=== PATIENT | male | born 1975 | race Caucasian/White ===

== ENCOUNTER 2016-05-07 18:36 | Observation (INO) ==
[2016-05-07] MEDS ORDERED: cloNIDine HCl 0.1 MG TABLET PO ONE (19:48)
--- NOTE | 2016-05-07 20:19 | Emergency Department Note ---
Disposition Clinical Impression: Asymptomatic hypertensive urgency Chronic pain Qualifiers: Chronic pain type: chronic pain syndrome Qualified Code(s): G89.4 - Chronic pain syndrome Disposition: Admitted As Inpatient Referrals: NO,PCP [Non-Partnered Physician] - Forms: Work/School Release, ED Satisfaction Letter Chest Pain HPI - General Chief Complaint: ED General Medical Stated Complaint: lung pain Time Seen by Provider: 05/07/16 19:30 Source: patient Vital Signs Reviewed: Yes Nursing Notes Reviewed: Yes - History of Present Illness HPI Narrative: Patient is here for chronic pleuritic chest pain he states when his chronic pain is flaring up they can control his blood pressure he comes in today with a 240 systolic blood pressure. He states is compliant with his medications and has taken all of his daily prescribed doses. Duration: constant Onset: during rest Pain Location: other (peluritic) Severity scale (1-10): 8 Quality: aching Pain Radiation: none Improves with: nothing Worsens with: nothing Associated symptoms: Denies: nausea, vomiting, diaphoresis, dyspnea, sense of impending doom, syncope, palpitations, leg swelling Treatments prior to arrival chest pain: other (oxycodone BP meds) - Related Data Home Medications Medication Instructions Recorded Confirmed Amlodipine [Norvasc] 10 mg PO BID 05/12/15 03/22/16 Calcium Acetate [Phos-LO] 1,334 mg PO TID 05/12/15 03/22/16 CloNIDine HCl [Clonidine HCl] 0.2 mg PO TID 05/12/15 03/22/16 Labetalol HCl 300 mg PO Q8H 05/12/15 03/22/16 Lisinopril [Zestril] 40 mg PO BID 05/12/15 03/22/16 Oxycodone HCl 10 - 20 mg PO Q4H PRN 01/22/16 03/22/16 Sertraline [Zoloft] 100 mg PO HS 01/22/16 03/22/16 NiCARdipine [Cardene] 20 mg PO TID 03/22/16 03/22/16 Renal Vitamin [Renal Caps Softgel] 1 mg PO DAILY 03/22/16 03/22/16 Testosterone [Androgel] 1.25 gm TD DAILY 03/22/16 03/22/16 Previous Rx's Medication Instructions Recorded HydrALAZINE 75 mg PO TID #0 01/24/16 Aspirin Enteric Coated [Aspirin EC] 81 mg PO DAILY #30 tablet. 03/24/16 Docusate [Colace] 100 mg PO BID capsule 03/24/16 Isosorbide DInitrate [Isordil] 20 mg PO TIDAC #90 tablet 03/24/16 Lisinopril [Zestril] 40 mg PO DAILY tablet 03/24/16 NiCARdipine [Cardene] 20 mg PO TID #90 capsule 03/24/16 Oxycodone HCl 10 - 20 mg PO Q4HR PRN #30 tab 03/24/16 Allergies Allergy/AdvReac Type Severity Reaction Status Date / Time Cephalosporins Allergy Hives Verified 05/07/16 19:16 codeine Allergy Hives Verified 05/07/16 19:16 Sulfa (Sulfonamide Allergy Hives Verified 05/07/16 19:16 Antibiotics) morphine AdvReac Difficulty Verified 05/07/16 19:16 Breathing All systems ED: reviewed and negative except as stated. Constitutional: Denies: fever, chills, weakness Gastrointestinal: Denies: abdominal pain, nausea, vomiting Chest Pain PMH - Past Medical History Medical history: Reports: arthritis, CHF, hypertension, pulmonary embolus, renal disease Surgical history: Reports: vascular surgery, other (Renal transplant 2003 and subsequent failure with removal of transplant 2013. AV fistula placement. Pleurodesis for recurrent left-sided pleural effusion.) Psychiatric history: Reports: anxiety, depression - Social History Smoking Status: Never smoker Alcohol use: Reports: none Drug use: Reports: none Physical Exam - General Limitations: no limitations General appearance: alert, in no apparent distress - Head Head exam: atraumatic, normocephalic, normal inspection - Eye Eye exam: Present: normal appearance, PERRL, EOMI - Expanded Eye Exam Pupils: Left: reactive - ENT ENT exam: normal exam, normal oropharynx, mucous membranes moist - Expanded ENT Exam External ear exam: Present: normal external inspection Mouth exam: Present: normal external inspection Teeth exam: Present: normal inspection Throat exam: Present: normal inspection - Neck Neck exam: Present: normal inspection, full ROM, trachea midline - Chest Chest inspection: Present: normal inspection, symmetric chest wall rise - Respiratory Respiratory exam: Present: normal lung sounds bilaterally - Cardiovascular Cardiovascular exam: Present: regular rate, normal rhythm, normal heart sounds - Abdominal Exam Abdominal exam: Present: soft, Non-Tender. Absent: tenderness, distention, guarding, rebound, rigidity - Extremities Exam Extremities exam: Present: normal inspection, full ROM. Absent: tenderness, pedal edema - Expanded Upper Extremity Exam Shoulder exam: Present: normal inspection, full ROM Arm exam: Present: other (Fistula left arm) Elbow exam: Present: normal inspection, full ROM Forearm/Wrist exam: Present: normal inspection, full ROM Hand exam: Present: normal inspection, full ROM Vascular exam: Normal: capillary refill, radial pulse - Expanded Lower Extremity Exam Hip/Pelvis exam: Present: normal inspection, full ROM Upper leg exam: Present: normal inspection, full ROM Knee exam: Present: normal inspection, full ROM Lower leg exam: Present: normal inspection, full ROM Ankle exam: Present: normal inspection, full ROM Foot/toe exam: Present: normal inspection, full ROM Neurovascular/Tendon exam: Absent: motor deficit, sensory deficit, tendon deficit - Back Exam Back exam: Present: normal inspection, full ROM. 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 Daniel did have dialysis today he states he is compliant with his medication I did make him aware of the patient's OARRS report, from March 27 and to April 15 he received a total of 600 tablets of oxycodone 10 mg. Time: 21:30 Vital Signs Temperature 98.9 F 05/07/16 19:10 Pulse Rate 64 05/07/16 19:10 Respiratory Rate 16 05/07/16 19:10 Blood Pressure 237/106 05/07/16 19:10 O2 Sat by Pulse Oximetry 99 05/07/16 19:10 Temperature 98.9 F 05/07/16 19:10 Pulse Rate 64 05/07/16 21:17 Respiratory Rate 16 05/07/16 21:17 Blood Pressure 195/112 05/07/16 21:17 O2 Sat by Pulse Oximetry 100 05/07/16 20:47 Oxygen Delivery Oxygen Delivery Room Air Chest Pain - Differential Diagnosis Likely: fracture of rib, stable angina, unstable angina pectoris, atypical chest pain, chest pain - Medical Records Medical records reviewed: Yes I reviewed the patient's medical records. - Lab Data Lab results reviewed: Yes I reviewed the patient's lab results. Result diagrams: 05/07/16 20:16 05/07/16 20:16 Lab Results 05/07/16 05/07/16 Range/Units 20:16 20:16 WBC 5.5 (4.3-11.1) K/mcL RBC 3.35 L (4.19-5.50) M/mcL Hgb 10.4 L (12.9-16.9) g/dL Hct 31.4 L (37.5-50.1) % MCV 93.7 (83.0-100.0) fL MCH 31.0 (28.0-33.3) pg MCHC 33.1 (31.6-35.5) g/dL RDW 15.1 H (11.5-14.5) % Plt Count 209 (140-400) K/mcL MPV 9.2 L (9.4-12.4) fL Sodium 137 (136-145) mEq/L Potassium 3.3 L (3.5-4.5) mEq/L Chloride 95 L (98-109) mEq/L Carbon Dioxide 26 (19-29) mEq/L BUN 33 H (8-26) mg/dL Creatinine 4.45 H (0.72-1.25) mg/dL Est GFR ( Amer) 18 L (> 60) Est GFR (Non-Af Amer) 15 L (> 60) BUN/Creatinine Ratio 7 (6-26) Glucose 143 H (70-99) mg/dL Calculated Osmolality 294 (280-300) Calcium 8.9 (8.6-10.8) mg/dL - Radiology Data Radiology results reviewed: Yes I reviewed the patient's radiology results.
[2016-05-07] MEDS ORDERED: *HR* HYDROmorphone (PF) 1 MG/ML SYRINGE IVP ONE ×2 (20:24→21:05)
[2016-05-07] MEDS ORDERED: Ondansetron 4 MG/2 ML VIAL IVP ONE (20:24)
[2016-05-07 20:26] LABS: Hematocrit 31.4 % (37.5-50.1); Hemoglobin 10.4 g/dL (12.9-16.9); Mean Corpuscular HGB Conc 33.1 g/dL (31.6-35.5); Mean Corpuscular Volume 93.7 fL (83.0-100.0); Mean Platelet Volume 9.2 fL (9.4-12.4); Platelet Count 209 K/mcL (140-400); Red Blood Count 3.35 M/mcL (4.19-5.50); Red Cell Distribution Width 15.1 % (11.5-14.5)
[2016-05-07 20:39] LABS: BUN/Creatinine Ratio 7 (6-26); Blood Urea Nitrogen 33 mg/dL (8-26); Calcium 8.9 mg/dL (8.6-10.8); Carbon Dioxide 26 mEq/L (19-29); Chloride 95 mEq/L (98-109); Glucose 143 mg/dL (70-99); Osmolality,Calculated 294 (280-300); Potassium 3.3 mEq/L (3.5-4.5); Sodium 137 mEq/L (136-145); eGFR For African Americans 18 (> 60); eGFR For Non-African Americans 15 (> 60)
[2016-05-07] MEDS ORDERED: niCARdipine 20 MG/200 ML MLS IVC SCH (21:30)
[2016-05-07 22:03] LABS: Acetaminophen < 1.0 mcg/mL (10-30); Alanine Aminotransferase 23 Units/L (0-55); Alkaline Phosphatase 94 Units/L (38-126); Aspartate Amino Transferase 22 Units/L (5-34); Bilirubin,Direct 0.2 mg/dL (0.0-0.5); Bilirubin,Indirect 0.4 mg/dL (0.0-1.2); Bilirubin,Total 0.6 mg/dL (0.2-1.2); Globulin 4.1 g/dL (2.4-3.5); Total Protein 8.1 g/dL (6.0-8.3)
[2016-05-08] MEDS ORDERED: Naloxone 0.4 MG/ML INJ IVP PRN (02:12)
[2016-05-08] MEDS ORDERED: *HR* HYDROmorphone (PF) 1 MG/ML SYRINGE IVP PRN (02:12)
[2016-05-08] MEDS ORDERED: Ondansetron ODT 4 MG TAB.RAPDIS SL PRN (02:12)
--- NOTE | 2016-05-08 05:08 | Internal Med History&Physical ---
Date of Encounter: 05/08/16 Time of Encounter: 00:30 Assessment and Plan (1) Asymptomatic hypertensive urgency Current visit: Yes Status: Acute ED gave Clonidine, Hydroxyzine, and Dilaudid 1mg x2 to stablize BP, which was 237/106 upon arrival Continue home medications IV hydroxyzine 10mg for SBP > 150 (2) Pleural effusion Current visit: Yes Status: Acute CXR with pulmonary vascular congestion and left pleural effusion This is a chronic left pleural effusion S/p left pleurodesis (3) Chronic pain Current visit: Yes Status: Chronic Patient was hospitalized in March, for this problem Patient is s/p pleurodesis x 2 for chronic left pleural effusions He states that his pain flares from time to time He admits to developing tolerance to his Oxycodon He admits that anastasiya Riggins will not see him as a patient His OARRS report in ED revealed that between March 27, 2016 and April 14, 2016 he received 600 pills of Oxycodon 10mg Qualifiers: Chronic pain type: chronic pain syndrome Qualified Code(s): G89.4 - Chronic pain syndrome (4) Heart murmur, systolic Current visit: Yes Status: Acute (5) ESRD (end stage renal disease) on dialysis Current visit: No Status: Chronic Internal Medicine - H&P: HPI Chief complaint: left chest pain, assymptomatic hypertensive emergency Admitted From: Emergency Dept Plans for Post Hospital Care: Home History of present illness: Mr. Mendez is a 40 year old male who presents to hospital today with complaints of left-sided chest pain. This problem has occurred multiple times in the past few years. He has a chronic pleural effusion that has been drained x 3. He has also had pleurodesis x 2, both times occurred greater than 1 year ago. Today he his having a left-sided sharp pain located from the level of T10 in the left back to the Left mid-axillary line in the front. Pain began 1 week ago , is constant, non-radiating, and rated 9/10 at onset. For the chronic lung pain, he takes Oxycodon 20mg q 4 hours. While he states that he was seeing Dr. Lomeli for pain medication prescription, he is now seeing KAILASH Wolfe. He states that his BP is elevated when his pain level is high. Upon arrival to the ED, patient's blood pressure was 237/106. This morning, at dialysis the BP was 218/108. It is common for him to have such pressures. e Deneis Headache, dizziness, blurry vision, double vision, floaters Past Med Surg Social Fam HX - Past Medical History Medical history: arthritis, CHF, hypertension, pulmonary embolus, renal disease Psychiatric history: anxiety, depression - Past Surgical History Surgical History: vascular surgery, other - Social History Smoking Status: Never smoker Smokeless Tobacco Status: No Alcohol use: none Drug use: none - Family History Father Living Status: Still Living Hx Family Cardiac Disorders: No Hx Family Respiratory Disorders: No Hx Family Cancer: No Hx Family GI Disorders: No Hx Family Endocrine Disorder: No Hx Family Neuromuscular Disorders: No Hx Family Neurologic Disorders: No Hx Family HEENT Disorders: No Hx Family Autoimmune Disorders: No Mother Adopted: [place]: Deloris Mendez Living Status: Age at : 70 Cause of : copd, emphysema, asthma Hx Family Cardiac Disorders: No Hx Family Respiratory Disorders: Yes Hx Family Cancer: No Hx Family GI Disorders: No Hx Family Genitourinary Disorders: No Hx Family Endocrine Disorder: No Hx Family Musculoskeletal Disorders: No Hx Family Neuromuscular Disorders: No Hx Family Neurologic Disorders: No Hx Family HEENT Disorders: No Hx Family Autoimmune Disorders: No Hx Family Reproductive Disorders: No Hx Family Psychosocial Disorders: No Hx Family Medical Disorders: No Internal Medicine - H&P: Meds Amlodipine [Norvasc] 10 mg PO BID 05/12/15 [History] Calcium Acetate [Phos-LO] 1,334 mg PO TIDWM 05/12/15 [History] CloNIDine HCl [Clonidine HCl] 0.2 mg PO TID 05/12/15 [History] Sertraline [Zoloft] 100 mg PO HS 01/22/16 [History] Renal Vitamin [Renal Caps Softgel] 1 mg PO DAILY 03/22/16 [History] Aspirin Enteric Coated [Aspirin EC] 81 mg PO DAILY #30 tablet. 03/24/16 [Rx] Isosorbide DInitrate [Isordil] 20 mg PO TIDAC #90 tablet 03/24/16 [Rx] Lisinopril [Zestril] 40 mg PO DAILY tablet 03/24/16 [Rx] NiCARdipine [Cardene] 20 mg PO TID #90 capsule 03/24/16 [Rx] Oxycodone HCl 10 - 20 mg PO Q4HR PRN #30 tab 03/24/16 [Rx] Carvedilol [Coreg] 6.25 mg PO BID 05/07/16 [History] Diltiazem [Cardizem] 30 mg PO QID 05/07/16 [History] HydrALAZINE 25 mg PO TID 05/07/16 [History] Allergies Cephalosporins Allergy (Verified 05/07/16 19:16) Hives codeine Allergy (Verified 05/07/16 19:16) Hives Sulfa (Sulfonamide Antibiotics) Allergy (Verified 05/07/16 19:16) Hives morphine Adverse Reaction (Verified 05/07/16 19:16) Difficulty Breathing All Systems PM: A 10-system review of systems was performed and is negative for pertinent findings except as documented above in the HPI. - Constitutional Constitutional: no chills, no fever(s) - EENT Eyes: no blurry vision, no diplopia, no floaters - Cardiovascular Cardiovascular ROS IM: edema, no chest pain, no irregular heart rhythm, no palpitations - Respiratory Respiratory: pain on inspiration, no cough - Gastrointestinal Gastrointestinal: no abdominal pain, no hematochezia, no melena, no nausea, no vomiting - Musculoskeletal Musculoskeletal ROS IM: no myalgias - Constitutional Vitals: Temp Pulse Resp BP Pulse Ox 97.7 F 85 20 120/75 96 05/08/16 03:00 05/08/16 03:00 05/08/16 03:00 05/08/16 03:00 05/08/16 03:00 General appearance: Present: A&O X 3, pleasant - Head Head exam: Present: atraumatic, normal inspection, normocephalic - Neck Neck exam general surgery: Present: full ROM - Respiratory Respiratory exam: Present: CTAB. Absent: rhonchi, wheezes - Cardiovascular Cardiovascular exam: Present: RRR, +S1, +S2, systolic murmur (5/6 holosystolic) - Extremities Exam Extremities exam: Absent: pedal edema Additional comments: fistula to left arm Internal Med - H&P Results - Labs CBC & Chem 7: 05/07/16 20:16 05/07/16 20:16 - Attending Attestation I examined this patient and my medical decision-making was reviewed with the VINEGAR MAKER/PA/Advanced Practice Nurse/Resident Physician. I agree with the documented findings, disposition and treatment plan as described except to the extent set forth below.
[2016-05-08] MEDS: *HR* HYDROmorphone (PF) 1 MG/ML SYRINGE IVP PRN ×5 (06:11→23:59)
--- NOTE | 2016-05-08 07:57 | Nephrology Consult Note ---
Date of Encounter: 05/08/16 Time of Encounter: 07:55 Assessment and Plan (1) Asymptomatic hypertensive urgency Current Visit: Yes Status: Acute Patient presents with episodic hypertensive urgency in the setting of worsening chronic left sided pleuritic chest pain. He says his blood pressure gets worse when his pain gets worse. He is on extremely high doses of narcotic analgesics and he claims that he is compliant with his antihypertensive medications. He is anephric and therefore renovascular disease should not be an issue. Currently his blood pressure is controlled. I would recommend continuing his current blood pressure regimen. We can check some catecholamines to see if there is any other reason for his episodic hypertension. (2) Chronic pain Current Visit: Yes Status: Chronic Qualifiers: Chronic pain type: chronic pain syndrome Qualified Code(s): G89.4 - Chronic pain syndrome (3) ESRD (end stage renal disease) on dialysis Current Visit: No Status: Chronic History of Present Illness - History of Present Illness This is a 40-year-old male with end-stage renal disease who receives dialysis every Tuesday. Patient presented to emergency room with recurrent worsening left-sided pleuritic chest pain and poorly controlled hypertension. Patient has had multiple hospital admissions for hypertensive urgency in the setting of worsening chronic pleuritic chest pain. He is treated in outpatient with oxycodone 20 mg every 4 hours. He is on multiple blood pressure medications. He is noted to have at times good control of his blood pressure at other times very poor control of his blood pressure. He is status post failed renal transplant. He is completely anephric. He denies any poor compliance with his antihypertensive medications. He received some Dilaudid here in the hospital. He is on his usual blood pressure medications as blood pressure this morning is controlled. He says he continues to have some left-sided chest pain but it is mildly improved compared to yesterday. Did undergo his usual dialysis yesterday. Past Med Surg Social Fam HX - Past Medical History Medical history: arthritis, CHF, hypertension, pulmonary embolus, renal disease Psychiatric history: anxiety, depression - Past Surgical History Surgical History: vascular surgery, other - Social History Smoking Status: Never smoker Smokeless Tobacco Status: No Alcohol use: none Drug use: none - Family History Father Living Status: Still Living Hx Family Cardiac Disorders: No Hx Family Respiratory Disorders: No Hx Family Cancer: No Hx Family GI Disorders: No Hx Family Endocrine Disorder: No Hx Family Neuromuscular Disorders: No Hx Family Neurologic Disorders: No Hx Family HEENT Disorders: No Hx Family Autoimmune Disorders: No Mother Adopted: [place]: Deloris Mendez Living Status: Age at : 70 Cause of : copd, emphysema, asthma Hx Family Cardiac Disorders: No Hx Family Respiratory Disorders: Yes Hx Family Cancer: No Hx Family GI Disorders: No Hx Family Genitourinary Disorders: No Hx Family Endocrine Disorder: No Hx Family Musculoskeletal Disorders: No Hx Family Neuromuscular Disorders: No Hx Family Neurologic Disorders: No Hx Family HEENT Disorders: No Hx Family Autoimmune Disorders: No Hx Family Reproductive Disorders: No Hx Family Psychosocial Disorders: No Hx Family Medical Disorders: No Medications and Allergies Amlodipine [Norvasc] 10 mg PO BID 05/12/15 [History] Calcium Acetate [Phos-LO] 1,334 mg PO TIDWM 05/12/15 [History] CloNIDine HCl [Clonidine HCl] 0.2 mg PO TID 05/12/15 [History] Sertraline [Zoloft] 100 mg PO HS 01/22/16 [History] Renal Vitamin [Renal Caps Softgel] 1 mg PO DAILY 03/22/16 [History] Aspirin Enteric Coated [Aspirin EC] 81 mg PO DAILY #30 tablet.dr 03/24/16 [Rx] Isosorbide DInitrate [Isordil] 20 mg PO TIDAC #90 tablet 03/24/16 [Rx] Lisinopril [Zestril] 40 mg PO DAILY tablet 03/24/16 [Rx] NiCARdipine [Cardene] 20 mg PO TID #90 capsule 03/24/16 [Rx] Oxycodone HCl 10 - 20 mg PO Q4HR PRN #30 tab 03/24/16 [Rx] Carvedilol [Coreg] 6.25 mg PO BID 05/07/16 [History] Diltiazem [Cardizem] 30 mg PO QID 05/07/16 [History] HydrALAZINE 25 mg PO TID 05/07/16 [History] Allergies Cephalosporins Allergy (Verified 05/07/16 19:16) Hives codeine Allergy (Verified 05/07/16 19:16) Hives Sulfa (Sulfonamide Antibiotics) Allergy (Verified 05/07/16 19:16) Hives morphine Adverse Reaction (Verified 05/07/16 19:16) Difficulty Breathing Review of Systems Constitutional: no excessive sweating, no weight loss Eyes: bilateral: blurred vision (patient denies), diplopia (patient denies) Nose, mouth and throat: no dizziness, no headache(s) Cardiovascular: chest pain Respiratory: no cough, no dyspnea Gastrointestinal: no abdominal pain, no change in bowel habits Musculoskeletal: no muscle weakness, no numbness Integumentary: no hirsutism, no striae Neurological: headache(s) Psychiatric: no depression, no difficulty concentrating Endocrine: as per HPI Exam - Vital Signs Vital signs: Initial Vital Signs Temp Pulse Resp BP Pulse Ox 98.9 F 64 16 237/106 99 05/07/16 19:10 05/07/16 19:10 05/07/16 19:10 05/07/16 19:10 05/07/16 19:10 Vital Signs - Last 8 Hours Temp Pulse Resp BP Pulse Ox 05/08/16 03:00 97.7 F 85 20 120/75 96 05/08/16 00:53 98.0 F 64 22 162/78 98 05/08/16 00:22 16 152/94 05/08/16 00:00 63 16 153/89 98 Intake and Output 05/07/16 05/07/16 05/08/16 15:59 23:59 07:59 Intake Total 0 / 0 Balance 0 / 0 Intake: Oral 0 / 0 Other: Weight 61.689 kg Patient Weight 05/08/16 23:59 Weight 61.689 kg - General Appearance Exam: Patient is currently alert and oriented. He is in no acute distress. Neck is supple. Lungs essentially clear to auscultation. Heart regular rate and rhythm with a 2/6. Ejection murmur. Abdomen shows normal bowel sounds bruits masses, megaly or tenderness. Lower extremity centeno no peripheral edema. There is a functioning AV fistula in the upper portion of the left arm. Results - Lab Results 05/07/16 20:16 05/07/16 20:16 Most recent lab results Calcium 8.9 mg/dL (8.6-10.8) 05/07/16 20:16 Consult Discharge Plan - Plan Referrals: Starla Wolfe, [employer] M[employer]INE OPERATOR [Primary Care Provider] -
[2016-05-08] MEDS: Renal Vitamin 1 MG CAPSULE PO SCH (08:50)
[2016-05-08] MEDS: Calcium Acetate 667 MG CAPSULE PO SCH ×3 (08:50→16:50)
[2016-05-08] MEDS: Aspirin Enteric Coated 81 MG Tablet PO SCH (08:50)
[2016-05-08] MEDS: hydrALAZINE 25 MG TABLET PO SCH ×3 (08:50→19:54)
[2016-05-08] MEDS ORDERED: Lisinopril 20 MG TABLET PO SCH (09:00)
[2016-05-08] MEDS: cloNIDine HCl 0.1 MG TABLET PO SCH ×3 (09:12→19:54)
--- NOTE | 2016-05-08 13:24 | Internal Med Progress Note ---
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 Current Visit: No Status: Chronic (6) ESRD (end stage renal disease) on dialysis Current Visit: No Status: Chronic - Subjective Interval history: 40 Y/O M PMH of HTN, ESRD on HD Patient being managed for asymptomatic HTN Urgency he also has chronic pain and recurrent pleural effusions His BP has improved Home meds have been restarted Will d/c Cardipine IV Nephrology was consulted and have sen work up for his episodic elevated BP He is seen at bedside , has no complains - Constitutional Vitals: Temp Pulse Resp BP Pulse Ox 97.8 F 56 16 138/79 96 05/08/16 12:07 05/08/16 12:07 05/08/16 12:07 05/08/16 12:07 05/08/16 12:07 General appearance: Present: A&O X 3, pleasant, no acute distress - Head Head exam: Present: atraumatic, normocephalic - Eye Eye exam: Present: PERRL, conjuntiva pink, sclera anicteric Pupils: Present: PERRL - Neck Neck exam general surgery: Present: supple, trachea midline. Absent: lymphadenopathy - Respiratory Respiratory exam: Present: CTAB. Absent: accessory muscle use, rales, rhonchi, wheezes - Cardiovascular Cardiovascular exam: Present: RRR, +S1, +S2, systolic murmur. Absent: diastolic murmur, gallop, rubs - GI/Abdominal GI/Abdominal exam: Present: normal bowel sounds, soft, no peritoneal signs. Absent: distended, tenderness - Extremities Exam Extremities exam: Absent: pedal edema Additional comments: Left AVF thrill - Neurological Exam Neurological exam: Present: CN II-XII intact, oriented X3, no focal deficits. Absent: pronater drift, facial droop, speech deficit - Skin Skin exam: Present: dry Internal Medicine: Result - Labs CBC & Chem 7: 05/07/16 20:16 05/07/16 20:16 - VTE Reasons for not Prescribing Prophylaxis: Treatment not Indicated - Low risk for VTE Consult Discharge Plan - Plan Referrals: Starla Wolfe CNP [Primary Care Provider] -
[2016-05-08] MEDS: *HR* Heparin 5,000 UNIT/ML VIAL SQ SCH (19:54)
[2016-05-09] MEDS: *HR* HYDROmorphone (PF) 1 MG/ML SYRINGE IVP PRN ×2 (03:54→08:06)
[2016-05-09] MEDS: *HR* Heparin 5,000 UNIT/ML VIAL SQ SCH (05:59)
--- NOTE | 2016-05-09 07:45 | Nephrology Progress Note ---
Date of Encounter: 05/09/16 Time of Encounter: 07:43 - Assessment and Plan (1) ESRD (end stage renal disease) on dialysis Current Visit: No Status: Chronic Patient will have his next dialysis tomorrow. I am going to increase his Zestril to 40 mg twice a day. His blood pressure medications should not be held predialysis. (2) Asymptomatic hypertensive urgency Current Visit: Yes Status: Resolved (3) Chronic pain Current Visit: Yes Status: Chronic Qualifiers: Chronic pain type: chronic pain syndrome Qualified Code(s): G89.4 - Chronic pain syndrome Subjective Interval history: Patient reports she is feeling some better. He continues to have pleuritic pain and is still requiring IV Dilaudid. He did have a rise in blood pressure last evening requiring some IV hydralazine. Objective - Vital Signs Vital signs: Vital Signs Temp Pulse Resp BP Pulse Ox 05/09/16 06:49 98.4 F 61 16 144/72 95 05/09/16 03:29 98.3 F 58 16 155/80 96 05/08/16 23:20 98.3 F 62 16 143/77 96 05/08/16 20:05 97.8 F 57 16 122/60 96 05/08/16 16:23 98.0 F 61 16 165/86 94 L 05/08/16 12:07 97.8 F 56 16 138/79 96 05/08/16 08:10 97.9 F 58 16 181/86 99 Intake and Output 05/08/16 05/08/16 05/09/16 15:59 23:59 07:59 Intake Total 120 / 120 0 / 0 Output Total 0 / 0 0 / 0 Balance 120 / 120 0 / 0 Intake: Oral 120 / 120 0 / 0 Output: Urine 0 / 0 0 / 0 Other: Weight 60.056 kg Patient Weight 05/09/16 23:59 Weight 60.056 kg - General Appearance Exam: Patient is alert and oriented. He is in no acute distress. Lungs breath sounds. Heart regular rate and rhythm with a 2/6 Dr. ejection murmur. Abdomen is benign. There is no lower extremity swelling. There is a functioning AV fistula in the left arm. - Lab 05/07/16 20:16 05/07/16 20:16 Most recent lab results Calcium 8.9 mg/dL (8.6-10.8) 05/07/16 20:16 - VTE Reasons for not Prescribing Prophylaxis: Treatment not Indicated - Low risk for VTE Consult Discharge Plan - Plan Referrals: Starla Wolfe CNP [Primary Care Provider] -
[2016-05-09] MEDS: cloNIDine HCl 0.1 MG TABLET PO SCH (08:08)
[2016-05-09] MEDS: Aspirin Enteric Coated 81 MG Tablet PO SCH (08:09)
[2016-05-09] MEDS: Renal Vitamin 1 MG CAPSULE PO SCH (08:09)
[2016-05-09] MEDS: Calcium Acetate 667 MG CAPSULE PO SCH ×2 (08:09→11:28)
[2016-05-09] MEDS: hydrALAZINE 25 MG TABLET PO SCH (08:09)
[2016-05-09 08:47] LABS: Calcium 9.1 mg/dL (8.6-10.8); Potassium 4.2 mEq/L (3.5-4.5)
[2016-05-09] MEDS ORDERED: Lisinopril 20 MG TABLET PO SCH (09:00)
[2016-05-09 10:45] VITALS: BP 129/65
[2016-05-09] MEDS ORDERED: *HR* OxyCODONE Immed Rel 5 MG TABLET PO PRN (10:55)
[2016-05-09] MEDS ORDERED: *HR* HYDROmorphone (PF) 1 MG/ML SYRINGE IVP ONE (13:34)
--- NOTE | 2016-05-09 13:34 | Discharge Summary ---
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 03/24/16 [Rx] Isosorbide DInitrate [Isordil] 20 mg PO TIDAC #90 tablet 03/24/16 [Rx] Lisinopril [Zestril] 40 mg PO DAILY tablet 03/24/16 [Rx] NiCARdipine [Cardene] 20 mg PO TID #90 capsule 03/24/16 [Rx] Oxycodone HCl 10 - 20 mg PO Q4HR PRN #30 tab 03/24/16 [Rx] Carvedilol [Coreg] 6.25 mg PO BID 05/07/16 [History] Diltiazem [Cardizem] 30 mg PO QID 05/07/16 [History] HydrALAZINE 25 mg PO TID 05/07/16 [History] Allergies/Adverse Reactions: Allergies Cephalosporins Allergy (Verified 05/07/16 19:16) Hives codeine Allergy (Verified 05/07/16 19:16) Hives Sulfa (Sulfonamide Antibiotics) Allergy (Verified 05/07/16 19:16) Hives morphine Adverse Reaction (Verified 05/07/16 19:16) Difficulty Breathing Procedures/tests Complete & Pending: Procedures Performed prior 72 hours Category Date Time Status ECG 12 lead ECG [ECG] Routine Y 05/07/16 19:39 Completed Date of admission: 05/07/16 22:48 Primary care physician: Starla Wolfe CNP Discharging clinician: Ranjit Lewis Anticipated date of discharge: 05/09/16 - Patient Status Disposition: Home, Self-Care Condition: Fair Functional capacity at discharge: independent ambulation Overall status at discharge: patient is back to baseline - Discharge Instructions Follow Up With: Starla Wolfe CNP [Primary Care Provider] - - Diet and Activity Activity: resume usual activities as tolerated Diet: advance to your usual diet Interval History: See below Hospital course: Mr. Mendez is a 40 year old male placed on observation for hypertensive urgency with necessity for nicardipine drip He has been restarted on home medications, titrated up to achive goal BP Plasma cathecholamines were ordered, pending result Patient is stable to go home on home medications Per patient, he follows with Dr. Greenfield and can follow up these results with him Resume usual dialysis schedule out-patient tomorrow Plan of care discussed, verbalizes understanding - Time Spent with Patient Total time spent providing and/or coordinating discharge services: Less than 30 minutes - Constitutional Vitals: Temp Pulse Resp BP Pulse Ox 98.3 F 58 16 129/65 97 05/09/16 10:43 05/09/16 10:43 05/09/16 10:43 05/09/16 10:43 05/09/16 10:43 General appearance: Present: A&O X 3, pleasant, no acute distress - Head Head exam: Present: atraumatic, normocephalic - Eye Eye exam: Present: PERRL, conjuntiva pink, sclera anicteric Pupils: Present: PERRL - Neck Neck exam general surgery: Present: supple, trachea midline. Absent: lymphadenopathy - Respiratory Respiratory exam: Present: CTAB. Absent: accessory muscle use, rales, rhonchi, wheezes - Cardiovascular Cardiovascular exam: Present: RRR, +S1, +S2, systolic murmur. Absent: diastolic murmur, gallop, rubs - GI/Abdominal GI/Abdominal exam: Present: normal bowel sounds, soft, no peritoneal signs. Absent: distended, tenderness - Extremities Exam Additional comments: TONYAE AVF - Neurological Exam Neurological exam: Present: CN II-XII intact, oriented X3, no focal deficits. Absent: pronater drift, facial droop, speech deficit - Skin Skin exam: Present: dry, intact - VTE Reasons for not Prescribing Prophylaxis: Treatment not Indicated - Low risk for VTE
--- NOTE | 2016-05-09 22:48 | Electrocardiograph Report ---
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
== END 2016-05-09 14:11 | disposition home or self-care (01) ==
LOC: EMEROO 18:36 → 2NNU 18:36 → 2ANU 05-08 00:37
PROVIDERS: ADMIT Family Medicine; ATTEND Family Medicine

== ENCOUNTER 2016-10-25 20:15 | Inpatient (IN) ==
[2016-10-26] MEDS ORDERED: Acetaminophen 325 MG TABLET PO PRN (00:19)
[2016-10-26] MEDS ORDERED: Ondansetron 4 MG/2 ML VIAL IVP PRN (00:19)
[2016-10-26] MEDS ORDERED: Naloxone 0.4 MG/ML INJ IVP PRN (00:19)
--- NOTE | 2016-10-26 00:48 | Internal Med History&Physical ---
Date of Encounter: 10/26/16 Time of Encounter: 00:41 Assessment and Plan (1) Hypertensive urgency Current visit: Yes Status: Acute 1. Will continue Nicardipine drip and titrate to maintain SBP 160-180. 2. Resume home meds and monitor clsoely. 3. Wean Nicardipine gtt off as BP control stabilizes. 4. Cycle troponins and EKG's. (2) Pleuritic chest pain Current visit: Yes Status: Acute 1. Patient received a dose of Lovenox 60 mg at [facility] prior to transfer. 2. Will proceed with CTA of chest to rule out a PE as I have a high clinical suspicion of PE. 3. Further anticoagulation to be determined one CTA results available. 4. Oxygen and supportive measures as necessary. (3) ESRD (end stage renal disease) Current visit: Yes Status: Acute 1. Consult Dr. Garcia for ongoing HD needs and assistance with BP management. (4) DVT prophylaxis Current visit: Yes Status: Acute 1. Patient received a therapeutic dose of Lovenox at [facility] prior to transfer. 2. Will start Heparin SQ later this morning unless CTA confirms PE. If such is hte case, anticoagulation will be instituted. Internal Medicine - H&P: HPI Chief complaint: chest pain; HTN Urgency Admitted From: Hospital to Hospital Transfer Plans for Post Hospital Care: Home History of present illness: Mr. Mendez is a 41 year old male who presents in transfer from [facility] in [place]. He presented there today and yesterday with pleuritic-type chest pain and elevated blood pressure. Today, his blood pressure was 230/100. He received some IV pain control, 60 mg dose of Lovenox, and was started on nicardipine drip for hypertensive emergency. He underwent a noncontrast CT the chest which revealed cardiomegaly and small pleural effusions. He was subsequently transferred to [place] for ongoing care and management. Upon my assessment of the patient, he appears comfortable and in no distress. However, he does state he still has some pleuritic-type chest pain. It has improved dramatically since he received a dose of Dilaudid at [facility]. He states he has been getting severe pleuritic chest pain during and after dialysis recently. His blood pressure has been difficult to control as well lately. He denies any heaviness in his chest. Rather, he's had severe sharp pains associated with dyspnea. He denies any prior clots in his legs or chest. He denies any prolonged travel. He denies any family history of clots. Unfortunately, the CT performed at [facility] was noncontrast and does not evaluate for pulmonary embolus. Patient denies any prior heart disease history. Presently, he remains on Nicardipine drip with stabilized blood pressure control. I reviewed all his records, labs, and CT report from [facility]. Past Med Surg Social Fam HX - Past Medical History Attestation: Yes The following information was validated with the patient. Source: patient, old records reviewed, other ([facility] ER records) Medical history: arthritis, CHF, dialysis, hypertension, pulmonary embolus, renal disease Psychiatric history: anxiety, depression - Past Surgical History Surgical History: vascular surgery, other - Social History Smoking Status: Never smoker Smokeless Tobacco Status: No Alcohol use: none Drug use: none Current living situation: Home, With Family Activity Level: Independent ambulation Recent Out of Country Travel Within the Last 8 Weeks: No - Family History Father History Unknown: Yes Living Status: Still Living Hx Family Cardiac Disorders: No Hx Family Respiratory Disorders: No Hx Family Cancer: No Hx Family GI Disorders: No Hx Family Endocrine Disorder: No Hx Family Neuromuscular Disorders: No Hx Family Neurologic Disorders: No Hx Family HEENT Disorders: No Hx Family Autoimmune Disorders: No Mother History Unknown: Yes Adopted: No Living Status: Hx Family Cardiac Disorders: No Hx Family Respiratory Disorders: Yes Hx Family Cancer: No Hx Family GI Disorders: No Hx Family Endocrine Disorder: No Hx Family Neuromuscular Disorders: No Hx Family Neurologic Disorders: No Hx Family HEENT Disorders: No Hx Family Autoimmune Disorders: No Internal Medicine - H&P: Meds Calcium Acetate [Phos-LO] 1,334 mg PO TIDWM 05/12/15 [History] amLODIPine [Norvasc] 10 mg PO BID 05/12/15 [History] cloNIDine HCl [Clonidine HCl] 0.2 mg PO TID 05/12/15 [History] Sertraline [Zoloft] 100 mg PO HS 01/22/16 [History] Renal Vitamin [Renal Caps Softgel] 1 mg PO DAILY 03/22/16 [History] Aspirin Enteric Coated [Aspirin EC] 81 mg PO DAILY #30 tablet.dr 03/24/16 [Rx] Isosorbide DInitrate [Isordil] 20 mg PO TIDAC #90 tablet 03/24/16 [Rx] Lisinopril [Zestril] 40 mg PO DAILY tablet 03/24/16 [Rx] niCARdipine [Cardene] 20 mg PO TID #90 capsule 03/24/16 [Rx] Carvedilol [Coreg] 6.25 mg PO BID 05/07/16 [History] Diltiazem [Cardizem] 30 mg PO QID 05/07/16 [History] hydrALAZINE [HydrALAZINE] 25 mg PO TID 05/07/16 [History] Oxycodone HCl 30 mg PO Q4HR PRN 10/25/16 [History] Allergies Cephalosporins Allergy (Verified 10/04/16 12:35) Hives codeine Allergy (Verified 10/04/16 12:35) Hives Sulfa (Sulfonamide Antibiotics) Allergy (Verified 10/04/16 12:35) Hives morphine Adverse Reaction (Verified 10/04/16 12:35) Difficulty Breathing - Constitutional Constitutional: no chills, no fever(s), no night sweats - EENT Eyes: no blurry vision, no change in vision Ears: no ear pain, no tinnitus Nose, mouth and throat: no nasal congestion, no sinus pressure, no sore throat - Cardiovascular Cardiovascular ROS IM: chest pain, dyspnea, dyspnea on exertion, lightheadedness , palpitations, no diaphoresis, no syncope - Respiratory Respiratory: dyspnea, dyspnea on exertion, pain on inspiration, no cough, no hemoptysis, no wheezing, no chest congestion, no excessive phlegm production, no change in phlegm color - Gastrointestinal Gastrointestinal: no abdominal pain, no diarrhea, no hematemesis, no hematochezia, no melena, no nausea, no vomiting - Genitourinary Genitourinary ROS male: no flank pain - Musculoskeletal Musculoskeletal ROS IM: no arthralgias, no back pain - Integumentary Integumentary IM: no rash, no jaundice - Neurological Neurological ROS: no focal weakness, no frequent falls, no headache(s) - Psychiatric Psychiatric: no anxiety, no depression - Endocrine Endocrine IM: no polydipsia, no polyuria - Hematologic/Lymphatic Hematologic/Lymphatic: no easy bruising, no lymphadenopathy - Allergic/Immunologic Allergic/Immunologic: no wheezing, no GI upset with certain foods - Constitutional Vitals: Temp Pulse Resp BP Pulse Ox 99.0 F 84 14 188/114 96 10/25/16 22:45 10/26/16 00:21 10/26/16 00:21 10/26/16 00:21 10/26/16 00:21 General appearance: Present: cooperative, A&O X 3, pleasant, no acute distress, answers questions appropriately - Head Head exam: Present: atraumatic, normal inspection - Eye Eye exam: Present: EOMI, normal appearance, PERRL. Absent: scleral icterus Pupils: Present: normal accommodation - ENT ENT exam: Present: mucous membranes dry, normal exam - Neck Neck exam general surgery: Present: full ROM, supple. Absent: lymphadenopathy, tenderness - Expanded Neck Exam Neck exam: Absent: carotid bruit - Respiratory Respiratory exam: Present: CTAB, respiratory distress (mild to moderate splinting with deep inspiration). Absent: chest wall tenderness, prolonged expiratory phase, rales, rhonchi, wheezes - Cardiovascular Cardiovascular exam: Present: RRR, +S1, +S2, systolic murmur (grade 2 - 3 ). Absent: diastolic murmur, JVD - GI/Abdominal GI/Abdominal exam: Present: normal bowel sounds, soft. Absent: hepatomegaly, mass, rebound, splenomegaly, tenderness - Extremities Exam Extremities exam: Present: full ROM, warm. Absent: calf tenderness, joint swelling, pedal edema - Back Exam Back exam: Present: normal inspection. Absent: CVA tenderness (L), CVA tenderness (R) - Neurological Exam Neurological exam: Present: alert, CN II-XII intact, oriented X3, no focal deficits - Psychiatric Psychiatric exam: Present: normal affect, normal mood - Skin Skin exam: Present: dry, warm. Absent: rash Internal Med - H&P Results - Labs Labs: I reviewed his last pulse 1 include the following: WBC 4.8 Hemoglobin 10.4 Hematocrit 33.6 Platelet count 229 69% segs 18% lymphs 11% monos Sodium 139 Potassium 4.2 Chloride 98 Carbon Dioxide 32 BUN 29 Creatinine 5.08 Glucose [address] chest without contrast -- cardiomegaly and small pleural effusions - EKG Data -: EKG Interpreted by Myself - EKG Data Prior EKG available for review: no EKG comments: 10/26/16 01:00 NSR; LAE, LVH
[2016-10-26] MEDS: niCARdipine 40 MG/200 ML MLS IVC SCH ×2 (00:55→09:03)
[2016-10-26] MEDS: *HR* HYDROmorphone (PF) 1 MG/ML SYRINGE IVP PRN ×2 (00:55→04:33)
[2016-10-26 02:49] LABS: Basophils # 0.1 K/mcL (0.0-0.2); Basophils % 1.1 %; Eosinophils # 0.2 K/mcL (0.0-0.6); Eosinophils % 3.4 %; Hematocrit 31.4 % (37.5-50.1); Hemoglobin 10.3 g/dL (12.9-16.9); Immature Granulocytes % 0.2 % (0-4); Lymphocytes # 1.1 K/mcL (0.6-4.6); Lymphocytes % 23.5 %; Mean Corpuscular HGB Conc 32.8 g/dL (31.6-35.5); Mean Corpuscular Hemoglobin 30.1 pg (28.0-33.3); Mean Corpuscular Volume 91.8 fL (83.0-100.0); Monocytes # 0.6 K/mcL (0.0-1.3); Monocytes % 13.8 %; Neutrophils # 2.7 K/mcL (1.6-8.9); Platelet Count 187 K/mcL (140-400); Red Blood Count 3.42 M/mcL (4.19-5.50); Red Cell Distribution Width 13.7 % (11.5-14.5)
[2016-10-26 02:54] LABS: INR 1.2; Prothrombin Time 13.5 Seconds (9.4-12.1)
[2016-10-26 02:56] LABS: Activated Partial Thrombo Time 37.3 Seconds (26.0-36.0)
[2016-10-26 03:10] LABS: Albumin 3.6 g/dL (3.5-5.0); Albumin/Globulin Ratio 1.2 (1.1-2.2); Bilirubin,Total 0.5 mg/dL (0.2-1.2); Calcium 8.7 mg/dL (8.6-10.8); Potassium 3.7 mEq/L (3.5-4.5); Total Protein 6.6 g/dL (6.0-8.3)
[2016-10-26] MEDS ORDERED: *HR* Heparin 5,000 UNIT/ML VIAL SQ SCH (06:00)
[2016-10-26] MEDS: Calcium Acetate 667 MG CAPSULE PO SCH ×2 (07:37→11:19)
[2016-10-26] MEDS: *HR* OxyCODONE Immed Rel 15 MG TABLET PO PRN ×2 (07:37→11:19)
--- NOTE | 2016-10-26 08:34 | Nephrology Consult Note ---
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 His blood pressure has always been somewhat difficult to control. He has had episodic hypertension for several years now. The hypertension seems to get worse when he develops worsening of his chronic pleuritic chest pain. There is also now question of whether or not he was exposed to some type of mold in his house. At this point the patient will continue to undergo dialysis every Tuesday. I would recommend resuming his outpatient antihypertensive medications. Hopefully the Cardene drip can then be weaned off. We will then make additional recommendations or requires any other adjustment in his antihypertensive medications. Patient is also scheduled to undergo a CT angiogram to rule out the possibility of a pulmonary embolism. (2) Hypertensive emergency Current Visit: No Status: Acute (3) Chest pain Current Visit: No Status: Chronic Qualifiers: Chest pain type: intercostal pain Qualified Code(s): R07.82 - Intercostal pain (4) Pleuritic chest pain Current Visit: Yes Status: Acute History of Present Illness - History of Present Illness This is a 41-year-old male with end-stage renal disease. He receives dialysis every Tuesday injection. Patient was admitted via [facility] ER with recent onset of chest pain shortness of breath and elevated blood pressure. Patient has a history of chronic pleuritic chest pain for which she takes chronic narcotic analgesics. He said pleurodesis in the past. He does have a history of when his pain becomes worse his blood pressure becomes poorly controlled and oftentimes requires hospitalization because of hypertensive urgency. He currently is on a nicardipine drip with improvement in his blood pressure. Patient also says he recently discovered some type of mold in his house and when he would Cond[place] was house he would develop shortness of breath and chest discomfort as well. He thinks this may have contributed to his most recent acute episode. Prior to this admission the patient's blood pressure had been doing well. Systolic blood pressure had been running 120 to 1:30 on multiple oral medications when he would come to dialysis. Patient is compliant with dialysis attendance and also compliant with taking his medications. Past Med Surg Social Fam HX - Past Medical History Medical history: arthritis, CHF, dialysis, hypertension, pulmonary embolus, renal disease Psychiatric history: anxiety, depression - Past Surgical History Surgical History: vascular surgery, other - Social History Smoking Status: Never smoker Smokeless Tobacco Status: No Alcohol use: none Drug use: none - Family History Father History Unknown: Yes Living Status: Still Living Hx Family Cardiac Disorders: No Hx Family Respiratory Disorders: No Hx Family Cancer: No Hx Family GI Disorders: No Hx Family Endocrine Disorder: No Hx Family Neuromuscular Disorders: No Hx Family Neurologic Disorders: No Hx Family HEENT Disorders: No Hx Family Autoimmune Disorders: No Mother History Unknown: Yes Adopted: No Living Status: Hx Family Cardiac Disorders: No Hx Family Respiratory Disorders: Yes Hx Family Cancer: No Hx Family GI Disorders: No Hx Family Endocrine Disorder: No Hx Family Neuromuscular Disorders: No Hx Family Neurologic Disorders: No Hx Family HEENT Disorders: No Hx Family Autoimmune Disorders: No Medications and Allergies Calcium Acetate [Phos-LO] 1,334 mg PO TIDWM 05/12/15 [History] amLODIPine [Norvasc] 10 mg PO BID 05/12/15 [History] cloNIDine HCl [Clonidine HCl] 0.2 mg PO TID 05/12/15 [History] Sertraline [Zoloft] 100 mg PO HS 01/22/16 [History] Renal Vitamin [Renal Caps Softgel] 1 mg PO DAILY 03/22/16 [History] Aspirin Enteric Coated [Aspirin EC] 81 mg PO DAILY #30 tablet. 03/24/16 [Rx] Isosorbide DInitrate [Isordil] 20 mg PO TIDAC #90 tablet 03/24/16 [Rx] Lisinopril [Zestril] 40 mg PO DAILY tablet 03/24/16 [Rx] niCARdipine [Cardene] 20 mg PO TID #90 capsule 03/24/16 [Rx] Carvedilol [Coreg] 6.25 mg PO BID 05/07/16 [History] Diltiazem [Cardizem] 30 mg PO QID 05/07/16 [History] hydrALAZINE [HydrALAZINE] 25 mg PO TID 05/07/16 [History] Oxycodone HCl 30 mg PO Q4HR PRN 10/25/16 [History] Allergies Cephalosporins Allergy (Verified 10/04/16 12:35) Hives codeine Allergy (Verified 10/04/16 12:35) Hives Sulfa (Sulfonamide Antibiotics) Allergy (Verified 10/04/16 12:35) Hives morphine Adverse Reaction (Verified 10/04/16 12:35) Difficulty Breathing Review of Systems Constitutional: as per HPI Nose, mouth and throat: no dizziness, no headache(s) Cardiovascular: as per HPI, chest pain at rest, dyspnea, dyspnea on exertion Respiratory: dyspnea, dyspnea on exertion Gastrointestinal: no abdominal pain, no change in bowel habits Musculoskeletal: no muscle weakness, no numbness Integumentary: no hirsutism, no striae Neurological: as per HPI Psychiatric: no depression, no difficulty concentrating Endocrine: as per HPI Exam - Vital Signs Vital signs: Initial Vital Signs Temp Pulse Resp BP Pulse Ox 99.0 F 80 12 175/102 98 10/25/16 22:45 10/25/16 22:45 10/25/16 22:45 10/25/16 22:45 10/25/16 22:45 Vital Signs - Last 8 Hours Temp Pulse Resp BP Pulse Ox 10/26/16 07:42 96 16 161/88 96 10/26/16 07:25 97.6 F 81 14 167/92 95 10/26/16 06:00 79 10/26/16 05:30 79 158/88 10/26/16 03:30 98 F 80 15 165/104 95 10/26/16 02:56 76 10/26/16 02:41 98.3 F 77 14 164/101 96 10/26/16 01:00 79 16 160/97 96 Intake and Output 10/25/16 10/26/16 10/26/16 23:59 07:59 15:59 Intake Total 200 / 200 Output Total 0 / 0 Balance 200 / 200 Intake: Oral 200 / 200 Output: Urine 0 / 0 Other: Weight 64.1 kg 63 kg Patient Weight 10/26/16 23:59 Weight 63 kg - General Appearance Exam: Patient is alert and oriented. He is in no acute distress. Blood pressure is 167/92. He is currently on a Cardene drip. Neck supple. Lungs clear to auscultation. There are some diminished breath sounds in the bases. Heart regular rate and rhythm with a 2/6 systolic ejection murmur. Abdomen shows no normal bowel sounds. No bruits masses organomegaly or tenderness. Multiple surgical scars from previous renal transplants and nephrectomies. There is no peripheral edema. There is a functioning AV fistula in the left arm. Results - Lab Results 10/26/16 01:33 10/26/16 01:33 Most recent lab results Calcium 8.7 mg/dL (8.6-10.8) 10/26/16 01:33 Magnesium 2.0 mg/dL (1.6-2.6) 10/26/16 01:33 Consult Discharge Plan - Plan Referrals: Starla Wolfe, [employer] [Primary Care Provider] -
[2016-10-26] MEDS ORDERED: cloNIDine HCl 0.1 MG TABLET PO SCH (09:00)
[2016-10-26] MEDS ORDERED: amLODIPine 5 MG TABLET PO SCH (09:00)
[2016-10-26] MEDS ORDERED: Lisinopril 20 MG TABLET PO SCH (09:00)
[2016-10-26] MEDS ORDERED: Aspirin Enteric Coated 81 MG Tablet PO SCH (09:00)
[2016-10-26] MEDS ORDERED: hydrALAZINE 25 MG TABLET PO SCH (09:00)
[2016-10-26] MEDS ORDERED: Renal Vitamin 1 MG CAPSULE PO SCH (09:00)
[2016-10-26 12:28] VITALS: BP 148/97
--- NOTE | 2016-10-26 13:34 | Discharge Summary ---
Date of Encounter: 10/26/16 Time of Encounter: 13:31 - Discharge Medications Home Medications: Calcium Acetate [Phos-LO] 1,334 mg PO TIDWM 05/12/15 [History] amLODIPine [Norvasc] 10 mg PO BID 05/12/15 [History] cloNIDine HCl [Clonidine HCl] 0.2 mg PO TID 05/12/15 [History] Sertraline [Zoloft] 100 mg PO HS 01/22/16 [History] Renal Vitamin [Renal Caps Softgel] 1 mg PO DAILY 03/22/16 [History] Aspirin Enteric Coated [Aspirin EC] 81 mg PO DAILY #30 tablet. 03/24/16 [Rx] Isosorbide DInitrate [Isordil] 20 mg PO TIDAC #90 tablet 03/24/16 [Rx] Lisinopril [Zestril] 40 mg PO DAILY tablet 03/24/16 [Rx] niCARdipine [Cardene] 20 mg PO TID #90 capsule 03/24/16 [Rx] Carvedilol [Coreg] 6.25 mg PO BID 05/07/16 [History] Diltiazem [Cardizem] 30 mg PO QID 05/07/16 [History] Oxycodone HCl 30 mg PO Q4HR PRN 10/25/16 [History] Labetalol HCl 300 mg PO BID 10/26/16 [History] hydrALAZINE [HydrALAZINE] 50 mg PO TID #0 10/26/16 [Rx] Allergies/Adverse Reactions: Allergies Cephalosporins Allergy (Verified 10/04/16 12:35) Hives codeine Allergy (Verified 10/04/16 12:35) Hives Sulfa (Sulfonamide Antibiotics) Allergy (Verified 10/04/16 12:35) Hives morphine Adverse Reaction (Verified 10/04/16 12:35) Difficulty Breathing Procedures/tests Complete & Pending: Procedures Performed prior 72 hours Category Date Time Status CT angio chest [CT] Routine Cat Scan 10/26/16 10:30 Completed ECG 12 lead ECG [ECG] AM 0600 Y 10/26/16 06:00 Ordered Date of admission: 10/26/16 01:14 Primary care physician: Starla Wolfe CNP Consults: 10/26/16 00:22 Consult to Physician [CONS] Routine Consulting Provider: Camden Garcia Reason for Consult: ESRD on HD Call Completed: Yes - Patient Status Disposition: Left Against Medical Advice Condition: Fair Functional capacity at discharge: independent ambulation Overall status at discharge: patient is not back to baseline - Discharge Instructions Follow Up With: Starla Wolfe CNP [Primary Care Provider] - 11/02/16 1:00 pm () - Diet and Activity Activity: resume usual activities as tolerated Diet: low fat, low cholesterol, low salt diet Interval History: Patient states he is going home now. I explained to him that his blood pressure is 154/105 and that he needs to stay for adjustment of his blood pressure medications. He states that his blood pressure now is much better than what it usually runs at home and that he can take care of that at home. He declines staying in the hospital any longer, but he agrees to one dose of IV hydralazine before leaving the hospital. Hospital course: Mr. Mendez is a 41 year old male with past medical history of hypertension, and end-stage renal disease on hemodialysis who presented with a chief complaint of chest pain. In the halls or ED, his blood pressure was 230/100 were here is able to IV pain medication and was started on a Cardene drip. Patient was wean off Cardene drip and resume his blood pressure medications but blood pressure was not Controlled Luis at ice back to the patient about staying in the hospital to adjust his blood pressure medications however he declined. He states that his blood pressure usually runs high and he can take care of it at home. I explained to him in detail the severity of his diagnosis and prognosis if he does not control his blood pressure including stroke, acute myocardial infarction and aortic dissection. He verbalizes understanding but declined to remain in the hospital any longer. He did agree to follow-up in the dialysis clinic tomorrow. PLAN: I increased his dose of hydralazine to 50 mg 3 times a day. Patient was instructed to check blood pressure twice daily and bring record to doctor's appointment. - Time Spent with Patient Total time spent providing and/or coordinating discharge services: - Constitutional Vitals: Temp Pulse Resp BP Pulse Ox 97.8 F 63 18 148/97 100 10/26/16 11:21 10/26/16 11:21 10/26/16 11:21 10/26/16 12:27 10/26/16 11:21 General appearance: Present: cooperative, A&O X 3, pleasant, no acute distress, answers questions appropriately - Eye Eye exam: Present: PERRL, sclera anicteric - Neck Neck exam general surgery: Present: supple, trachea midline. Absent: lymphadenopathy - Respiratory Respiratory exam: Present: CTAB - Cardiovascular Cardiovascular exam: Present: RRR - GI/Abdominal GI/Abdominal exam: Present: normal bowel sounds, soft. Absent: distended, tenderness - Extremities Exam Extremities exam: Present: pedal edema (1+ LE edema) - Back Exam Back exam: Absent: CVA tenderness (L), CVA tenderness (R) - Neurological Exam Neurological exam: Present: alert, oriented X3, no focal deficits, strengths equal and symetr throughout. Absent: facial droop, speech deficit - Skin Skin exam: Absent: rash
[2016-10-26 13:49] LABS: Hepatitis B Surface Antigen Nonreactive (Nonreactive)
[2016-10-27 10:44] LABS: Hepatitis B Surface Antibody 1.28 mIU/mL
== END 2016-10-26 14:17 | disposition left against medical advice (07) | DRG 304 ==
LOC: 2NNU
PROVIDERS: ADMIT Pediatrics; ATTEND Internal Medicine

== ENCOUNTER 2017-02-12 14:25 | Inpatient (IN) ==
[2017-02-12] MEDS ORDERED: Aspirin 81 MG TAB.CHEW PO ONE (15:12)
--- NOTE | 2017-02-12 15:15 | Emergency Department Note ---
Disposition Clinical Impression: ESRD (end stage renal disease) on dialysis Chest pain Qualifiers: Chest pain type: unspecified Qualified Code(s): R07.9 - Chest pain, unspecified Disposition: Admitted As Inpatient Condition: Good Referrals: Starla Wolfe CNP [Primary Care Provider] - Forms: ED Satisfaction Letter Time of Disposition: 16:24 Chest Pain HPI - General Chief Complaint: ED Chest Pain Stated Complaint: Chest pain Time Seen by Provider: 02/12/17 15:02 Source: patient Limitations: no limitations Vital Signs Reviewed: Yes Nursing Notes Reviewed: Yes - History of Present Illness HPI Narrative: 41-year-old male with history of end-stage renal disease on dialysis presents complaining of some intermittent left upper chest pains over the past 5 days. The pain is gradually become worse and has been more constant today. Some radiation to the left neck and left arm with intermittent tingling and numbness in the left arm. No increased shortness of breath. The pain occurs at rest and is not associated with exertion. No diaphoresis. No nausea or vomiting. Patient had a kidney transplant in the past which has failed and was removed several years ago. His last dialysis was yesterday. He does admit to chest pain at present and rates his pain a 6 out of 10. Pt complaint: chest pain Onset (ago): day(s) (5) Duration: intermittent, gradually worsening Onset: during rest Pain Location: left chest Severity: moderate Severity scale (1-10): 7 Quality: sharp Pain Radiation: LUE, neck Improves with: nothing Worsens with: movement Treatments prior to arrival chest pain: none - Related Data Home Medications Medication Instructions Recorded Confirmed Calcium Acetate [Phos-LO] 1,334 mg PO TIDWM 05/12/15 10/26/16 amLODIPine [Norvasc] 10 mg PO BID 05/12/15 10/26/16 cloNIDine HCl [Clonidine HCl] 0.2 mg PO TID 05/12/15 10/26/16 Sertraline [Zoloft] 100 mg PO HS 01/22/16 10/26/16 Renal Vitamin [Renal Caps Softgel] 1 mg PO DAILY 03/22/16 10/26/16 Carvedilol [Coreg] 6.25 mg PO BID 05/07/16 10/26/16 Diltiazem [Cardizem] 30 mg PO QID 05/07/16 10/26/16 Oxycodone HCl 30 mg PO Q4HR PRN 10/25/16 10/26/16 Labetalol HCl 300 mg PO BID 10/26/16 10/26/16 Previous Rx's Medication Instructions Recorded Aspirin Enteric Coated [Aspirin EC] 81 mg PO DAILY #30 tablet. 03/24/16 Isosorbide DInitrate [Isordil] 20 mg PO TIDAC #90 tablet 03/24/16 Lisinopril [Zestril] 40 mg PO DAILY tablet 03/24/16 niCARdipine [Cardene] 20 mg PO TID #90 capsule 03/24/16 hydrALAZINE [HydrALAZINE] 50 mg PO TID #0 10/26/16 Allergies Allergy/AdvReac Type Severity Reaction Status Date / Time Cephalosporins Allergy Hives Verified 10/04/16 12:35 codeine Allergy Hives Verified 10/04/16 12:35 Sulfa (Sulfonamide Allergy Hives Verified 10/04/16 12:35 Antibiotics) morphine AdvReac Difficulty Verified 10/04/16 12:35 Breathing All systems ED: reviewed and negative except as stated. Constitutional: Denies: fever Cardiovascular: Reports: chest pain. Denies: palpitations Respiratory: Denies: cough, dyspnea Gastrointestinal: Denies: abdominal pain, nausea, vomiting, diarrhea Genitourinary: Denies: dysuria Chest Pain PMH - Past Medical History Medical history: Reports: arthritis, CHF, dialysis, hypertension, pulmonary embolus, renal disease Surgical history: Reports: vascular surgery, other Psychiatric history: Reports: anxiety, depression - Social History Smoking Status: Never smoker Alcohol use: Reports: none Drug use: Reports: none Physical Exam - General Limitations: no limitations General appearance: alert, anxious - Head Head exam: atraumatic, normocephalic, normal inspection - Eye Eye exam: Present: normal appearance, PERRL, EOMI. Absent: scleral icterus, conjunctival injection - ENT ENT exam: normal exam, normal oropharynx, mucous membranes moist, TM's normal bilaterally, normal external ear exam - Neck Neck exam: Present: normal inspection, full ROM, trachea midline. Absent: tenderness, meningismus, lymphadenopathy - Chest Chest inspection: Present: normal inspection, symmetric chest wall rise. Absent : tenderness - Respiratory Respiratory exam: Present: normal lung sounds bilaterally. Absent: respiratory distress, wheezes - Cardiovascular Cardiovascular exam: Present: regular rate, normal rhythm, systolic murmur ( Grade 3/6) - Abdominal Exam Abdominal exam: Present: soft, Non-Tender, normal bowel sounds - Extremities Exam Extremities exam: Present: normal inspection. Absent: tenderness, pedal edema - Back Exam Back exam: Present: normal inspection. Absent: CVA tenderness (R), CVA tenderness (L) - Neurological Exam Neurological exam: Present: alert, oriented X3. Absent: motor sensory deficit - Psychiatric Psychiatric exam: Present: normal affect, normal mood - Skin Skin exam: Present: warm, dry, intact. Absent: cyanosis, diaphoresis Course Course Narrative: 41-year-old male with end-stage renal disease on hemodialysis and history of CHF as well as recurrent pleural effusions presents complaining of some sharp left upper chest pains over the past several days which have become progressively worse and more constant today. EEG shows new T-wave inversions laterally. Chest pain workup initiated. Patient given aspirin and nitroglycerin. Likely admission. - Consultations Consultation #1: Discussed case with the hospitalist, Dr. Arevalo, and he accepted admission of the patient for chest pain rule out MN. Time: 16:21 Vital Signs Temperature 98 F 02/12/17 14:28 Pulse Rate 70 02/12/17 14:28 Respiratory Rate 18 02/12/17 14:28 Blood Pressure 121/65 02/12/17 14:28 O2 Sat by Pulse Oximetry 96 02/12/17 14:28 Temperature 98 F 02/12/17 14:28 Pulse Rate 62 02/12/17 15:30 Respiratory Rate 16 02/12/17 15:30 Blood Pressure 124/54 02/12/17 15:30 O2 Sat by Pulse Oximetry 96 02/12/17 15:30 Oxygen Delivery Oxygen Delivery Room Air Chest Pain - Medical Records Medical records reviewed: Yes I reviewed the patient's medical records. - Lab Data Lab results reviewed: Yes I reviewed the patient's lab results. Result diagrams: 02/12/17 15:30 02/12/17 15:30 Lab Results 02/12/17 02/12/17 02/12/17 Range/Units 15:30 15:30 15:30 WBC 4.8 (4.3-11.1) K/mcL RBC 3.52 L (4.19-5.50) M/mcL Hgb 10.8 L (12.9-16.9) g/dL Hct 32.0 L (37.5-50.1) % MCV 90.9 (83.0-100.0) fL MCH 30.7 (28.0-33.3) pg MCHC 33.8 (31.6-35.5) g/dL RDW 13.5 (11.5-14.5) % Plt Count 173 (140-400) K/mcL MPV 9.7 (9.4-12.4) fL Immature Gran % 0.2 (0-4) % Seg Neutrophils % 68.6 % Lymphocytes % 17.4 % Monocytes % 10.5 % Eosinophils % 2.3 % Basophils % 1.0 % Neutrophils # 3.3 (1.6-8.9) K/mcL Lymphocytes # 0.8 (0.6-4.6) K/mcL Monocytes # 0.5 (0.0-1.3) K/mcL Eosinophils # 0.1 (0.0-0.6) K/mcL Basophils # 0.1 (0.0-0.2) K/mcL PT 12.9 H (9.4-12.1) Seconds INR 1.2 APTT 31.3 (26.0-36.0) Seconds Sodium 137 (136-145) mEq/L Potassium 4.0 (3.5-4.5) mEq/L Chloride 100 (98-109) mEq/L Carbon Dioxide 25 (19-29) mEq/L BUN 27 H (8-26) mg/dL Creatinine 6.03 H (0.72-1.25) mg/dL Est GFR ( Amer) 13 L (> 60) Est GFR (Non-Af Amer) 10 L (> 60) BUN/Creatinine Ratio 4 L (6-26) Glucose 97 (70-99) mg/dL Calculated Osmolality 289 (280-300) Calcium 8.4 L (8.6-10.8) mg/dL Troponin I (0-0.03) ng/mL 02/12/17 Range/Units 15:30 WBC (4.3-11.1) K/mcL RBC (4.19-5.50) M/mcL Hgb (12.9-16.9) g/dL Hct (37.5-50.1) % MCV (83.0-100.0) fL MCH (28.0-33.3) pg MCHC (31.6-35.5) g/dL RDW (11.5-14.5) % Plt Count (140-400) K/mcL MPV (9.4-12.4) fL Immature Gran % (0-4) % Seg Neutrophils % % Lymphocytes % % Monocytes % % Eosinophils % % Basophils % % Neutrophils # (1.6-8.9) K/mcL Lymphocytes # (0.6-4.6) K/mcL Monocytes # (0.0-1.3) K/mcL Eosinophils # (0.0-0.6) K/mcL Basophils # (0.0-0.2) K/mcL PT (9.4-12.1) Seconds INR APTT (26.0-36.0) Seconds Sodium (136-145) mEq/L Potassium (3.5-4.5) mEq/L Chloride (98-109) mEq/L Carbon Dioxide (19-29) mEq/L BUN (8-26) mg/dL Creatinine (0.72-1.25) mg/dL Est GFR ( Amer) (> 60) Est GFR (Non-Af Amer) (> 60) BUN/Creatinine Ratio (6-26) Glucose (70-99) mg/dL Calculated Osmolality (280-300) Calcium (8.6-10.8) mg/dL Troponin I 0.06 H* (0-0.03) ng/mL - Radiology Data Radiology results reviewed: Yes I reviewed the patient's radiology results. Chest X-Ray 02/12/17 14:46 IMPRESSION: 1. No evidence of acute cardiopulmonary disease. 2. Cardiomegaly. D/ / Dre Godinez MD / Dre Godinez MD Interpreting Provider: Dre Godinez MD - EKG Data EKG attestation: Yes I reviewed and interpreted this EKG. EKG results narrative: Normal sinus rhythm, heart rate 67, possible left atrial enlargement, LVH with ST and T-wave changes, new T-wave inversions in lead 1, aVL, and V6. No acute ST elevation or depression noted.
[2017-02-12] MEDS: Nitroglycerin 0.4 MG TAB.SUBL SL PRN ×2 (15:20→15:30)
[2017-02-12 15:39] LABS: Basophils # 0.1 K/mcL (0.0-0.2); Eosinophils # 0.1 K/mcL (0.0-0.6); Eosinophils % 2.3 %; Hemoglobin 10.8 g/dL (12.9-16.9); Immature Granulocytes % 0.2 % (0-4); Lymphocytes # 0.8 K/mcL (0.6-4.6); Lymphocytes % 17.4 %; Mean Corpuscular HGB Conc 33.8 g/dL (31.6-35.5); Mean Corpuscular Hemoglobin 30.7 pg (28.0-33.3); Mean Corpuscular Volume 90.9 fL (83.0-100.0); Mean Platelet Volume 9.7 fL (9.4-12.4); Monocytes # 0.5 K/mcL (0.0-1.3); Monocytes % 10.5 %; Neutrophils # 3.3 K/mcL (1.6-8.9); Platelet Count 173 K/mcL (140-400); Red Blood Count 3.52 M/mcL (4.19-5.50); Red Cell Distribution Width 13.5 % (11.5-14.5); Segmented Neutrophils % 68.6 %
[2017-02-12 15:44] LABS: INR 1.2; Prothrombin Time 12.9 Seconds (9.4-12.1)
[2017-02-12 15:47] LABS: Activated Partial Thrombo Time 31.3 Seconds (26.0-36.0)
[2017-02-12 15:51] LABS: Calcium 8.4 mg/dL (8.6-10.8)
[2017-02-12] MEDS ORDERED: *HR* HYDROmorphone (PF) 1 MG/ML SYRINGE IVP ONE ×2 (16:10→17:09)
[2017-02-12] MEDS ORDERED: Acetaminophen 325 MG TABLET PO PRN (20:01)
[2017-02-12] MEDS ORDERED: *HR* OxyCODONE Immed Rel 5 MG TABLET PO PRN (20:01)
[2017-02-12] MEDS ORDERED: Ondansetron 4 MG/2 ML VIAL IVP PRN (20:01)
[2017-02-12] MEDS ORDERED: Naloxone 0.4 MG/ML INJ IVP PRN (20:01)
--- NOTE | 2017-02-12 20:10 | Internal Med History&Physical ---
Date of Encounter: 02/12/17 Time of Encounter: 20:07 Assessment and Plan (1) Atypical chest pain Current visit: No Status: Chronic Possibly related to left vascular stent on AV fistula Monitor with telemetry, follow troponins Can check a limited echocardiogram Continue aspirin Omeprazole for GI prophylaxis and subcutaneous heparin for DVT prophylaxis. The patient will be admitted for observation. Full code. Time spent on this admission 40 minutes (2) Malignant hypertension Current visit: No Status: Acute On multiple medications, continue all of them for now (3) ESRD (end stage renal disease) on dialysis Current visit: Yes Status: Chronic (4) Diastolic CHF Current visit: No Status: Chronic No exacerbation Qualifiers: Congestive heart failure chronicity: chronic Qualified Code(s): I50.32 - Chronic diastolic (congestive) heart failure Internal Medicine - H&P: HPI Chief complaint: Chest pain Admitted From: Emergency Dept History of present illness: Mr. Mendez is a 41 year old male with a past medical history of end-stage renal disease on hemodialysis, malignant hypertension, diastolic CHF, pleural effusion who came to the emergency room complaining of 5 days of intermittent chest pain mostly on the left side, sharp 6 out of 10 in intensity accompanied by left neck pain and tingling on the left arm. The patient had a normal cardiac catheterization couple years ago up in [place] and he says 6 months ago he had a normal stress test in [place]. EKG showed a T-wave inversion only in V6. The point was 0.06 the patient has chronically elevated troponins. Chest x-ray shows cardiomegaly. Is denying any other complaints. The patient says the pain is coming where he had a stent in his shoulder due to his AV fistula Past Med Surg Social Fam HX - Past Medical History Medical history: arthritis, CHF (Diastolic), dialysis (End-stage renal disease on hemodialysis, patient of Dr. 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, left approximately IV fistula with a stent placement, pleurodeses due to left pleural effusion) - Social History Smoking Status: Never smoker Smokeless Tobacco Status: No Alcohol use: none Drug use: none - Family History Father Living Status: Still Living Hx Family Cardiac Disorders: No Hx Family Respiratory Disorders: No Hx Family Cancer: No Hx Family GI Disorders: No Hx Family Endocrine Disorder: No Hx Family Neuromuscular Disorders: No Hx Family Neurologic Disorders: No Hx Family HEENT Disorders: No Hx Family Autoimmune Disorders: No Mother Adopted: No Living Status: Hx Family Cardiac Disorders: No Hx Family Respiratory Disorders: Yes Hx Family Cancer: No Hx Family GI Disorders: No Hx Family Endocrine Disorder: No Hx Family Neuromuscular Disorders: No Hx Family Neurologic Disorders: No Hx Family HEENT Disorders: No Hx Family Autoimmune Disorders: No - Additional Family History Additional family history: Mother with COPD Internal Medicine - H&P: Meds Calcium Acetate [Phos-LO] 1,334 mg PO TIDWM 05/12/15 [History] amLODIPine [Norvasc] 10 mg PO BID 05/12/15 [History] cloNIDine HCl [Clonidine HCl] 0.2 mg PO TID 05/12/15 [History] Sertraline [Zoloft] 100 mg PO HS 01/22/16 [History] Renal Vitamin [Renal Caps Softgel] 1 mg PO DAILY 03/22/16 [History] Aspirin Enteric Coated [Aspirin EC] 81 mg PO DAILY #30 tablet.dr 03/24/16 [Rx] Isosorbide DInitrate [Isordil] 20 mg PO TIDAC #90 tablet 03/24/16 [Rx] Lisinopril [Zestril] 40 mg PO DAILY tablet 03/24/16 [Rx] niCARdipine [Cardene] 20 mg PO TID #90 capsule 03/24/16 [Rx] Carvedilol [Coreg] 6.25 mg PO BID 05/07/16 [History] Diltiazem [Cardizem] 30 mg PO QID 05/07/16 [History] Oxycodone HCl 20 mg PO Q4HR PRN 10/25/16 [History] Labetalol HCl 300 mg PO BID 10/26/16 [History] hydrALAZINE [HydrALAZINE] 50 mg PO TID #0 10/26/16 [Rx] Oxymorphone HCl [Oxymorphone HCl ER] 20 mg PO Q12H 02/12/17 [History] 3 Allergy/AdvReac Type Severity Reaction Status Date / Time Cephalosporins Allergy Hives Verified 10/04/16 12:35 codeine Allergy Hives Verified 10/04/16 12:35 Sulfa (Sulfonamide Allergy Hives Verified 10/04/16 12:35 Antibiotics) morphine AdvReac Difficulty Verified 10/04/16 12:35 Breathing All Systems PM: A 10-system review of systems was performed and is negative for pertinent findings except as documented above in the HPI. Review of systems: No shortness of breath, no fevers. Other systems out of the 10 reviewed were negative - Constitutional Vitals: Temp Pulse Resp BP Pulse Ox 98.3 F 58 16 125/67 97 02/12/17 20:03 02/12/17 20:03 02/12/17 20:03 02/12/17 20:03 02/12/17 20:03 General appearance: Present: A&O X 3 - Head Head exam: Present: atraumatic, normocephalic - Eye Eye exam: Present: PERRL, conjuntiva pink, sclera anicteric Pupils: Present: PERRL - Neck Neck exam general surgery: Present: supple, trachea midline. Absent: lymphadenopathy - Respiratory Respiratory exam: Present: CTAB. Absent: accessory muscle use, rales, rhonchi, wheezes Additional comments: Left upper extremity AV fistula with good thrill - Cardiovascular Cardiovascular exam: Present: RRR, +S1, +S2. Absent: diastolic murmur, gallop, rubs, systolic murmur - GI/Abdominal GI/Abdominal exam: Present: normal bowel sounds, soft, no peritoneal signs. Absent: distended, tenderness - Extremities Exam Extremities exam: Present: warm, radial pulses palpable and symmetrical. Absent : calf tenderness, cyanotic, pedal edema - Neurological Exam Neurological exam: Present: CN II-XII intact, oriented X3, no focal deficits. Absent: pronater drift, facial droop, speech deficit - Skin Skin exam: Present: dry, intact Internal Med - H&P Results - Labs CBC & Chem 7: 02/12/17 15:30 02/12/17 15:30
[2017-02-12] MEDS ORDERED: OXYMORPHONE HCL 20 MG PO SCH (20:15)
[2017-02-12] MEDS: *HR* HYDROmorphone (PF) 1 MG/ML SYRINGE IVP PRN (21:06)
[2017-02-12] MEDS: amLODIPine 5 MG TABLET PO SCH (21:33)
[2017-02-12] MEDS: cloNIDine HCl 0.1 MG TABLET PO SCH (21:33)
[2017-02-12] MEDS: hydrALAZINE 25 MG TABLET PO SCH (21:33)
[2017-02-12] MEDS: niCARdipine 20 MG CAPSULE PO SCH (21:33)
[2017-02-12] MEDS ORDERED: *HR* OxyCODONE ER (12 HR) 20 MG TABLET PO SCH (21:45)
[2017-02-13 01:14] LABS: Chol/HDL Ratio 2.8 (0-4.9)
[2017-02-13] MEDS: *HR* HYDROmorphone (PF) 1 MG/ML SYRINGE IVP PRN ×5 (01:28→19:41)
[2017-02-13] MEDS: *HR* Heparin 5,000 UNIT/ML VIAL SQ SCH ×2 (05:20→21:59)
[2017-02-13] MEDS: Aspirin Enteric Coated 81 MG Tablet PO SCH (08:47)
[2017-02-13] MEDS: Calcium Acetate 667 MG CAPSULE PO SCH ×3 (08:47→16:26)
[2017-02-13] MEDS: amLODIPine 5 MG TABLET PO SCH ×2 (08:47→21:59)
[2017-02-13] MEDS: niCARdipine 20 MG CAPSULE PO SCH ×3 (08:47→21:59)
[2017-02-13] MEDS: Lisinopril 20 MG TABLET PO SCH (08:47)
[2017-02-13] MEDS: cloNIDine HCl 0.1 MG TABLET PO SCH ×3 (08:47→21:59)
[2017-02-13] MEDS: Renal Vitamin 1 MG CAPSULE PO SCH (08:47)
[2017-02-13] MEDS: hydrALAZINE 25 MG TABLET PO SCH ×3 (08:48→22:00)
[2017-02-13] MEDS: *HR* OxyCODONE ER (12 HR) 40 MG TABLET PO SCH ×2 (08:48→22:00)
--- NOTE | 2017-02-13 09:58 | Nephrology Consult Note ---
Date of Encounter: 02/13/17 Time of Encounter: 09:20 Assessment and Plan (1) ESRD (end stage renal disease) on dialysis Current Visit: Yes Status: Chronic Atypical chest pain. Cardiac work up started. May be related to possible central vein stenosis and/or versus developing AVF aneurysm. Will need fistulogram. Will monitor. HD tomorrow, keeping MWF schedule. (2) Atypical chest pain Current Visit: No Status: Chronic History of Present Illness - Reason for Consult end stage renal disease - History of Present Illness Mr. Mendez is a 41 year old male with ESRD who dialyzes at [place] [place]. Last dialysis on Tuesday. Other PMH-Failed renal transplant with subseqent removal, arthritis, CHF, recurrent pleural effusions, hypertension, pulmonary embolus, vascular surgery, anxiety, depression. Mr Mendez presented yesterday with left side chest pain, he points over subclavian area. He rated it 6/10 and states today pain is same and is constant. He denied increased shortness of breath. He denied any associated N/V. No diaphoresis. CXR showed no acute process. EKG showed new T-wave inversions. Chest pain workup was initiated. Assessment of AVF this morning , + bruit/thrill. Noted to be enlarged upward over subclavian area with noted vascular vessel congestion of left anterior chest and neck area. Mr. Mendez states this congestion and enlarging fistula vessel noted for past two weeks. Skin is not taut or shiny over AVF or surrounding areas. Past Med Surg Social Fam HX - Past Medical History Medical history: arthritis, CHF (Diastolic), dialysis (End-stage renal disease on hemodialysis, patient of Dr. 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, left approximately IV fistula with a stent placement, pleurodeses due to left pleural effusion) - Social History Smoking Status: Never smoker Smokeless Tobacco Status: No Alcohol use: none Drug use: none - Family History Father Living Status: Still Living Hx Family Cardiac Disorders: No Hx Family Respiratory Disorders: No Hx Family Cancer: No Hx Family GI Disorders: No Hx Family Endocrine Disorder: No Hx Family Neuromuscular Disorders: No Hx Family Neurologic Disorders: No Hx Family HEENT Disorders: No Hx Family Autoimmune Disorders: No Mother Adopted: No Living Status: Hx Family Cardiac Disorders: No Hx Family Respiratory Disorders: Yes Hx Family Cancer: No Hx Family GI Disorders: No Hx Family Endocrine Disorder: No Hx Family Neuromuscular Disorders: No Hx Family Neurologic Disorders: No Hx Family HEENT Disorders: No Hx Family Autoimmune Disorders: No Medications and Allergies Calcium Acetate [Phos-LO] 1,334 mg PO TIDWM 05/12/15 [History] amLODIPine [Norvasc] 10 mg PO BID 05/12/15 [History] cloNIDine HCl [Clonidine HCl] 0.2 mg PO TID 05/12/15 [History] Sertraline [Zoloft] 100 mg PO HS 01/22/16 [History] Renal Vitamin [Renal Caps Softgel] 1 mg PO DAILY 03/22/16 [History] Aspirin Enteric Coated [Aspirin EC] 81 mg PO DAILY #30 tablet. 03/24/16 [Rx] Isosorbide DInitrate [Isordil] 20 mg PO TIDAC #90 tablet 03/24/16 [Rx] Lisinopril [Zestril] 40 mg PO DAILY tablet 03/24/16 [Rx] niCARdipine [Cardene] 20 mg PO TID #90 capsule 03/24/16 [Rx] Carvedilol [Coreg] 6.25 mg PO BID 05/07/16 [History] Diltiazem [Cardizem] 30 mg PO QID 05/07/16 [History] Oxycodone HCl 20 mg PO Q4HR PRN 10/25/16 [History] Labetalol HCl 300 mg PO BID 10/26/16 [History] hydrALAZINE [HydrALAZINE] 50 mg PO TID #0 10/26/16 [Rx] Oxymorphone HCl [Oxymorphone HCl ER] 20 mg PO Q12H 02/12/17 [History] 3 Allergy/AdvReac Type Severity Reaction Status Date / Time Cephalosporins Allergy Hives Verified 10/04/16 12:35 codeine Allergy Hives Verified 10/04/16 12:35 Sulfa (Sulfonamide Allergy Hives Verified 10/04/16 12:35 Antibiotics) morphine AdvReac Difficulty Verified 10/04/16 12:35 Breathing Review of Systems All Systems: reviewed and no additional remarkable complaints except as stated Exam - Vital Signs Vital signs: Initial Vital Signs Temp Pulse Resp BP Pulse Ox 98 F 70 18 121/65 96 02/12/17 14:28 02/12/17 14:28 02/12/17 14:28 02/12/17 14:28 02/12/17 14:28 Vital Signs - Last 8 Hours Temp Pulse Resp BP Pulse Ox 02/13/17 07:51 97.9 F 58 17 129/71 95 02/13/17 05:03 98.0 F 61 16 114/51 95 Intake and Output 02/13/17 02/13/17 02/13/17 00:59 07:59 15:59 Intake Total 0 / 0 Output Total 0 / 0 Balance 0 / 0 Intake: Oral 0 / 0 Output: Urine 0 / 0 Other: Weight Patient Weight 02/13/17 22:59 Weight 63.5 kg - General Appearance General appearance: well-developed, well-nourished, appears started age EENT: mucous membranes moist Additional Comments: noted vascular vessel congestion of left anterior chest and neck area Respiratory: clear Cardiology: no edema, regular rate, regular rhythm - Dialysis Access Dialysis Vascular Access: Arteriovenous Fistula thrill: Yes bruit: Yes Additional Comments: + bruit/thrill. Noted to be enlarged upward over subclavian area with noted vascular vessel congestion of left anterior chest and neck area. Skin not taut or shiny. Gastrointestinal: normoactive bowel sounds, no tenderness Integumentary: warm and dry Neurologic: alert and oriented x3 Psychiatric: mood/affect appropriate, cooperative Results - Lab Results 02/12/17 15:30 02/12/17 15:30 Most recent lab results Calcium 8.4 mg/dL (8.6-10.8) L 02/12/17 15:30 Consult Discharge Plan - Plan Referrals: Starla Wolfe, [employer] [Primary Care Provider] -
--- NOTE | 2017-02-13 11:16 | Internal Med Progress Note ---
Date of Encounter: 02/13/17 Time of Encounter: 11:14 - Assessment and plan (1) Malignant hypertension Current Visit: Yes Status: Chronic Assessment and plan: Continue home meds (2) Atypical chest pain Current Visit: Yes Status: Acute Assessment and plan: ECHO-LVEF 70%. Normal LV chamber size and function. Moderate to severe left ventricular hypertrophy. Normal right ventricular structure and function. No WMA Anticipate d/c after HD a.m (3) ESRD (end stage renal disease) on dialysis Current Visit: Yes Status: Chronic Assessment and plan: HD as scheduled Continue home meds (4) Diastolic CHF Current Visit: Yes Status: Chronic Assessment and plan: No signs of exacerbation , continue home meds Qualifiers: Congestive heart failure chronicity: chronic Qualified Code(s): I50.32 - Chronic diastolic (congestive) heart failure - Subjective Interval history: 41 M with HTN, ESRD on HD, admitted for work up of chest/shoulder pain No new complains on eval Renal following for AVF revision and HD - Constitutional Vitals: Temp Pulse Resp BP Pulse Ox 97.9 F 58 17 129/71 95 02/13/17 07:51 02/13/17 07:51 02/13/17 07:51 02/13/17 07:51 02/13/17 07:51 General appearance: Present: A&O X 3, pleasant, no acute distress - Head Head exam: Present: atraumatic, normocephalic - Eye Eye exam: Present: PERRL, conjuntiva pink, sclera anicteric Pupils: Present: PERRL - Neck Neck exam general surgery: Present: supple, trachea midline. Absent: lymphadenopathy - Cardiovascular Cardiovascular exam: Present: +S1, +S2, systolic murmur Additional comments: Hyperacrive precordium - GI/Abdominal GI/Abdominal exam: Present: normal bowel sounds, soft, no peritoneal signs. Absent: distended, tenderness - Extremities Exam Extremities exam: Present: warm, radial pulses palpable and symmetrical. Absent : calf tenderness, cyanotic, pedal edema Additional comments: L AVF thrill+ - Neurological Exam Neurological exam: Present: alert, CN II-XII intact, oriented X3, no focal deficits. Absent: pronater drift, facial droop, speech deficit - Skin Skin exam: Present: dry, intact Internal Medicine: Result - Labs CBC & Chem 7: 02/12/17 15:30 02/12/17 15:30 Labs: Cardiac Enzymes 02/12/17 02/13/17 Range/Units 20:16 01:19 EST Troponin I 0.06 H* 0.05 H* (0-0.03) ng/mL - ABG Interpretation ABG results: PT/INR, D-dimer PT 12.9 Seconds (9.4-12.1) H 02/12/17 15:30 - Impressions Impressions Echocardiogram Limited Views 02/13/17 20:03 Impressions: LVEF 70%. Normal LV chamber size and function. Moderate to severe left ventricular hypertrophy. Normal right ventricular structure and function. Left Ventricular Wall Motion: Rest Echo Findings All wall segments showed normal motion. Findings: Study Quality * Technically adequate exam. ECG Findings * Normal sinus rhythm. Left Ventricle * LVEF 70%. * Normal LV chamber size and function. * Moderate to severe left ventricular hypertrophy. Right Ventricle * Normal right ventricular structure and function. Pericardium * There is a trivial pericardial effusion present. Right Atrium * Severely dilated right atrium. Left Atrium * Severely dilated left atrium. Consult Discharge Plan - Plan Referrals: Starla Wolfe, [employer] [Primary Care Provider] -
[2017-02-14] MEDS: *HR* HYDROmorphone (PF) 1 MG/ML SYRINGE IVP PRN ×3 (00:42→11:25)
[2017-02-14 03:44] LABS: Basophils # 0.1 K/mcL (0.0-0.2); Basophils % 1.1 %; Eosinophils # 0.2 K/mcL (0.0-0.6); Eosinophils % 4.4 %; Hematocrit 29.6 % (37.5-50.1); Hemoglobin 9.7 g/dL (12.9-16.9); Immature Granulocytes % 0.2 % (0-4); Lymphocytes # 1.1 K/mcL (0.6-4.6); Lymphocytes % 25.2 %; Mean Corpuscular HGB Conc 32.8 g/dL (31.6-35.5); Mean Corpuscular Hemoglobin 30.3 pg (28.0-33.3); Mean Corpuscular Volume 92.5 fL (83.0-100.0); Mean Platelet Volume 9.8 fL (9.4-12.4); Monocytes # 0.6 K/mcL (0.0-1.3); Monocytes % 12.4 %; Neutrophils # 2.6 K/mcL (1.6-8.9); Platelet Count 150 K/mcL (140-400); Red Cell Distribution Width 13.7 % (11.5-14.5); Segmented Neutrophils % 56.7 %
[2017-02-14 04:04] LABS: Calcium 8.3 mg/dL (8.6-10.8); Potassium 3.8 mEq/L (3.5-4.5)
[2017-02-14] MEDS: *HR* Heparin 5,000 UNIT/ML VIAL SQ SCH ×2 (06:07→21:23)
[2017-02-14] MEDS: Renal Vitamin 1 MG CAPSULE PO SCH (08:30)
[2017-02-14] MEDS: Aspirin Enteric Coated 81 MG Tablet PO SCH (08:30)
[2017-02-14] MEDS: Calcium Acetate 667 MG CAPSULE PO SCH ×3 (08:30→19:38)
--- NOTE | 2017-02-14 08:37 | Nephrology Progress Note ---
Date of Encounter: 02/14/17 Time of Encounter: 08:35 - Assessment and Plan (1) ESRD (end stage renal disease) on dialysis Current Visit: Yes Status: Chronic Patient will undergo dialysis today. 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 He has had multiple interventions in the past including angioplasty and stent placement. He also has had an interposition graft placed. His AV fistula is currently patent. Because of the new onset of shoulder pain and dilated veins on his chest as well as some aneurysmal dilatation of the AV fistula we will proceed with a fistulogram to investigate for recurrent central vein stenosis. Subjective Interval history: Patient continues to experience some left shoulder pain. He denies any shortness of breath. He denies any chest pain. Blood pressures a bit on the low side. He is scheduled for his usual dialysis today. Objective - Vital Signs Vital signs: Vital Signs Temp Pulse Resp BP Pulse Ox 02/14/17 07:45 98.1 F 57 17 106/48 96 02/14/17 04:22 97.5 F L 56 14 105/49 93 02/14/17 00:00 98.1 F 57 12 103/46 93 02/13/17 21:01 97.7 F 57 12 107/44 97 02/13/17 15:54 97.2 F L 52 18 105/46 97 02/13/17 11:23 98.2 F 54 17 107/45 95 Intake and Output 02/13/17 02/14/17 02/14/17 23:59 07:59 15:59 Intake Total 0 / 0 Output Total 0 / 0 0 / 0 Balance 0 / 0 0 / 0 Intake: Oral 0 / 0 Output: Urine 0 / 0 0 / 0 Other: Weight 64.3 kg Patient Weight 02/14/17 23:59 Weight 64.3 kg - General Appearance Exam: Patient is alert and oriented. He is in no acute distress. Lungs clear to auscultation. Heart regular rate and rhythm. Abdomen is benign. There is no peripheral edema. There is a functioning AV fistula in the left upper extremity. There is an interposition graft is well. Patient has some aneurysmal dilatations of the vein. He also has some dilated veins on his chest raising the possibility of central vein stenosis. - Lab 02/14/17 03:03 02/14/17 03:03 Most recent lab results Calcium 8.3 mg/dL (8.6-10.8) L 02/14/17 03:03 Consult Discharge Plan - Plan Referrals: Starla Wolfe, [facility] [Primary Care Provider] -
[2017-02-14] MEDS: amLODIPine 5 MG TABLET PO SCH ×2 (08:38→21:23)
[2017-02-14] MEDS ORDERED: 0.9 % Sodium Chloride 250 ML IVC PRN (08:38)
[2017-02-14] MEDS: cloNIDine HCl 0.1 MG TABLET PO SCH ×3 (08:38→21:22)
[2017-02-14] MEDS: niCARdipine 20 MG CAPSULE PO SCH ×3 (08:38→21:22)
[2017-02-14] MEDS: hydrALAZINE 25 MG TABLET PO SCH ×3 (08:38→21:23)
[2017-02-14] MEDS: Lisinopril 20 MG TABLET PO SCH (08:39)
[2017-02-14] MEDS: *HR* OxyCODONE ER (12 HR) 40 MG TABLET PO SCH ×2 (09:33→21:23)
--- NOTE | 2017-02-14 09:38 | Electrocardiograph Report ---
[place] [id number] Test Date: 2017-02-12 Pat Name: Yogesh Mendez Department: 102 Room: 2A Gender: M [employer] Dipper: Kyra : 1975 Requested By: Armando Martins Order Number: [id number] Reading MD: Chong Guadarrama DO Measurements Intervals Lequire Rate: 67 P: 35 GA: 173 QRS: 1 QRSD: 94 T: 120 QT: 458 QTc: 473 Interpretive Statements SINUS RHYTHM LEFT ATRIAL ENLARGEMENT LEFT VENTRICULAR HYPERTROPHY AND ST-T CHANGE Electronically Signed On 02-14-2017 9:37:32 EST by Chong Guadarrama DO
[2017-02-14 09:44] LABS: Hepatitis A Antibody IgM Nonreactive (Nonreactive)
[2017-02-14] MEDS ORDERED: Lidocaine -MPF 1% 2 ML VIAL INFILT ONE (10:30)
--- NOTE | 2017-02-14 10:36 | Internal Med Progress Note ---
Date of Encounter: 02/14/17 Time of Encounter: 10:10 - Assessment and plan (1) Malignant hypertension Current Visit: Yes Status: Chronic Assessment and plan: Continue home meds (2) Atypical chest pain Current Visit: Yes Status: Acute Assessment and plan: ECHO-LVEF 70%. Normal LV chamber size and function. Moderate to severe left ventricular hypertrophy. Normal right ventricular structure and function. No WMA Anticipate d/c after HD and fistulogram (3) ESRD (end stage renal disease) on dialysis Current Visit: Yes Status: Chronic Assessment and plan: HD as scheduled Continue home meds (4) Diastolic CHF Current Visit: Yes Status: Chronic Assessment and plan: No signs of exacerbation , continue home meds Qualifiers: Congestive heart failure chronicity: chronic Qualified Code(s): I50.32 - Chronic diastolic (congestive) heart failure - Subjective Interval history: 41 M with HTN, ESRD on HD, admitted for work up of chest/shoulder pain No new complains on eval Renal following for HD, consulted vascular for fistulogram - Constitutional Vitals: Temp Pulse Resp BP Pulse Ox 98.1 F 57 17 106/48 96 02/14/17 07:45 02/14/17 07:45 02/14/17 07:45 02/14/17 09:33 02/14/17 07:45 General appearance: Present: A&O X 3, pleasant, no acute distress - Head Head exam: Present: atraumatic, normocephalic - Eye Eye exam: Present: PERRL, conjuntiva pink, sclera anicteric Pupils: Present: PERRL - Neck Neck exam general surgery: Present: supple, trachea midline. Absent: lymphadenopathy - Respiratory Respiratory exam: Present: CTAB. Absent: accessory muscle use, rales, rhonchi, wheezes - Cardiovascular Cardiovascular exam: Present: RRR, +S1, +S2. Absent: diastolic murmur, gallop, rubs, systolic murmur - GI/Abdominal GI/Abdominal exam: Present: normal bowel sounds, soft, no peritoneal signs. Absent: distended, tenderness - Extremities Exam Extremities exam: Present: warm, radial pulses palpable and symmetrical. Absent : calf tenderness, cyanotic, pedal edema Additional comments: Left arm AVF - Neurological Exam Neurological exam: Present: alert, CN II-XII intact, oriented X3, no focal deficits. Absent: pronater drift, facial droop, speech deficit - Skin Skin exam: Present: dry, intact Internal Medicine: Result - Labs CBC & Chem 7: 02/14/17 03:03 02/14/17 03:03 Labs: Short CBC 02/14/17 Range/Units 03:03 WBC 4.5 (4.3-11.1) K/mcL Hgb 9.7 L (12.9-16.9) g/dL Hct 29.6 L (37.5-50.1) % Plt Count 150 (140-400) K/mcL Neutrophils # 2.6 (1.6-8.9) K/mcL BMP 02/14/17 03:03 Sodium 138 Potassium 3.8 Chloride 99 Carbon Dioxide 26 BUN 48 H D Creatinine 8.88 H Glucose 90 Calcium 8.3 L - ABG Interpretation ABG results: PT/INR, D-dimer PT 12.9 Seconds (9.4-12.1) H 02/12/17 15:30 - Impressions Impressions Echocardiogram Limited Views 02/13/17 20:03 Impressions: LVEF 70%. Normal LV chamber size and function. Moderate to severe left ventricular hypertrophy. Normal right ventricular structure and function. Left Ventricular Wall Motion: Rest Echo Findings All wall segments showed normal motion. Findings: Study Quality * Technically adequate exam. ECG Findings * Normal sinus rhythm. Left Ventricle * LVEF 70%. * Normal LV chamber size and function. * Moderate to severe left ventricular hypertrophy. Right Ventricle * Normal right ventricular structure and function. Pericardium * There is a trivial pericardial effusion present. Right Atrium * Severely dilated right atrium. Left Atrium * Severely dilated left atrium. Consult Discharge Plan - Plan Referrals: Starla Wolfe, [employer] [Primary Care Provider] -
[2017-02-14] MEDS ORDERED: 0.9 % Sodium Chloride 2,000 ML ONE (10:50)
[2017-02-14 11:01] LABS: Hepatitis B Surface Antibody 1.65 mIU/mL; Hepatitis B Surface Antigen Nonreactive (Nonreactive)
[2017-02-14] MEDS: *HR* OxyCODONE Immed Rel 15 MG TABLET PO PRN (16:51)
[2017-02-15] MEDS: *HR* OxyCODONE Immed Rel 15 MG TABLET PO PRN ×3 (02:32→18:15)
[2017-02-15] MEDS: *HR* Heparin 5,000 UNIT/ML VIAL SQ SCH ×2 (05:46→17:33)
[2017-02-15] MEDS ORDERED: 0.9 % Sodium Chloride 500 ML ONE ×2 (07:45→08:36)
[2017-02-15] MEDS ORDERED: Heparin 1,000 UNITS/500 mL NS 500 ML ONE (07:45)
[2017-02-15] MEDS ORDERED: *HR* Midazolam HCl 2 MG/2 ML VIAL IVP ONE (08:24)
[2017-02-15] MEDS ORDERED: *HR* FentaNYL (PF) 100 MCG/2 ML VIAL IVP ONE (08:24)
--- NOTE | 2017-02-15 08:25 | Pre-Sedation Evaluation ---
Pre-sedation evaluation - Pre-sedation checklist Date of procedure: 02/15/17 Procedure: fistulagram with possible intervention Recent Vitals: Last Vital Signs Temp 98.2 F 02/15/17 03:39 Pulse 64 02/15/17 03:39 Resp 18 02/15/17 03:39 BP 123/55 02/15/17 03:39 Pulse Ox 94 02/15/17 03:39 H&P (including ROS) documented in medical record: Yes Previous reaction to sedatives/anesthetics: No Dietary Status: NPO after Midnight Airway Assessment: Patient can open mouth completely, TMJ function normal, Micrognathia (under-bite, receding chin) absent, Neck with adequate range of motion Dentition: full dentition Possible difficult airway: No ASA Classification *see protocol: CLASS II-Mild systemic disease Plan of Care: Pt appropriate candidate for procedure/moderate/conscious sedation , Risks/benefits of procedure/sedation discussed w/ patient/family, If not NPO; Risk of intake outweiged by necessity to perform procedure
--- NOTE | 2017-02-15 09:24 | IR Procedure Note ---
Date of procedure: 02/15/17 Consent Obtained: Written consent Timeout: Correct patient and procedure verified, Correct site verified, Time out performed, Skin prep completed Indications: Fistula, pain Procedure Performed: fistulogram, venogram Site/Technique: left arm Results/Findings: central veins are patent with no stenosis or collateral. Estimated blood loss (cc): 2 Complications: None; Tolerated procedure well Post Procedure Treatment Plan: dc to floor
[2017-02-15] MEDS: cloNIDine HCl 0.1 MG TABLET PO SCH ×2 (10:55→14:06)
[2017-02-15] MEDS: niCARdipine 20 MG CAPSULE PO SCH ×2 (10:55→14:04)
[2017-02-15] MEDS: Renal Vitamin 1 MG CAPSULE PO SCH (10:55)
[2017-02-15] MEDS: Lisinopril 20 MG TABLET PO SCH (10:55)
[2017-02-15] MEDS: Aspirin Enteric Coated 81 MG Tablet PO SCH (10:56)
[2017-02-15] MEDS: amLODIPine 5 MG TABLET PO SCH (10:56)
[2017-02-15] MEDS: *HR* OxyCODONE ER (12 HR) 40 MG TABLET PO SCH (10:56)
[2017-02-15] MEDS: hydrALAZINE 25 MG TABLET PO SCH (10:56)
[2017-02-15] MEDS: Calcium Acetate 667 MG CAPSULE PO SCH ×3 (11:35→17:33)
[2017-02-15 15:09] VITALS: BP 108/61
--- NOTE | 2017-02-15 17:31 | Discharge Summary ---
Date of Encounter: 02/15/17 Time of Encounter: 17:28 - Discharge Diagnosis (1) Chest pain Priority: Primary Status: Chronic Qualifiers: Chest pain type: unspecified Qualified Code(s): R07.9 - Chest pain, unspecified (2) Hypertension Priority: Secondary Status: Chronic Qualifiers: Hypertension type: unspecified secondary hypertension Qualified Code(s): I15.9 - Secondary hypertension, unspecified; I15 - Secondary hypertension (3) ESRD (end stage renal disease) Priority: Secondary Status: Acute - Discharge Medications Prescriptions: Nitroglycerin 0.4 mg SL Q5MIN PRN #20 tab.subl PRN Reason: Chest Pain Home Medications: Calcium Acetate [Phos-LO] 1,334 mg PO TIDWM 05/12/15 [History] amLODIPine [Norvasc] 10 mg PO BID 05/12/15 [History] cloNIDine HCl [Clonidine HCl] 0.2 mg PO TID 05/12/15 [History] Sertraline [Zoloft] 100 mg PO HS 01/22/16 [History] Renal Vitamin [Renal Caps Softgel] 1 mg PO DAILY 03/22/16 [History] Aspirin Enteric Coated [Aspirin EC] 81 mg PO DAILY #30 tablet. 03/24/16 [Rx] Isosorbide DInitrate [Isordil] 20 mg PO TIDAC #90 tablet 03/24/16 [Rx] Lisinopril [Zestril] 40 mg PO DAILY tablet 03/24/16 [Rx] niCARdipine [Cardene] 20 mg PO TID #90 capsule 03/24/16 [Rx] Carvedilol [Coreg] 6.25 mg PO BID 05/07/16 [History] Diltiazem [Cardizem] 30 mg PO QID 05/07/16 [History] Oxycodone HCl 20 mg PO Q4HR PRN 10/25/16 [History] Labetalol HCl 300 mg PO BID 10/26/16 [History] hydrALAZINE [HydrALAZINE] 50 mg PO TID #0 10/26/16 [Rx] Oxymorphone HCl [Oxymorphone HCl ER] 20 mg PO Q12H 02/12/17 [History] Darbepoetin [Aranesp] 60 mcg SQ QWEEK syringe 02/15/17 [Rx] Nitroglycerin 0.4 mg SL Q5MIN PRN #20 tab.subl 02/15/17 [Rx] Allergies/Adverse Reactions: 3 Allergy/AdvReac Type Severity Reaction Status Date / Time Cephalosporins Allergy Hives Verified 10/04/16 12:35 codeine Allergy Hives Verified 10/04/16 12:35 Sulfa (Sulfonamide Allergy Hives Verified 10/04/16 12:35 Antibiotics) morphine AdvReac Difficulty Verified 10/04/16 12:35 Breathing Procedures/tests Complete & Pending: Procedures Performed prior 72 hours Category Date Time Status IR angio arteriovenous shunt [IR] Routine IR 02/15/17 Completed IR us guide needle place [IR] Routine IR 02/15/17 Completed Date of admission: 02/14/17 15:30 Primary care physician: Starla Wolfe CNP Discharging clinician: Pam Armstrong Anticipated date of discharge: 02/15/17 - Patient Status Disposition: Home, Self-Care Condition: Good Overall status at discharge: patient is progressing back to baseline - Discharge Instructions Instructions: Chest Pain (DC) Follow Up With: Starla Wolfe CNP [Primary Care Provider] - - Diet and Activity Activity: resume usual activities as tolerated Diet: advance to your usual diet Hospital course: Mr. Mendez is a 41 year old male admitted for chest pain. Apparently 2 years ago he had a normal cardiac catheter in 6 months ago he had a normal stress test. Chest pain was going and left arm and neck and there was a concern if his AV fistula is working therefore he had a fistulogram which showed patent fistula. In echocardiogram was done which showed EF 70% no wall motion abnormality and normal systolic function. Patient's troponin was mildly elevated in the range of 0.0 5.06 however there have been noted elevated since October. He is referred to cardiology as outpatient and he is advised to take Aspirin and beta vianca Nitrostat when necessary. Low-dose Imdur added. - Time Spent with Patient Total time spent providing and/or coordinating discharge services: Greater than 30 minutes - Constitutional Vitals: Temp Pulse Resp BP Pulse Ox 97.6 F 56 16 108/61 96 02/15/17 15:07 02/15/17 15:07 02/15/17 15:07 02/15/17 15:07 02/15/17 15:07 General appearance: Present: A&O X 3, pleasant, no acute distress - Head Head exam: Present: atraumatic, normocephalic - Eye Eye exam: Present: PERRL, conjuntiva pink, sclera anicteric Pupils: Present: PERRL - Neck Neck exam general surgery: Present: supple, trachea midline. Absent: lymphadenopathy - Respiratory Respiratory exam: Present: CTAB. Absent: accessory muscle use, rales, rhonchi, wheezes - Cardiovascular Cardiovascular exam: Present: RRR, +S1, +S2. Absent: diastolic murmur, gallop, rubs, systolic murmur - GI/Abdominal GI/Abdominal exam: Present: normal bowel sounds, soft, no peritoneal signs. Absent: distended, tenderness - Extremities Exam Extremities exam: Present: warm, radial pulses palpable and symmetrical. Absent : calf tenderness, cyanotic, pedal edema - Neurological Exam Neurological exam: Present: CN II-XII intact, oriented X3, no focal deficits. Absent: pronater drift, facial droop, speech deficit - Skin Skin exam: Present: dry, intact
== END 2017-02-15 18:36 | disposition home or self-care (01) | DRG 313 ==
LOC: 2ANU 14:25 → EMEROO 14:25 → 2ANU 17:22
PROVIDERS: ADMIT Hospitalist; ATTEND Internal Medicine

== ENCOUNTER 2017-02-20 13:03 | Inpatient (IN) ==
[2017-02-20 13:58] LABS: Basophils # 0.1 K/mcL (0.0-0.2); Basophils % 0.9 %; Eosinophils # 0.2 K/mcL (0.0-0.6); Eosinophils % 3.3 %; Hemoglobin 11.6 g/dL (12.9-16.9); Immature Granulocytes % 0.2 % (0-4); Immature Platelets 2.2 % (1.1-6.1); Lymphocytes # 0.7 K/mcL (0.6-4.6); Lymphocytes % 13.1 %; Mean Corpuscular HGB Conc 33.1 g/dL (31.6-35.5); Mean Corpuscular Hemoglobin 30.7 pg (28.0-33.3); Mean Corpuscular Volume 92.6 fL (83.0-100.0); Mean Platelet Volume 9.4 fL (9.4-12.4); Monocytes # 0.6 K/mcL (0.0-1.3); Monocytes % 10.1 %; Neutrophils # 3.9 K/mcL (1.6-8.9); Platelet Count 197 K/mcL (140-400); Red Blood Count 3.78 M/mcL (4.19-5.50); Red Cell Distribution Width 14.4 % (11.5-14.5); Segmented Neutrophils % 72.4 %
[2017-02-20 14:11] LABS: Albumin 3.6 g/dL (3.5-5.0); Albumin/Globulin Ratio 1.1 (1.1-2.2); Bilirubin,Direct 0.2 mg/dL (0.0-0.5); Bilirubin,Indirect 0.2 mg/dL (0.0-1.2); Bilirubin,Total 0.4 mg/dL (0.2-1.2); Calcium 8.4 mg/dL (8.6-10.8); Globulin 3.3 g/dL (2.4-3.5); Total Protein 6.9 g/dL (6.0-8.3)
--- NOTE | 2017-02-20 14:34 | Emergency Department Note ---
Disposition Clinical Impression: Pleural effusion, ESRD (end stage renal disease) on dialysis Ascites Qualifiers: Ascites type: other type Qualified Code(s): R18.8 - Other ascites Dyspnea Qualifiers: Dyspnea type: other forms of dyspnea Qualified Code(s): R06.09 - Other forms of dyspnea Disposition: Admitted As Inpatient Condition: Good Time of Disposition: 15:23 Abdominal Pain HPI - General Chief Complaint: ED Abdominal Pain Stated Complaint: CORY/Back/Abd Pain Time Seen by Provider: 02/20/17 13:56 Source: patient Mode of arrival: ambulatory Limitations: no limitations Nursing Notes Reviewed: Yes Vital Signs Reviewed: Yes - History of Present Illness HPI Narrative: 41-year-old with end-stage renal disease on dialysis who missed dialysis on Tuesday, 2 days ago, due to being in the emergency department complaining of abdominal swelling and abdominal pain. The patient states he has never missed a dialysis before surgery is unsure if this feels like this previous in the past. The patient is complaining of generalized abdominal pain but primarily points to his epigastric region. The patient denies any other nausea, vomiting , diarrhea, hematochezia, melena, hematemesis. The patient states his pain is under control at this time. The patient denies any previous abdominal pain like this in the past. The patient was seen in the emergency department 2 days ago for concern for graft injury which there was no acute findings. The patient did not receive dialysis as mentioned above. The patient sees Dr. Stern for dialysis but has not had dialysis since Tuesday, 5 days ago. Pt Subjective Complaint: abdominal pain Onset (ago): day(s) (1) Consistency: constant, Worsening Location: diffuse Pain Severity: moderate Pain Scale: 6 Quality: stabbing, aching Radiation: none Migration to: no migration Improves with: nothing Worsens with: nothing Associated symptoms: Reports: denies other symptoms Treatments prior to arrival: none - Related Data Home Medications Medication Instructions Recorded Confirmed Calcium Acetate [Phos-LO] 1,334 mg PO TIDWM 05/12/15 02/20/17 amLODIPine [Norvasc] 10 mg PO BID 05/12/15 02/20/17 cloNIDine HCl [Clonidine HCl] 0.2 mg PO TID 05/12/15 02/20/17 Sertraline [Zoloft] 100 mg PO HS 01/22/16 02/20/17 Renal Vitamin [Renal Caps Softgel] 1 mg PO DAILY 03/22/16 02/20/17 Carvedilol [Coreg] 25 mg PO BID 05/07/16 02/21/17 Diltiazem [Cardizem] 30 mg PO QID 05/07/16 02/20/17 Oxycodone HCl 20 mg PO Q4HR PRN 10/25/16 02/20/17 Oxymorphone HCl [Oxymorphone HCl 20 mg PO Q12H 02/12/17 02/20/17 ER] Previous Rx's Medication Instructions Recorded Aspirin Enteric Coated [Aspirin EC] 81 mg PO DAILY #30 tablet. 03/24/16 Isosorbide DInitrate [Isordil] 20 mg PO TIDAC #90 tablet 03/24/16 Lisinopril [Zestril] 40 mg PO DAILY tablet 03/24/16 niCARdipine [Cardene] 20 mg PO TID #90 capsule 03/24/16 hydrALAZINE [HydrALAZINE] 50 mg PO TID #0 10/26/16 Darbepoetin [Aranesp] 60 mcg SQ QWEEK syringe 02/15/17 Nitroglycerin 0.4 mg SL Q5MIN PRN #20 tab.subl 02/15/17 Allergies Allergy/AdvReac Type Severity Reaction Status Date / Time Cephalosporins Allergy Hives Verified 02/18/17 10:39 codeine Allergy Hives Verified 02/18/17 10:39 Sulfa (Sulfonamide Allergy Hives Verified 02/18/17 10:39 Antibiotics) morphine AdvReac Difficulty Verified 02/18/17 10:39 Breathing All systems ED: reviewed and negative except as stated. Constitutional: Reports: weakness. Denies: fever, chills ENT ED: Denies: congestion Cardiovascular: Denies: chest pain, dyspnea on exertion Respiratory: Denies: cough, dyspnea, wheezes Gastrointestinal: Reports: abdominal pain. Denies: nausea, vomiting, diarrhea, constipation, hematemesis, melena, hematochezia Musculoskeletal: Denies: back pain, neck pain, arthralgia, myalgia Integumentary: Denies: rash Neurological: Denies: numbness, paresthesias Abdominal Pain PMH - Past Medical History Medical history: Reports: arthritis, CHF, dialysis, hypertension, pulmonary embolus, renal disease Male Surgical History: Reports: appendectomy, herniorrhaphy Psychiatric history: Reports: anxiety, depression - Social History Smoking status: Never smoker Alcohol use: Reports: none Drug use: Reports: none Physical Exam - General Limitations: no limitations General appearance: alert, in no apparent distress - Head Head exam: atraumatic, normocephalic, normal inspection - Eye Eye exam: Present: normal appearance, PERRL, EOMI - ENT ENT exam: normal exam, normal oropharynx, mucous membranes moist - Neck Neck exam: Present: normal inspection, full ROM, trachea midline - Chest Chest inspection: Present: normal inspection, symmetric chest wall rise - Respiratory Respiratory exam: Present: normal lung sounds bilaterally - Cardiovascular Cardiovascular exam: Present: regular rate, normal rhythm, normal heart sounds - Abdominal Exam Abdominal exam: Present: tenderness (Diffuse, worse in epigastric region), distention. Absent: guarding, rebound, rigidity, heel tap sign, Soria's sign, Rovsing's sign Abdominal tenderness: Present: epigastrium, diffuse, moderate - Extremities Exam Extremities exam: Present: full ROM, other (Patient has a palpable thrill on graft of left upper extremity.). Absent: tenderness, pedal edema - Neurological Exam Neurological exam: Present: alert, oriented X3 Course - Consultations Consultation #1: We spoke to Dr. Stern who recommended we admit the patient to the hospitalist. We will admit the patient at this time and the patient will likely receive dialysis tomorrow as well as likely paracentesis for his ascites. Time: 15:15 Vital Signs Temperature 98.2 F 02/20/17 13:38 Pulse Rate 73 02/20/17 13:38 Respiratory Rate 16 02/20/17 13:38 Blood Pressure 146/80 02/20/17 13:38 O2 Sat by Pulse Oximetry 97 02/20/17 13:38 Temperature 97.9 F 02/21/17 13:10 Pulse Rate 58 02/21/17 07:32 Respiratory Rate 14 02/21/17 13:10 Blood Pressure 132/78 02/21/17 13:10 O2 Sat by Pulse Oximetry 96 02/21/17 07:32 Oxygen Delivery Oxygen Delivery Room Air Abdominal Pain - MDM Narrative Medical decision making narrative: Patient's lab work is fairly benign. The patient does have a mildly elevated lipase at this time which is likely reactionary associated with the patient's ascites. Given the patient's extensive ascites, the drawer in jacquard loom recommended that the patient be admitted to the hospitalist with likely paracentesis tomorrow. The patient does have bilateral pleural effusions noted on CT scan. The patient's vital signs are stable at this time but given the patient's findings on CT scan it is recommended from the drawer in jacquard loom that we admit the patient to the hospitalist at this time. After consideration of this, we will admit the patient to the hospitalist. Patient made aware and agrees to plan. Accepted by Dr. guevara. - Lab Data Lab results reviewed: Yes I reviewed the patient's lab results. Result diagrams: 02/21/17 02:33 02/21/17 02:33 Lab Results 02/20/17 02/20/17 02/20/17 Range/Units 13:51 13:51 13:51 WBC 5.4 (4.3-11.1) K/mcL RBC 3.78 L (4.19-5.50) M/mcL Hgb 11.6 L D (12.9-16.9) g/dL Hct 35.0 L (37.5-50.1) % MCV 92.6 (83.0-100.0) fL MCH 30.7 (28.0-33.3) pg MCHC 33.1 (31.6-35.5) g/dL RDW 14.4 (11.5-14.5) % Plt Count 197 (140-400) K/mcL MPV 9.4 (9.4-12.4) fL Immature Gran % 0.2 (0-4) % Seg Neutrophils % 72.4 % Lymphocytes % 13.1 % Monocytes % 10.1 % Eosinophils % 3.3 % Basophils % 0.9 % Neutrophils # 3.9 (1.6-8.9) K/mcL Lymphocytes # 0.7 (0.6-4.6) K/mcL Monocytes # 0.6 (0.0-1.3) K/mcL Eosinophils # 0.2 (0.0-0.6) K/mcL Basophils # 0.1 (0.0-0.2) K/mcL Immature Plt Fraction 2.2 (1.1-6.1) % Sodium 136 (136-145) mEq/L Potassium 5.0 H (3.5-4.5) mEq/L Chloride 99 (98-109) mEq/L Carbon Dioxide 19 (19-29) mEq/L BUN 66 H (8-26) mg/dL Creatinine 11.71 H (0.72-1.25) mg/dL Est GFR ( Amer) 6 L (> 60) Est GFR (Non-Af Amer) 5 L (> 60) BUN/Creatinine Ratio 6 (6-26) Glucose 128 H (70-99) mg/dL Calculated Osmolality 303 H (280-300) Calcium 8.4 L (8.6-10.8) mg/dL Total Bilirubin 0.4 (0.2-1.2) mg/dL Direct Bilirubin 0.2 (0.0-0.5) mg/dL Indirect Bilirubin 0.2 (0.0-1.2) mg/dL AST 20 (5-34) Units/L ALT 10 (0-55) Units/L Alkaline Phosphatase 69 (38-126) Units/L Troponin I 0.03 (0-0.03) ng/mL Serum Total Protein 6.9 (6.0-8.3) g/dL Albumin 3.6 (3.5-5.0) g/dL Globulin 3.3 (2.4-3.5) g/dL Albumin/Globulin Ratio 1.1 (1.1-2.2) Amylase 87 (25-125) Units/L Lipase 91 H (8-78) Units/L - Radiology Data Radiology results reviewed: Yes I reviewed the patient's radiology results. - EKG Data EKG attestation: Yes I reviewed and interpreted this EKG. EKG results narrative: Rate 65 bpm. NJ interval 175 segs. QTc 462 ms. Normal axis. Normal sinus rhythm. No ST elevation or ST depression noted. EKG simmered appears to EKG from 02/18/2017. No acute changes noted. Attestation Statement - Attestation Attestation: I examined this patient and my medical decision-making was reviewed with the Resident Physician, Dr. Oh. I agree with the documented findings, disposition and treatment plan as described except to the extent set forth below. Pt is a 41 yo male, hx ESRD on HD, who missed HD on [place], 2 d ago, and since that time has been c/o epigastric abd pain/bloating and SOB. Pt with stable VS neri rrival, in NAD on arrival. No hypoxia. I agree with pt's PE findings as documented. Pt with ascites and small bilateral pleural effusions on imaging studies. D/W Dr. Jackson, Nephrology, who recommends admission for further evaluation/ treatment.
[2017-02-20] MEDS ORDERED: *HR* HYDROmorphone (PF) 1 MG/ML SYRINGE IVP ONE (15:23)
[2017-02-20] MEDS ORDERED: Naloxone 0.4 MG/ML INJ IVP PRN (21:07)
[2017-02-20] MEDS ORDERED: Ondansetron 4 MG/2 ML VIAL IVP PRN (21:07)
[2017-02-20] MEDS ORDERED: Nitroglycerin 0.4 MG TAB.SUBL SL PRN (21:17)
--- NOTE | 2017-02-20 21:29 | Internal Med History&Physical ---
Date of Encounter: 02/20/17 Time of Encounter: 20:00 Assessment and Plan (1) Abdominal pain Current visit: Yes Status: Acute Acute abdominal pain d/t current ascites complicated by need for dialysis. CT of the abdomen/pelvis today is moderate abdominal and pelvic ascites, soft tissue anasarca, and small bilateral pleural effusions. Mural thickening of small and large bowel is likely reactive secondary to ascites. While less favored, enteritis cannot be excluded in the appropriate clinical setting. Pt. is currently afebrile and WBC WNL. Pt. to be dialyzed tomorrow and have paracentesis procedure for ascites as well. Pt. to be monitored closely. Pt. is at igh risk for further morbidity d/t current need for dialysis, ascites, sx, and hx. Inpatient. Qualifiers: Abdominal location: generalized Qualified Code(s): R10.84 - Generalized abdominal pain (2) Ascites Current visit: Yes Status: Acute Acute ascites. Lipase 91 on admission. Hepatic panel ordered. Consult for IR ordered for paracentesis tomorrow. Pt. states he has had previous paracentesis procedures. 1.0L daily fluid restriction. Continue pts. pain medications for current pain. NPO at midnight. Qualifiers: Ascites type: other type Qualified Code(s): R18.8 - Other ascites (3) ESRD (end stage renal disease) on dialysis Current visit: Yes Status: Chronic Hx of chronic ESRD requiring dialysis. 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 Patient reports he is dialyzed MWF with Dr. Garcia missed his Tuesday appointment due to being in the hospital. Patient states he has not been dialyzed since Tuesday. Consult placed and discussed with Dr. Garcia will see patient in the a.m. and schedule inpatient dialysis. Renal diet. Continue pts. renal caps. (4) HTN (hypertension) Current visit: Yes Status: Chronic Hx of chronic HTN. Monitor pt. and VS. Continue patient's lisinopril, labetalol , isosorbide, hydralazine, Cardizem, Coreg, Norvasc and Cardene. Qualifiers: Hypertension type: essential hypertension Qualified Code(s): I10 - Essential (primary) hypertension (5) Anxiety and depression Current visit: Yes Status: Chronic Hx of chronic anxiety and depression. Continue patient's Zoloft and clonidine. (6) DVT prophylaxis Current visit: Yes Status: Acute Bilateral SCDs on LEs for DVT prophylaxis. Pharmacologic prophylaxis avoided d/ t paracentesis in the a.m. Internal Medicine - H&P: HPI Chief complaint: Abdominal pain/Bilateral flank pain Admitted From: Emergency Dept Plans for Post Hospital Care: Home History of present illness: Mr. Mendez is a 41 year old male with medical hx of arthritis, CHF, end-stage renal disease requiring dialysis MWF, hypertension, hx of PE, and kidney transplant presents from the ED with cheif complaint of abdominal pain, increased fluid build-up, and bilateral flank pain since yesterday. Pt. reports he is dialyzed MWF, but missed his Tuesday appointment d/t being in the hospital. Pt. states he has not been dialyzed since Tuesday. Pt. denies chest pain, palpitations, cough, SOB, recent illness, fever, chills, nausea, vomiting , changes in vision, unusual bleeding, headache, diarrhea, constipation, numbness, tingling, dizziness, lightheadedness, pre-syncope, or syncope. Past Med Surg Social Fam HX - Past Medical History Source: patient, old records reviewed Medical history: arthritis, CHF, dialysis (MWF), hypertension, pulmonary embolus (Three years ago), renal disease Psychiatric history: anxiety, depression - Past Surgical History Surgical History: orthopedic, other (Rt. 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, left approximately IV fistula with a stent placement, pleurodeses due to left pleural effusion, sinus surgery) - Social History Smoking Status: Never smoker Smokeless Tobacco Status: No Alcohol use: none Drug use: none Current living situation: Home Activity Level: Independent ambulation Recent Out of Country Travel Within the Last 8 Weeks: No Exposure or Possible Exposure to Illness During Travel: No - Family History Father Race: Family Member Ethnicity: Non- Living Status: Still Living Hx Family Psychosocial Disorders: Yes (Anxiety) Mother Adopted: No Race: Family Member Ethnicity: Non- Living Status: Age at : 71 Cause of : COPD Hx Family Respiratory Disorders: Yes (COPD, emphysema) Brother Race: Family Member Ethnicity: Non- Living Status: Still Living Hx Family Medical Disorders: No Sister Race: Family Member Ethnicity: Non- Living Status: Still Living Hx Family Medical Disorders: No Internal Medicine - H&P: Meds Calcium Acetate [Phos-LO] 1,334 mg PO TIDWM 05/12/15 [History] amLODIPine [Norvasc] 10 mg PO BID 05/12/15 [History] cloNIDine HCl [Clonidine HCl] 0.2 mg PO TID 05/12/15 [History] Sertraline [Zoloft] 100 mg PO HS 01/22/16 [History] Renal Vitamin [Renal Caps Softgel] 1 mg PO DAILY 03/22/16 [History] Aspirin Enteric Coated [Aspirin EC] 81 mg PO DAILY #30 tablet. 03/24/16 [Rx] Isosorbide DInitrate [Isordil] 20 mg PO TIDAC #90 tablet 03/24/16 [Rx] Lisinopril [Zestril] 40 mg PO DAILY tablet 03/24/16 [Rx] niCARdipine [Cardene] 20 mg PO TID #90 capsule 03/24/16 [Rx] Carvedilol [Coreg] 6.25 mg PO BID 05/07/16 [History] Diltiazem [Cardizem] 30 mg PO QID 05/07/16 [History] Oxycodone HCl 20 mg PO Q4HR PRN 10/25/16 [History] Labetalol HCl 300 mg PO BID 10/26/16 [History] hydrALAZINE [HydrALAZINE] 50 mg PO TID #0 10/26/16 [Rx] Oxymorphone HCl [Oxymorphone HCl ER] 20 mg PO Q12H 02/12/17 [History] Darbepoetin [Aranesp] 60 mcg SQ QWEEK syringe 02/15/17 [Rx] Nitroglycerin 0.4 mg SL Q5MIN PRN #20 tab.subl 02/15/17 [Rx] 3 Allergy/AdvReac Type Severity Reaction Status Date / Time Cephalosporins Allergy Hives Verified 02/18/17 10:39 codeine Allergy Hives Verified 02/18/17 10:39 Sulfa (Sulfonamide Allergy Hives Verified 02/18/17 10:39 Antibiotics) morphine AdvReac Difficulty Verified 02/18/17 10:39 Breathing All Systems PM: A 10-system review of systems was performed and is negative for pertinent findings except as documented above in the HPI. - Constitutional Constitutional: no chills, no fever(s), no night sweats - EENT Eyes: no change in vision, no discharge, no pain, no photophobia Ears: no ear discharge, no ear pain, no tinnitus Nose, mouth and throat: no dysphagia, no nasal discharge, no neck pain, no sore throat - Breasts Breasts: as per HPI - Cardiovascular Cardiovascular ROS IM: no chest pain, no diaphoresis, no dyspnea, no lightheadedness, no palpitations, no syncope - Respiratory Respiratory: no cough, no dyspnea, no wheezing, no excessive phlegm production - Gastrointestinal Gastrointestinal: as per HPI, abdominal pain, other (Fluid build-up in his abdomen) - Genitourinary Genitourinary ROS male: as per HPI - Musculoskeletal Musculoskeletal ROS IM: no numbness, no tingling - Integumentary Integumentary IM: no rash, no unusual bruising - Neurological Neurological ROS: no confusion, no convulsions, no focal weakness, no numbness, no tingling, no tremor(s) - Psychiatric Psychiatric: as per HPI, anxiety, depression - Endocrine Endocrine IM: as per HPI - Hematologic/Lymphatic Hematologic/Lymphatic: no easy bruising - Allergic/Immunologic Allergic/Immunologic: as per HPI - Constitutional Vitals: Temp Pulse Resp BP Pulse Ox 98.3 F 56 16 144/75 97 02/20/17 19:47 02/20/17 19:47 02/20/17 19:47 02/20/17 19:47 02/20/17 19:47 General appearance: Present: cooperative, A&O X 3, pleasant, no acute distress, answers questions appropriately - Head Head exam: Present: atraumatic, normal inspection, normocephalic - Eye Eye exam: Present: PERRL, conjuntiva pink, sclera anicteric Pupils: Present: PERRL - ENT ENT exam: Present: normal exam - Neck Neck exam general surgery: Present: normal inspection, supple, trachea midline. Absent: lymphadenopathy - Respiratory Respiratory exam: Present: CTAB. Absent: accessory muscle use, rales, rhonchi, wheezes - Cardiovascular Cardiovascular exam: Present: RRR, +S1, +S2. Absent: diastolic murmur, gallop, rubs, systolic murmur - GI/Abdominal GI/Abdominal exam: Present: distended, normal bowel sounds, soft, tenderness, no peritoneal signs - Rectal Rectal exam: Present: deferred - Additional comments: exam deferred. - Extremities Exam Extremities exam: Present: warm, radial pulses palpable and symmetrical. Absent : calf tenderness, cyanotic, pedal edema - Back Exam Back exam: Present: normal inspection - Neurological Exam Neurological exam: Present: CN II-XII intact, oriented X3, no focal deficits. Absent: pronater drift, facial droop, speech deficit - Psychiatric Psychiatric exam: Present: normal affect, normal mood - Skin Skin exam: Present: dry, intact Internal Med - H&P Results - Labs CBC & Chem 7: 02/20/17 13:51 02/20/17 13:51 - EKG Data EKG shows normal: sinus rhythm - EKG Data Prior EKG available for review: yes When compared to previous EKG: there is no significant change Interpretation IM: suggestive of ischemia EKG comments: 02/20/17 21:36 EKG dated 02/18/17 shows sinus bradycardia with left atrial enlargement and lateral ischemia. Poor R-wave progression. EKG dated 02/20/17 shows sinus rhythm, possible left atrial enlargement, ST deviation and moderate T-wave abnormality. Consider lateral ischemia. - Diagnostic Studies CT scan - abdomen Additional comments: Impressions Abdomen/Pelvis CT 02/20/17 14:23 IMPRESSION: Moderate abdominal and pelvic ascites, soft tissue anasarca, and small bilateral pleural effusions. Mural thickening of small and large bowel is likely reactive secondary to ascites. While less favored, enteritis cannot be excluded in the appropriate clinical setting. D/ / Catracho Schulte MD / Catracho Schulte MD Interpreting Provider: Catracho Schulte MD
[2017-02-20] MEDS ORDERED: OXYMORPHONE HCL 20 MG PO SCH (21:30)
[2017-02-20] MEDS: *HR* OxyCODONE Immed Rel 5 MG TABLET PO PRN (22:07)
--- NOTE | 2017-02-20 23:49 | Event Note ---
Date of Encounter: 02/20/17 Time of Encounter: 23:00 Discussed with SANGITA and agree with assessment and plan. Patient with recurrent ascites and interventional radiology consulted for paracentesis. Nephrology consulted for end-stage renal disease management with hemodialysis.
[2017-02-21] MEDS: *HR* OxyCODONE Immed Rel 5 MG TABLET PO PRN ×3 (02:43→14:06)
[2017-02-21 03:03] LABS: Basophils # 0.1 K/mcL (0.0-0.2); Basophils % 1.6 %; Eosinophils # 0.2 K/mcL (0.0-0.6); Eosinophils % 5.2 %; Hematocrit 32.3 % (37.5-50.1); Hemoglobin 10.7 g/dL (12.9-16.9); Immature Granulocytes % 0.2 % (0-4); Lymphocytes % 24.1 %; Mean Corpuscular HGB Conc 33.1 g/dL (31.6-35.5); Mean Corpuscular Hemoglobin 30.4 pg (28.0-33.3); Mean Corpuscular Volume 91.8 fL (83.0-100.0); Mean Platelet Volume 9.8 fL (9.4-12.4); Monocytes # 0.6 K/mcL (0.0-1.3); Monocytes % 13.3 %; Neutrophils # 2.4 K/mcL (1.6-8.9); Platelet Count 161 K/mcL (140-400); Red Blood Count 3.52 M/mcL (4.19-5.50); Red Cell Distribution Width 14.4 % (11.5-14.5); Segmented Neutrophils % 55.6 %
[2017-02-21 03:08] LABS: INR 1.3; Prothrombin Time 13.8 Seconds (9.4-12.1)
[2017-02-21 03:11] LABS: Activated Partial Thrombo Time 32.6 Seconds (26.0-36.0)
[2017-02-21 03:21] LABS: Albumin 3.1 g/dL (3.5-5.0); Albumin/Globulin Ratio 1.1 (1.1-2.2); Bilirubin,Total 0.5 mg/dL (0.2-1.2); Calcium 7.7 mg/dL (8.6-10.8); Chol/HDL Ratio 2.5 (0-4.9); Globulin 2.8 g/dL (2.4-3.5); Magnesium 2.5 mg/dL (1.6-2.6); Potassium 5.3 mEq/L (3.5-4.5); Total Protein 5.9 g/dL (6.0-8.3)
[2017-02-21] MEDS ORDERED: *HR* OxyCODONE ER (12 HR) 40 MG TABLET PO SCH (06:00)
[2017-02-21] MEDS: niCARdipine 20 MG CAPSULE PO SCH ×2 (08:09→14:07)
[2017-02-21] MEDS: cloNIDine HCl 0.1 MG TABLET PO SCH ×2 (08:10→14:06)
[2017-02-21] MEDS: hydrALAZINE 25 MG TABLET PO SCH ×2 (08:10→14:06)
--- NOTE | 2017-02-21 08:27 | Nephrology Consult Note ---
Date of Encounter: 02/21/17 Time of Encounter: 08:25 Assessment and Plan (1) ESRD (end stage renal disease) on dialysis Current Visit: Yes Status: Chronic The patient will undergo dialysis today. I am not certain that he requires a paracentesis. If so this concern would be done as an outpatient. Patient is anxious to be discharged home since he does have some medical appointments tomorrow that is anxious to keep. From my standpoint would be fine to discharge him home following dialysis this morning. (2) Ascites Current Visit: Yes Status: Acute Qualifiers: Ascites type: other type Qualified Code(s): R18.8 - Other ascites (3) HTN (hypertension) Current Visit: Yes Status: Chronic Qualifiers: Hypertension type: essential hypertension Qualified Code(s): I10 - Essential (primary) hypertension History of Present Illness - History of Present Illness This is a 41-year-old male with end-stage renal disease and receives dialysis injection every Tuesday. Patient presented to emergency room with complaints of abdominal bloating and shortness of breath. CT scan showed a moderate amount of abdominal ascites. There are small bilateral pleural effusions noted. The patient missed his dialysis on Tuesday because he was in the emergency room with some issues regarding his AV fistula. Currently the patient continues to experience some shortness of breath. However he is in no acute distress. He will undergo his usual dialysis today. He denies any abdominal pain nausea vomiting or change in bowel habits. He denies any chest pain. Had a history of abdominal ascites in the past. Past Med Surg Social Fam HX - Past Medical History Medical history: arthritis, CHF, dialysis (MWF), hypertension, pulmonary embolus (Three years ago), renal disease Psychiatric history: anxiety, depression - Past Surgical History Surgical History: orthopedic, other (Rt. 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, left approximately IV fistula with a stent placement, pleurodeses due to left pleural effusion, sinus surgery) - Social History Smoking Status: Never smoker Smokeless Tobacco Status: No Alcohol use: none Drug use: none - Family History Brother Race: Family Member Ethnicity: Non- Living Status: Still Living Hx Family Medical Disorders: No Sister Race: Family Member Ethnicity: Non- Living Status: Still Living Hx Family Medical Disorders: No Father Race: Family Member Ethnicity: Non- Living Status: Still Living Hx Family Cardiac Disorders: No Hx Family Respiratory Disorders: No Hx Family Cancer: No Hx Family GI Disorders: No Hx Family Endocrine Disorder: No Hx Family Neuromuscular Disorders: No Hx Family Neurologic Disorders: No Hx Family HEENT Disorders: No Hx Family Autoimmune Disorders: No Hx Family Psychosocial Disorders: Yes (Anxiety) Mother Adopted: No Race: Family Member Ethnicity: Non- Living Status: Age at : 70 Cause of : COPD Hx Family Cardiac Disorders: No Hx Family Respiratory Disorders: Yes (COPD, emphysema) Hx Family Cancer: No Hx Family GI Disorders: No Hx Family Endocrine Disorder: No Hx Family Neuromuscular Disorders: No Hx Family Neurologic Disorders: No Hx Family HEENT Disorders: No Hx Family Autoimmune Disorders: No Medications and Allergies Calcium Acetate [Phos-LO] 1,334 mg PO TIDWM 05/12/15 [History] amLODIPine [Norvasc] 10 mg PO BID 05/12/15 [History] cloNIDine HCl [Clonidine HCl] 0.2 mg PO TID 05/12/15 [History] Sertraline [Zoloft] 100 mg PO HS 01/22/16 [History] Renal Vitamin [Renal Caps Softgel] 1 mg PO DAILY 03/22/16 [History] Aspirin Enteric Coated [Aspirin EC] 81 mg PO DAILY #30 tablet.dr 03/24/16 [Rx] Isosorbide DInitrate [Isordil] 20 mg PO TIDAC #90 tablet 03/24/16 [Rx] Lisinopril [Zestril] 40 mg PO DAILY tablet 03/24/16 [Rx] niCARdipine [Cardene] 20 mg PO TID #90 capsule 03/24/16 [Rx] Carvedilol [Coreg] 6.25 mg PO BID 05/07/16 [History] Diltiazem [Cardizem] 30 mg PO QID 05/07/16 [History] Oxycodone HCl 20 mg PO Q4HR PRN 10/25/16 [History] Labetalol HCl 300 mg PO BID 10/26/16 [History] hydrALAZINE [HydrALAZINE] 50 mg PO TID #0 10/26/16 [Rx] Oxymorphone HCl [Oxymorphone HCl ER] 20 mg PO Q12H 02/12/17 [History] Darbepoetin [Aranesp] 60 mcg SQ QWEEK syringe 02/15/17 [Rx] Nitroglycerin 0.4 mg SL Q5MIN PRN #20 tab.subl 02/15/17 [Rx] 3 Allergy/AdvReac Type Severity Reaction Status Date / Time Cephalosporins Allergy Hives Verified 02/18/17 10:39 codeine Allergy Hives Verified 02/18/17 10:39 Sulfa (Sulfonamide Allergy Hives Verified 02/18/17 10:39 Antibiotics) morphine AdvReac Difficulty Verified 02/18/17 10:39 Breathing Review of Systems Constitutional: as per HPI Nose, mouth and throat: no dizziness, no headache(s) Cardiovascular: as per HPI, dyspnea, dyspnea on exertion Respiratory: dyspnea, dyspnea on exertion Gastrointestinal: bloating Musculoskeletal: no muscle weakness, no numbness Integumentary: no hirsutism, no striae Neurological: as per HPI Psychiatric: no depression, no difficulty concentrating Endocrine: as per HPI Hematologic/Lymphatic: no easy bruising, no lymphadenopathy Exam - Vital Signs Vital signs: Initial Vital Signs Temp Pulse Resp BP Pulse Ox 98.2 F 73 16 146/80 97 02/20/17 13:38 02/20/17 13:38 02/20/17 13:38 02/20/17 13:38 02/20/17 13:38 Vital Signs - Last 8 Hours Temp Pulse Resp BP Pulse Ox 02/21/17 07:32 98.1 F 58 16 160/86 96 02/21/17 05:24 98.4 F 59 16 161/89 96 02/21/17 00:40 98.2 F 69 16 150/80 97 Intake and Output 02/20/17 02/21/17 02/21/17 23:59 07:59 15:59 Other: Weight 64.8 kg Patient Weight 02/21/17 23:59 Weight 64.8 kg - General Appearance Exam: Patient is alert and oriented. He is in no acute distress. Lungs faint rales in the bases otherwise clear to auscultation. Heart regular rate and rhythm with a 2/6 start ejection murmur. Abdomen is soft. There is no tenderness guarding nor rigidity. There does not appear to be any significant abdominal distention. There is no peripheral edema. There is a functioning AV fistula in the left upper extremity. Small pseudoaneurysm is noted. Results - Lab Results 02/21/17 02:33 02/21/17 02:33 Most recent lab results Calcium 7.7 mg/dL (8.6-10.8) L 02/21/17 02:33 Phosphorus 8.0 mg/dL (2.3-4.7) H 02/21/17 02:33 Magnesium 2.5 mg/dL (1.6-2.6) 02/21/17 02:33 Consult Discharge Plan - Plan Referrals: Starla Wolfe, [employer] [Primary Care Provider] -
[2017-02-21] MEDS ORDERED: 0.9 % Sodium Chloride 250 ML IVC PRN (08:28)
[2017-02-21] MEDS: Calcium Acetate 667 MG CAPSULE PO SCH ×2 (08:45→14:05)
[2017-02-21] MEDS ORDERED: Aspirin Enteric Coated 81 MG Tablet PO SCH (09:00)
[2017-02-21] MEDS ORDERED: amLODIPine 5 MG TABLET PO SCH (09:00)
[2017-02-21] MEDS ORDERED: Lisinopril 20 MG TABLET PO SCH (09:00)
[2017-02-21] MEDS ORDERED: Lidocaine -MPF 1% 2 ML VIAL ID PRN (09:00)
[2017-02-21] MEDS ORDERED: Renal Vitamin 1 MG CAPSULE PO SCH (09:00)
--- NOTE | 2017-02-21 11:17 | Discharge Summary ---
Date of Encounter: 02/21/17 Time of Encounter: 11:15 - Discharge Diagnosis (1) Abdominal pain Priority: Primary Status: Resolved Qualifiers: Abdominal location: generalized Qualified Code(s): R10.84 - Generalized abdominal pain (2) Ascites Priority: Secondary Status: Chronic Qualifiers: Ascites type: other type Qualified Code(s): R18.8 - Other ascites (3) DVT prophylaxis Priority: Secondary Status: Acute (4) ESRD (end stage renal disease) on dialysis Priority: Primary Status: Chronic (5) HTN (hypertension) Priority: Secondary Status: Chronic Qualifiers: Hypertension type: essential hypertension Qualified Code(s): I10 - Essential (primary) hypertension - Discharge Medications Home Medications: Calcium Acetate [Phos-LO] 1,334 mg PO TIDWM 05/12/15 [History] amLODIPine [Norvasc] 10 mg PO BID 05/12/15 [History] cloNIDine HCl [Clonidine HCl] 0.2 mg PO TID 05/12/15 [History] Sertraline [Zoloft] 100 mg PO HS 01/22/16 [History] Renal Vitamin [Renal Caps Softgel] 1 mg PO DAILY 03/22/16 [History] Aspirin Enteric Coated [Aspirin EC] 81 mg PO DAILY #30 tablet.dr 03/24/16 [Rx] Isosorbide DInitrate [Isordil] 20 mg PO TIDAC #90 tablet 03/24/16 [Rx] Lisinopril [Zestril] 40 mg PO DAILY tablet 03/24/16 [Rx] niCARdipine [Cardene] 20 mg PO TID #90 capsule 03/24/16 [Rx] Carvedilol [Coreg] 25 mg PO BID 05/07/16 [History] Diltiazem [Cardizem] 30 mg PO QID 05/07/16 [History] Oxycodone HCl 20 mg PO Q4HR PRN 10/25/16 [History] hydrALAZINE [HydrALAZINE] 50 mg PO TID #0 10/26/16 [Rx] Oxymorphone HCl [Oxymorphone HCl ER] 20 mg PO Q12H 02/12/17 [History] Darbepoetin [Aranesp] 60 mcg SQ QWEEK syringe 02/15/17 [Rx] Nitroglycerin 0.4 mg SL Q5MIN PRN #20 tab.subl 02/15/17 [Rx] Allergies/Adverse Reactions: 3 Allergy/AdvReac Type Severity Reaction Status Date / Time Cephalosporins Allergy Hives Verified 02/18/17 10:39 codeine Allergy Hives Verified 02/18/17 10:39 Sulfa (Sulfonamide Allergy Hives Verified 02/18/17 10:39 Antibiotics) morphine AdvReac Difficulty Verified 02/18/17 10:39 Breathing Procedures/tests Complete & Pending: Procedures Performed prior 72 hours Category Date Time Status IR tissue ablation CT guidance [IR] Routine IR 02/21/17 Taken Date of admission: 02/20/17 21:07 Primary care physician: Starla Wolfe CNP Consults: 02/20/17 21:15 Consult to Interventional Radiology [CONS] Routine Consulting Provider: Radiology Interventional Cols Reason for Consult: Patient will require paracentesis for ascites in the a.m. as well as dialysis. Pharmacy monitoring coags. Call Completed: No 02/21/17 08:30 Consult to Dialysis [CONS] ONCE Discharging clinician: Faviola Guo Anticipated date of discharge: 02/21/17 - Patient Status Disposition: Home, Self-Care Condition: Good Functional capacity at discharge: independent ambulation Overall status at discharge: patient is back to baseline - Discharge Instructions Follow Up With: Starla Wolfe CNP [Primary Care Provider] - Additional Instructions: Please follow up your primary care physician and roll forming machine set up operator within one week after your discharge from the hospital. Please continue with your hemodialysis sessions as per your primary roll forming machine set up operator. Please resume all home medications as prescribed by your primary care physician. - Diet and Activity Activity: resume usual activities as tolerated Diet: advance to your usual diet, low fat, low cholesterol, low salt diet Hospital course: Mr. Mendez is a 41 year old male with PMH of ESRD on HD, ascites,HTN who was admitted for abd discomfort and shortness of breath. He reported of missing his hemodialysis on Tuesday which worsened his symptoms overnight weekend, prompting his visit to the ER. He was seen by his primary roll forming machine set up operator (Dr. Garcia) and is currently undergoing hemodialysis. He is tolerating dialysis well and reports of resolution of all his presenting symptoms. Abd US revealed minimal ascites, not requiring any paracentesis at this time, and patient is to follow up as outpatient. At this time patient reports of feeling significantly better with resolution of his presenting complains. He is hemodynamically stable and requests to be discharged to home today. Patient will likely be discharged to home pending tolerance of hemodialysis. Patient demonstrates understanding of his diagnosis and agrees with the discharge care and plan. - Time Spent with Patient Total time spent providing and/or coordinating discharge services: Less than 30 minutes - Constitutional Vitals: Temp Pulse Resp BP Pulse Ox 98.1 F 58 16 160/86 96 02/21/17 07:32 02/21/17 07:32 02/21/17 07:32 02/21/17 07:32 02/21/17 07:32 General appearance: Present: cooperative, A&O X 3, pleasant, no acute distress, answers questions appropriately - Head Head exam: Present: atraumatic, normocephalic - Eye Eye exam: Present: conjuntiva pink, sclera anicteric - Respiratory Respiratory exam: Absent: accessory muscle use, respiratory distress, wheezes - Cardiovascular Cardiovascular exam: Present: RRR, +S1, +S2, systolic murmur - GI/Abdominal GI/Abdominal exam: Present: normal bowel sounds (mild ascites, no fluid wave ), soft. Absent: tenderness - Extremities Exam Extremities exam: Present: warm, radial pulses palpable and symmetrical. Absent : calf tenderness, cyanotic, pedal edema Additional comments: LUE AV fistula - Neurological Exam Neurological exam: Present: alert, oriented X3 - Psychiatric Psychiatric exam: Present: normal affect, normal mood
[2017-02-21 13:34] VITALS: BP 132/78
[2017-02-21] MEDS ORDERED: 0.9 % Sodium Chloride 2,000 ML ONE (14:08)
--- NOTE | 2017-02-21 15:06 | Electrocardiograph Report ---
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
[2017-02-21] MEDS ORDERED: *HR* Heparin 5,000 UNIT/ML VIAL SQ SCH (18:00)
== END 2017-02-21 14:15 | disposition home or self-care (01) | DRG 291 ==
LOC: 2ANU 13:03 → EMEROO 13:03 → 2ANU 16:31 → SUATTDRO 21:07
PROVIDERS: ADMIT Internal Medicine; ATTEND Internal Medicine

== ENCOUNTER 2017-03-13 12:41 | Inpatient (IN) ==
[2017-03-13 14:16] LABS: Basophils # 0.1 K/mcL (0.0-0.2); Basophils % 1.3 %; Eosinophils # 0.1 K/mcL (0.0-0.6); Eosinophils % 2.1 %; Hematocrit 32.3 % (37.5-50.1); Immature Granulocytes % 0.3 % (0-4); Lymphocytes # 0.8 K/mcL (0.6-4.6); Lymphocytes % 20.8 %; Mean Corpuscular HGB Conc 34.1 g/dL (31.6-35.5); Mean Corpuscular Hemoglobin 29.6 pg (28.0-33.3); Mean Corpuscular Volume 87.1 fL (83.0-100.0); Mean Platelet Volume 9.7 fL (9.4-12.4); Monocytes # 0.4 K/mcL (0.0-1.3); Monocytes % 9.8 %; Neutrophils # 2.5 K/mcL (1.6-8.9); Platelet Count 142 K/mcL (140-400); Red Blood Count 3.71 M/mcL (4.19-5.50); Red Cell Distribution Width 12.8 % (11.5-14.5); Segmented Neutrophils % 65.7 %
[2017-03-13 14:28] LABS: Calcium 8.2 mg/dL (8.6-10.8); Potassium 3.7 mEq/L (3.5-4.5)
--- NOTE | 2017-03-13 16:20 | Emergency Department Note ---
Disposition Clinical Impression: Loculated pleural effusion, Pleural effusion, ESRD (end stage renal disease) on dialysis, Intractable back pain, Elevated troponin Dyspnea Qualifiers: Dyspnea type: shortness of breath Qualified Code(s): R06.02 - Shortness of breath HTN (hypertension) Qualifiers: Hypertension type: unspecified Qualified Code(s): I10 - Essential (primary) hypertension Disposition: Admitted As Inpatient Condition: Fair Time of Disposition: 16:26 General Adult HPI - General Chief complaint: ED Shortness of Breath/Dyspnea Stated complaint: back pain Time Seen by Provider: 03/13/17 14:35 Source: patient Limitations: no limitations Nursing Notes Reviewed: Yes Vital Signs Reviewed: Yes - History of Present Illness HPI Narrative: 41-year-old male with significant past medical history of kidney transplant with rejection and now having no kidneys presenting to the emergency department with shortness of breath and right back pain. Patient states he currently gets dialysis Tuesday, Tuesday, Tuesday with Dr. Kim. He denies any fever, chest pain or abdominal pain at home. He states for the past 2 days he has had increased shortness of breath and right back pain. He states he was recently admitted for similar symptoms approximately 2-3 weeks ago. He states that he was admitted he was found to have fluid on his lungs and fluid in his abdomen. Patient also has significant medical history of blood clots in his right arm previously. He denies being on any anticoagulation at this time. Patient also states he has a history of congestive heart failure. Pain Scale: 8 - Related Data Home Medications Medication Instructions Recorded Confirmed Calcium Acetate [Phos-LO] 1,334 mg PO TIDWM 05/12/15 03/13/17 cloNIDine HCl [Clonidine HCl] 0.2 mg PO TID 05/12/15 03/13/17 Sertraline [Zoloft] 100 mg PO HS 01/22/16 03/13/17 Renal Vitamin [Renal Caps Softgel] 1 mg PO DAILY 03/22/16 03/13/17 Oxycodone HCl 20 mg PO Q6H PRN 10/25/16 03/13/17 Oxymorphone HCl [Oxymorphone HCl 20 mg PO Q12H 02/12/17 03/13/17 ER] Acetaminophen [Tylenol] 650 mg PO Q4H PRN 03/13/17 03/13/17 Amlodipine Besylate 10 mg PO DAILY 03/13/17 03/13/17 Carvedilol [Coreg] 25 mg PO BID 03/13/17 03/13/17 Hydralazine HCl 100 mg PO TID 03/13/17 03/13/17 Isosorbide MONOnitrate (24 HR) 30 mg PO DAILY 03/13/17 03/13/17 [Imdur] Lisinopril [Zestril] 20 mg PO DAILY 03/13/17 03/13/17 Minoxidil 5 mg PO DAILY 03/13/17 03/13/17 Promethazine [Phenergan] 25 mg PO Q6H PRN 03/13/17 03/13/17 Previous Rx's Medication Instructions Recorded Aspirin Enteric Coated [Aspirin EC] 81 mg PO DAILY #30 tablet. 03/24/16 Nitroglycerin 0.4 mg SL Q5MIN PRN #20 tab.subl 02/15/17 Allergies Allergy/AdvReac Type Severity Reaction Status Date / Time Cephalosporins Allergy Hives Verified 03/13/17 12:45 codeine Allergy Hives Verified 03/13/17 12:45 Sulfa (Sulfonamide Allergy Hives Verified 03/13/17 12:45 Antibiotics) morphine AdvReac Difficulty Verified 03/13/17 12:45 Breathing All systems ED: reviewed and negative except as stated. Constitutional: Denies: fever, chills Eyes: Reports: as per HPI ENT ED: Reports: as per HPI Cardiovascular: Denies: chest pain, palpitations Respiratory: Reports: dyspnea. Denies: cough, wheezes, hemoptysis Gastrointestinal: Denies: abdominal pain, nausea, vomiting Genitourinary: Reports: as per HPI Musculoskeletal: Reports: back pain Integumentary: Denies: rash, abrasion, lesions Neurological: Denies: numbness, paresthesias Psychiatric: Reports: as per HPI Endocrine: Reports: as per HPI Hematological/Lymphatic: Reports: as per HPI Allergic/Immunologic: Reports: as per HPI Past Medical History - Past Medical History Attestation: Yes The following information was validated with the patient. Medical history: Reports: arthritis, CHF, dialysis, hypertension, pulmonary embolus, renal disease Surgical history: Reports: orthopedic, other (Rt. 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 Absent: scleral icterus, conjunctival injection - Chest Chest inspection: Present: normal inspection, symmetric chest wall rise. Absent : tenderness, rash - Respiratory Respiratory exam: Present: other (Decreased breath sounds anterior and posterior bilaterally). Absent: respiratory distress, wheezes - Cardiovascular Cardiovascular exam: Present: normal rhythm, bradycardia, normal heart sounds - Abdominal Exam Abdominal exam: Present: soft, Non-Tender. Absent: distention, guarding, rebound - Extremities Exam Extremities exam: Present: normal inspection, full ROM - Neurological Exam Neurological exam: Present: alert, oriented X3 - Psychiatric Psychiatric exam: Present: normal affect, normal mood - Skin Skin exam: Present: warm, intact Course Course Narrative: 41-year-old male presenting to the emergency Department chief complaint shortness of breath and back pain. Patient has significant medical history of having no kidney disease and being on dialysis. He was previously admitted approximately 2-1/2 weeks ago for ascites and bilateral pleural effusions. Basic lab work was completed in triage. He is neutropenic with an elevated troponin of 0.04 but it looks like this is a chronic issue. Patient has history of blood clots. The perform a CT of the chest along the bilateral lower extremity Dopplers. We will also provide him with 10 of IV hydralazine due to his hypertension found in triage. All other vital signs are within normal limits. Patient's alert and oriented 3 in the room and agrees with this plan. Disposition was likely will be admission but pending these results. - Reevaluation(s) Reevaluation #1: CT of the chest shows increasing bilateral pleural effusions with possible loculation in the left lung. Bilateral lower extremity Dopplers were negative. We will admit the patient at this time for ascites found in the upper abdomen on CT along with the increasing pleural effusion. Patient's alert and oriented 3 in the room with stable vital signs at this time. He agrees with this plan. I spoke with the hospitalist on-call Dr. Arevalo who agrees to accept the patient. He would like us to start a nitro drip for the patient at this time. We will begin the nitro drip and admit the patient to the floor. Time: 16:25 Vital Signs Temperature 98.1 F 03/13/17 12:42 Pulse Rate 55 03/13/17 12:42 Respiratory Rate 16 03/13/17 12:42 Blood Pressure 225/114 03/13/17 12:42 O2 Sat by Pulse Oximetry 97 03/13/17 12:42 Temperature 98.4 F 03/13/17 23:49 Pulse Rate 65 03/13/17 23:49 Respiratory Rate 18 03/13/17 23:49 Blood Pressure 193/107 03/13/17 23:49 O2 Sat by Pulse Oximetry 94 03/13/17 17:57 Oxygen Delivery Oxygen Delivery Room Air Medical Decision Making - Lab Data Result diagrams: 03/13/17 14:10 03/13/17 14:10 Lab Results 03/13/17 03/13/17 03/13/17 Range/Units 14:10 14:10 14:10 WBC 3.8 L (4.3-11.1) K/mcL RBC 3.71 L (4.19-5.50) M/mcL Hgb 11.0 L (12.9-16.9) g/dL Hct 32.3 L (37.5-50.1) % MCV 87.1 (83.0-100.0) fL MCH 29.6 (28.0-33.3) pg MCHC 34.1 (31.6-35.5) g/dL RDW 12.8 (11.5-14.5) % Plt Count 142 (140-400) K/mcL MPV 9.7 (9.4-12.4) fL Immature Gran % 0.3 (0-4) % Seg Neutrophils % 65.7 % Lymphocytes % 20.8 % Monocytes % 9.8 % Eosinophils % 2.1 % Basophils % 1.3 % Neutrophils # 2.5 (1.6-8.9) K/mcL Lymphocytes # 0.8 (0.6-4.6) K/mcL Monocytes # 0.4 (0.0-1.3) K/mcL Eosinophils # 0.1 (0.0-0.6) K/mcL Basophils # 0.1 (0.0-0.2) K/mcL Sodium 133 L (136-145) mEq/L Potassium 3.7 (3.5-4.5) mEq/L Chloride 95 L (98-109) mEq/L Carbon Dioxide 32 H (19-29) mEq/L BUN 34 H (8-26) mg/dL Creatinine 7.61 H (0.72-1.25) mg/dL Est GFR ( Amer) 10 L (> 60) Est GFR (Non-Af Amer) 8 L (> 60) BUN/Creatinine Ratio 4 L (6-26) Glucose 106 H (70-99) mg/dL Calculated Osmolality 284 (280-300) Calcium 8.2 L (8.6-10.8) mg/dL Troponin I 0.04 H* (0-0.03) ng/mL Attestation Statement - Attestation Attestation: I examined this patient and my medical decision-making was reviewed with the Resident Physician. I agree with the documented findings, disposition and treatment plan as described except to the extent set forth below. Back pain and dyspnea. There is findings of bilateral pleural effusions. We will proceed with admission for evaluation of pleural effusions. I do suspect his back pain from diaphragmatic irritation however CT scan shows no evidence of acute pathology beyond findings of pleural effusions. The patient has no evidence of DVT but does have chronic cardiac biomarker elevation from end- stage renal disease. Additionally the patient has no kidneys as there is surgically removed. He does follow with Dr. Stern for dialysis. The patient will be admitted for further evaluation of pleural effusions, back pain , elevated cardiac biomarkers, dyspnea on exertion.
[2017-03-13] MEDS: Nitroglycerin 25 MG/250 ML INFUS..BTL IVC SCH (16:40)
[2017-03-13] MEDS ORDERED: *HR* FentaNYL (PF) 100 MCG/2 ML VIAL IVP ONE (17:08)
[2017-03-13] MEDS ORDERED: *HR* OxyCODONE Immed Rel 5 MG TABLET PO ONE ×2 (18:53→21:11)
[2017-03-13] MEDS ORDERED: Nitroglycerin 0.4 MG TAB.SUBL SL PRN (22:06)
[2017-03-13] MEDS ORDERED: NON-FORMULARY MEDICATION 1 EACH EACH (Oxycodone Hcl [Oxycodone Hcl] 20 MG) PO PRN (22:06)
[2017-03-13] MEDS ORDERED: Acetaminophen 325 MG TABLET PO PRN (22:06)
[2017-03-13] MEDS ORDERED: Naloxone 0.4 MG/ML INJ IVP PRN (22:07)
--- NOTE | 2017-03-13 22:12 | Internal Med History&Physical ---
Date of Encounter: 03/13/17 Time of Encounter: 22:12 Assessment and Plan (1) Hypertensive urgency Current visit: No Status: Acute continue IV nitroglycerin started in the ED restart PO BP meds close monitoring overnight (2) ESRD (end stage renal disease) on dialysis Current visit: Yes Status: Chronic consult renal for MWF HD (3) Elevated troponin Current visit: Yes Status: Acute trend trop, doubt ACS, suspect leak related to poorly controlled HTN (4) Chronic pain Current visit: No Status: Chronic continue chronic pain med with prn breakthrough as needed Qualifiers: Chronic pain type: chronic pain syndrome Qualified Code(s): G89.4 - Chronic pain syndrome Internal Medicine - H&P: HPI Chief complaint: SOB, flare of chronic pain History of present illness: Mr. Mendez is a 41 year old male ESRD on MWF HD who presents with SOB, acute on chronic back pain. Found to be in HTN urgency. He gets HD MWF (last received tuesday) with Dr Garcia. Has hx of chronic back pain that is localized to b/l flanks worse on inspiration - pleuritic component . He reports this pain to be chronic since talc pleurodesis for pleural effusion 3.5 years ago. In the past 3 days, he reports constant SOB like sensation reported as like "a rubber band on his chest". Did not get better with time. He feels that this chest symptoms feels like an extension of his chronic b/l post. flank pain. EKG reviewed by self with sinus david , rate 54 CT/CT abd pelvis wo no iv no oral IMPRESSION: No acute abnormality of the abdomen or pelvis. XR/XR chest 2V IMPRESSION: Small bilateral pleural effusions and nonspecific left basilar airspace opacities. Past Med Surg Social Fam HX - Past Medical History Medical history: arthritis, CHF, dialysis, hypertension, pulmonary embolus, renal disease Psychiatric history: anxiety, depression - Past Surgical History Surgical History: orthopedic, other, vascular surgery, other - Social History Smoking Status: Never smoker Smokeless Tobacco Status: No Alcohol use: none Drug use: none - Family History Brother Family Member Ethnicity: Non- Living Status: Still Living Sister Family Member Ethnicity: Non- Living Status: Still Living Father Family Member Ethnicity: Non- Living Status: Still Living Hx Family Cardiac Disorders: No Hx Family Respiratory Disorders: No Hx Family Cancer: No Hx Family GI Disorders: No Hx Family Endocrine Disorder: No Hx Family Neuromuscular Disorders: No Hx Family Neurologic Disorders: No Hx Family HEENT Disorders: No Hx Family Autoimmune Disorders: No Mother Adopted: No Family Member Ethnicity: Non- Living Status: Hx Family Cardiac Disorders: No Hx Family Respiratory Disorders: Yes (COPD, emphysema) Hx Family Cancer: No Hx Family GI Disorders: No Hx Family Endocrine Disorder: No Hx Family Neuromuscular Disorders: No Hx Family Neurologic Disorders: No Hx Family HEENT Disorders: No Hx Family Autoimmune Disorders: No Internal Medicine - H&P: Meds Calcium Acetate [Phos-LO] 1,334 mg PO TIDWM 05/12/15 [History] cloNIDine HCl [Clonidine HCl] 0.2 mg PO TID 05/12/15 [History] Sertraline [Zoloft] 100 mg PO HS 01/22/16 [History] Renal Vitamin [Renal Caps Softgel] 1 mg PO DAILY 03/22/16 [History] Aspirin Enteric Coated [Aspirin EC] 81 mg PO DAILY #30 tablet.dr 03/24/16 [Rx] Oxycodone HCl 20 mg PO Q6H PRN 10/25/16 [History] Oxymorphone HCl [Oxymorphone HCl ER] 20 mg PO Q12H 02/12/17 [History] Nitroglycerin 0.4 mg SL Q5MIN PRN #20 tab.subl 02/15/17 [Rx] Acetaminophen [Tylenol] 650 mg PO Q4H PRN 03/13/17 [History] Amlodipine Besylate 10 mg PO DAILY 03/13/17 [History] Carvedilol [Coreg] 25 mg PO BID 03/13/17 [History] Hydralazine HCl 100 mg PO TID 03/13/17 [History] Isosorbide MONOnitrate (24 HR) [Imdur] 30 mg PO DAILY 03/13/17 [History] Lisinopril [Zestril] 20 mg PO DAILY 03/13/17 [History] Minoxidil 5 mg PO DAILY 03/13/17 [History] Promethazine [Phenergan] 25 mg PO Q6H PRN 03/13/17 [History] 3 Allergy/AdvReac Type Severity Reaction Status Date / Time Cephalosporins Allergy Hives Verified 03/13/17 12:45 codeine Allergy Hives Verified 03/13/17 12:45 Sulfa (Sulfonamide Allergy Hives Verified 03/13/17 12:45 Antibiotics) morphine AdvReac Difficulty Verified 03/13/17 12:45 Breathing All Systems PM: A 10-system review of systems was performed and is negative for pertinent findings except as documented above in the HPI. Review of systems: ROS 14 point review of systems reviewed as best as possible given presentation. Pertinent positive or negative as per HPI or otherwise reviewed as negative - Constitutional Vitals: Temp Pulse Resp BP Pulse Ox 98.3 F 63 16 194/106 94 03/13/17 17:57 03/13/17 19:00 03/13/17 17:57 03/13/17 19:00 03/13/17 17:57 Exam: General - AAO x 3 Psych - Appropriate affect/speech. No agitation Eyes - NOEL. Eye lids intact. No scleral icterus Neuro - No gross peripheral or central neuro deficits on inspection Heart - Sinus david. RRR. S1 and S2 present. No added HS/murmurs appreciated. No elevated JVD appreciated. Lung - Adequate air entry b/l, No crackles/wheezes appreciated GI - Soft, non-tender. No hepatosplenomegaly/ascites. BS+ - No CVA/suprapubic tenderness or palpable bladder distension Skin - Intact. No rash/petechiae/ecchymosis. Warm extremities MSK - Joints with normal ROM. No joint swellings Internal Med - H&P Results - Labs CBC & Chem 7: 03/13/17 14:10 03/13/17 14:10
[2017-03-13] MEDS: *HR* OxyCODONE ER (12 HR) 20 MG TABLET PO SCH (22:36)
[2017-03-13] MEDS ORDERED: 0.9 % Sodium Chloride 500 ML ONE (23:07)
[2017-03-13] MEDS ORDERED: *HR* HYDROmorphone (PF) 1 MG/ML SYRINGE IVP ONE (23:23)
[2017-03-14] MEDS: OxyCODONE Immed Rel 15 MG, OxyCODONE Immed Rel 5 MG PO PRN ×3 (00:52→13:23)
[2017-03-14] MEDS ORDERED: *HR* OxyCODONE Immed Rel 5 MG TABLET PO ONE (02:47)
[2017-03-14] MEDS: Nitroglycerin 25 MG/250 ML INFUS..BTL IVC SCH (03:22)
[2017-03-14 05:12] LABS: Basophils % 0.9 %; Eosinophils # 0.1 K/mcL (0.0-0.6); Eosinophils % 2.3 %; Hematocrit 25.9 % (37.5-50.1); Immature Granulocytes % 0.2 % (0-4); Lymphocytes % 23.4 %; Mean Corpuscular HGB Conc 35.1 g/dL (31.6-35.5); Mean Corpuscular Volume 85.5 fL (83.0-100.0); Mean Platelet Volume 10.4 fL (9.4-12.4); Monocytes # 0.5 K/mcL (0.0-1.3); Monocytes % 12.3 %; Neutrophils # 2.6 K/mcL (1.6-8.9); Platelet Count 136 K/mcL (140-400); Red Blood Count 3.03 M/mcL (4.19-5.50); Red Cell Distribution Width 12.9 % (11.5-14.5); Segmented Neutrophils % 60.9 %
[2017-03-14 05:13] LABS: Hemoglobin 9.1 g/dL (12.9-16.9)
[2017-03-14] MEDS ORDERED: niCARdipine 40 MG/200 ML MLS IVC SCH (05:15)
[2017-03-14 05:28] LABS: Calcium 7.2 mg/dL (8.6-10.8); Phosphorous 5.7 mg/dL (2.3-4.7); Potassium 3.1 mEq/L (3.5-4.5)
[2017-03-14] MEDS ORDERED: *HR* Heparin 5,000 UNIT/ML VIAL SQ SCH (06:00)
[2017-03-14] MEDS: hydrALAZINE 25 MG TABLET PO SCH ×2 (08:11→16:09)
[2017-03-14] MEDS: cloNIDine HCl 0.1 MG TABLET PO SCH ×2 (08:12→16:09)
[2017-03-14] MEDS: Calcium Acetate 667 MG CAPSULE PO SCH ×2 (08:12→12:21)
[2017-03-14] MEDS ORDERED: Lidocaine 1% 20 ML MDV ID ONE (08:19)
--- NOTE | 2017-03-14 08:52 | Nephrology Consult Note ---
Date of Encounter: 03/14/17 Time of Encounter: 08:50 Assessment and Plan (1) ESRD (end stage renal disease) on dialysis Current Visit: Yes Status: Chronic Patient will undergo dialysis today. I will make some changes in his antihypertensive regimen to try and get better control of his blood pressure. His blood pressure medications should not be held on dialysis days. Patient requires chronic narcotic use for pleuritic pain control. (2) Hypertensive emergency Current Visit: No Status: Acute (3) Loculated pleural effusion Current Visit: Yes Status: Chronic (4) Pleuritic chest pain Current Visit: No Status: Acute History of Present Illness - History of Present Illness This is a 41-year-old male with end-stage renal disease. He receives dialysis every Tuesday. Patient was admitted with worsening right thoracic back pain. He has a history of chronic pleuritic as well as back pain. Usually his pain is on the left. This time he presents with worsening right sided thoracic pain. It is limiting his ability to breathe. He has been seeing pain management. He is undergone left pleurodesis in the past. He is undergone previous nerve blocks as well as electrical stimulation without good results. He takes chronic narcotics. When he has an exacerbation of his pleuritic pain his blood pressure becomes extremely elevated and he presents with hypertensive urgency. Blood pressure on presentation was around 204/118. Patient continues to experience right sided back pain in the thoracic region. He scheduled for his usual dialysis today. Past Med Surg Social Fam HX - Past Medical History Medical history: arthritis, CHF, dialysis, hypertension, pulmonary embolus, renal disease Psychiatric history: anxiety, depression - Past Surgical History Surgical History: orthopedic, other (Rt. 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, left approximately IV fistula with a stent placement, pleurodeses due to left pleural effusion, sinus surgery) - Social History Smoking Status: Never smoker Smokeless Tobacco Status: No Alcohol use: none Drug use: none - Family History Brother Family Member Ethnicity: Non- Living Status: Still Living Sister Family Member Ethnicity: Non- Living Status: Still Living Father Family Member Ethnicity: Non- Living Status: Still Living Hx Family Cardiac Disorders: No Hx Family Respiratory Disorders: No Hx Family Cancer: No Hx Family GI Disorders: No Hx Family Endocrine Disorder: No Hx Family Neuromuscular Disorders: No Hx Family Neurologic Disorders: No Hx Family HEENT Disorders: No Hx Family Autoimmune Disorders: No Mother Adopted: No Family Member Ethnicity: Non- Living Status: Hx Family Cardiac Disorders: No Hx Family Respiratory Disorders: Yes (COPD, emphysema) Hx Family Cancer: No Hx Family GI Disorders: No Hx Family Endocrine Disorder: No Hx Family Neuromuscular Disorders: No Hx Family Neurologic Disorders: No Hx Family HEENT Disorders: No Hx Family Autoimmune Disorders: No Medications and Allergies Calcium Acetate [Phos-LO] 1,334 mg PO TIDWM 05/12/15 [History] cloNIDine HCl [Clonidine HCl] 0.2 mg PO TID 05/12/15 [History] Sertraline [Zoloft] 100 mg PO HS 01/22/16 [History] Renal Vitamin [Renal Caps Softgel] 1 mg PO DAILY 03/22/16 [History] Aspirin Enteric Coated [Aspirin EC] 81 mg PO DAILY #30 tablet.dr 03/24/16 [Rx] Oxycodone HCl 20 mg PO Q6H PRN 10/25/16 [History] Oxymorphone HCl [Oxymorphone HCl ER] 20 mg PO Q12H 02/12/17 [History] Nitroglycerin 0.4 mg SL Q5MIN PRN #20 tab.subl 02/15/17 [Rx] Acetaminophen [Tylenol] 650 mg PO Q4H PRN 03/13/17 [History] Amlodipine Besylate 10 mg PO DAILY 03/13/17 [History] Carvedilol [Coreg] 25 mg PO BID 03/13/17 [History] Hydralazine HCl 100 mg PO TID 03/13/17 [History] Isosorbide MONOnitrate (24 HR) [Imdur] 30 mg PO DAILY 03/13/17 [History] Lisinopril [Zestril] 20 mg PO DAILY 03/13/17 [History] Minoxidil 5 mg PO DAILY 03/13/17 [History] Promethazine [Phenergan] 25 mg PO Q6H PRN 03/13/17 [History] 3 Allergy/AdvReac Type Severity Reaction Status Date / Time Cephalosporins Allergy Hives Verified 03/13/17 12:45 codeine Allergy Hives Verified 03/13/17 12:45 Sulfa (Sulfonamide Allergy Hives Verified 03/13/17 12:45 Antibiotics) morphine AdvReac Difficulty Verified 03/13/17 12:45 Breathing Review of Systems Constitutional: as per HPI Eyes: bilateral: blurred vision (patient denies), diplopia (patient denies) Cardiovascular: chest pain, chest pain at rest, dyspnea, no palpitations Respiratory: dyspnea, pain on inspiration Gastrointestinal: no abdominal pain, no change in bowel habits Musculoskeletal: no muscle weakness, no numbness Integumentary: no hirsutism, no striae Neurological: as per HPI Psychiatric: no depression, no difficulty concentrating Endocrine: as per HPI Hematologic/Lymphatic: no easy bruising, no lymphadenopathy Exam - Vital Signs Vital signs: Initial Vital Signs Temp Pulse Resp BP Pulse Ox 98.1 F 55 16 225/114 97 03/13/17 12:42 03/13/17 12:42 03/13/17 12:42 03/13/17 12:42 03/13/17 12:42 Vital Signs - Last 8 Hours Temp Pulse Resp BP Pulse Ox 03/14/17 07:52 98.3 F 62 18 171/96 94 03/14/17 06:20 69 155/81 03/14/17 06:05 66 148/79 03/14/17 06:00 66 151/75 03/14/17 05:45 64 152/82 03/14/17 05:40 64 152/86 03/14/17 05:35 62 172/96 03/14/17 05:30 64 152/86 03/14/17 05:00 60 196/111 03/14/17 04:31 98.5 F 62 14 187/105 03/14/17 04:30 61 187/105 03/14/17 04:15 61 171/93 03/14/17 04:00 62 194/106 03/14/17 03:45 64 184/106 03/14/17 03:30 68 193/109 03/14/17 02:45 61 173/98 03/14/17 01:45 57 174/96 03/14/17 01:00 64 176/104 Intake and Output 03/13/17 03/14/17 03/14/17 23:59 07:59 15:59 Intake Total 48 / 112 264.5 / 264.5 Balance 48 / 112 264.5 / 264.5 Intake: IV Fluids 48 / 264.5 / 264.5 Nitroglycerin Premix 25 MG/250 48 / 227 / 227 ML 25 mg In 250 ml @ 10 MCG/MIN 6 mls/hr IVC .Q24H COUNTS INCLUDE 234 BEDS AT THE [facility] Rx#: [id number] Cardene Premix 40mg/200ml 40 mg 37.5 / 37.5 In 200 ml @ 5 MG/HR 25 mls/hr IVC .Q8H PAWEL Rx#:[id number] Other: Meal Dinner Percent of Meal Consumed 0% # Bowel Movements 1 1 Weight 62.9 kg Patient Weight 03/14/17 23:59 Weight 62.9 kg - General Appearance Exam: Patient is alert and oriented. He is sitting on the edge of the bed. He is in no acute distress. Lungs essentially clear to auscultation. Heart regular rate and rhythm with a 2/6 systolic ejection murmur. Abdomen shows normal bowel sounds. No bruits masses organomegaly or tenderness. There is no lower extremity swelling. There is a functioning AV fistula in the left upper extremity. Results - Lab Results 03/14/17 04:40 03/14/17 04:40 Most recent lab results Calcium 7.2 mg/dL (8.6-10.8) L 03/14/17 04:40 Phosphorus 5.7 mg/dL (2.3-4.7) H 03/14/17 04:40 Magnesium 2.0 mg/dL (1.6-2.6) 03/14/17 04:40 Consult Discharge Plan - Plan Referrals: Starla Wolfe, [employer] [Primary Care Provider] - (SENT WEB REQUEST ON 03/14/17 @ 2562)
[2017-03-14] MEDS ORDERED: 0.9 % Sodium Chloride 250 ML IVC PRN (08:55)
[2017-03-14] MEDS ORDERED: Isosorbide MONOnitrate (24 HR) 30 MG TAB.ER.24H PO SCH (09:00)
[2017-03-14] MEDS ORDERED: Renal Vitamin 1 MG CAPSULE PO SCH (09:00)
[2017-03-14] MEDS ORDERED: amLODIPine 5 MG TABLET PO SCH (09:00)
[2017-03-14] MEDS ORDERED: Lisinopril 20 MG TABLET PO SCH (09:00)
[2017-03-14] MEDS ORDERED: Aspirin Enteric Coated 81 MG Tablet PO SCH (09:00)
[2017-03-14] MEDS ORDERED: 0.9 % Sodium Chloride 2,000 ML ONE (09:13)
[2017-03-14] MEDS: *HR* OxyCODONE ER (12 HR) 20 MG TABLET PO SCH (10:01)
--- NOTE | 2017-03-14 10:35 | Discharge Summary ---
<Richa Carreon - Last Filed: 03/14/17 10:32> Date of Encounter: 03/14/17 Time of Encounter: 10:32 - Discharge Diagnosis (1) Hypertensive urgency Priority: Primary Status: Acute (2) ESRD (end stage renal disease) on dialysis Priority: Secondary Status: Chronic (3) Elevated troponin Priority: Secondary Status: Acute (4) Chronic pain Priority: Secondary Status: Chronic Qualifiers: Chronic pain type: chronic pain syndrome Qualified Code(s): G89.4 - Chronic pain syndrome - Discharge Medications Prescriptions: Minoxidil 5 mg PO BID #60 tablet Home Medications: Calcium Acetate [Phos-LO] 1,334 mg PO TIDWM 05/12/15 [History] cloNIDine HCl [Clonidine HCl] 0.2 mg PO TID 05/12/15 [History] Sertraline [Zoloft] 100 mg PO HS 01/22/16 [History] Renal Vitamin [Renal Caps Softgel] 1 mg PO DAILY 03/22/16 [History] Aspirin Enteric Coated [Aspirin EC] 81 mg PO DAILY #30 tablet.dr 03/24/16 [Rx] Oxycodone HCl 20 mg PO Q6H PRN 10/25/16 [History] Oxymorphone HCl [Oxymorphone HCl ER] 20 mg PO Q12H 02/12/17 [History] Nitroglycerin 0.4 mg SL Q5MIN PRN #20 tab.subl 02/15/17 [Rx] Acetaminophen [Tylenol] 650 mg PO Q4H PRN 03/13/17 [History] Amlodipine Besylate 10 mg PO DAILY 03/13/17 [History] Carvedilol [Coreg] 25 mg PO BID 03/13/17 [History] Hydralazine HCl 100 mg PO TID 03/13/17 [History] Isosorbide MONOnitrate (24 HR) [Imdur] 30 mg PO DAILY 03/13/17 [History] Lisinopril [Zestril] 20 mg PO DAILY 03/13/17 [History] Promethazine [Phenergan] 25 mg PO Q6H PRN 03/13/17 [History] Minoxidil 5 mg PO BID #60 tablet 03/14/17 [Rx] Allergies/Adverse Reactions: 3 Allergy/AdvReac Type Severity Reaction Status Date / Time Cephalosporins Allergy Hives Verified 03/13/17 12:45 codeine Allergy Hives Verified 03/13/17 12:45 Sulfa (Sulfonamide Allergy Hives Verified 03/13/17 12:45 Antibiotics) morphine AdvReac Difficulty Verified 03/13/17 12:45 Breathing Date of admission: 03/13/17 22:07 Primary care physician: Starla Wolfe CNP Consults: 03/13/17 22:11 Consult to Nephrology [CONS] Routine Consulting Provider: [facility] J[facility] ANTONIO Reason for Consult: ESRD on HD Call Completed: Yes 03/14/17 09:00 Consult to Dialysis [CONS] ONCE Discharging clinician: Richa Carreon Anticipated date of discharge: 03/14/17 - Patient Status Disposition: Home, Self-Care Condition: Good Functional capacity at discharge: independent ambulation Overall status at discharge: patient is back to baseline - Discharge Instructions Instructions: Dialysis Diet (DC), Chronic Hypertension (DC) Follow Up With: Camden Garcia DO [Non-Partnered Physician] - (Dr. Garcia will see patient at the Dialysis Center) Starla Wolfe CNP [Primary Care Provider] - 03/21/17 1:00 pm () Forms: ED Satisfaction Letter Additional Instructions: please follow up with your primary care provider within one week of discharge. please take all of your medications as prescribed. Please note that nephrology has increased your dose of Minoxidil to twice per day Please follow up with nephrology as an outpatient Please return to the emergency department if you develop uncontrolled hypertension again. - Diet and Activity Activity: increase activity as tolerated Diet: other (renal diet) Hospital course: Mr. Mendez is a 41 year old male with PMHx of ESRD on HD MWF (lang Garcia), arthritis, CHF, HTN, PE. patient arrived to [facility] on 03/13/17 with chief complaint of shortness of breath, acute on chronic back pain, and was found to be in hypertensive urgency. His highest recorded blood pressure is 204/118. He was admitted for further workup. He also has hx of chronic back pain since talc pleurodesis about three years ago for chronic pleural effusions. chest CT showed small bilateral pleural effusions which are increased compared to prior study and loculated on the left. Pleural effusions were to small to remove fluid. Patient was originally placed on nitroglycerin drip but his blood pressure was not well controlled, so he was switched to cardene drip that was eventually weaned off. Consult to nephrology was made for dialysis. Nephrology physician had increased patient's home dose of minoxidil to twice a day. Patient states that he had never missed any doses of his blood pressure meds at home. His blood pressure normalized on its own without any further medications. Patient states that he has uncontrolled hypertension at times when he is in an increased amount of pain. patient was stable throughout the course of his hospital stay and had no acute events during his hospitalization. He will be discharged home after his dialysis today. Plan: may need follow up regarding possible further interventions for pleural effusions. will defer this to PCP as outpatient. please follow up with your primary care provider within one week of discharge. please take all of your medications as prescribed. Please note that nephrology has increased your dose of Minoxidil to twice per day Please follow up with nephrology as an outpatient Please return to the emergency department if you develop uncontrolled hypertension again. - Time Spent with Patient Total time spent providing and/or coordinating discharge services: - Constitutional Vitals: Temp Pulse Resp BP Pulse Ox 98.3 F 62 18 128/76 94 03/14/17 07:52 03/14/17 07:52 03/14/17 07:52 03/14/17 09:40 03/14/17 07:52 General appearance: Present: A&O X 3, pleasant, no acute distress, answers questions appropriately - Head Head exam: Present: atraumatic, normocephalic - Neck Neck exam general surgery: Present: supple, trachea midline - Respiratory Respiratory exam: Present: rales Additional comments: mild rales present on left lower lobe. - Cardiovascular Cardiovascular exam: Present: RRR, +S1, +S2 Additional comments: +2 systolic murmur present. - GI/Abdominal GI/Abdominal exam: Present: normal bowel sounds, soft. Absent: distended, tenderness - Extremities Exam Extremities exam: Absent: cyanotic, pedal edema - Back Exam Back exam: Absent: CVA tenderness (L), CVA tenderness (R) - Neurological Exam Neurological exam: Present: alert, oriented X3, no focal deficits - Psychiatric Psychiatric exam: Present: normal affect, normal mood <Nkadi,Chukwuemek - Last Filed: 03/14/17 17:15> Date of Encounter: 03/14/17 Date of admission: 03/13/17 22:07 Primary care physician: Starla Wolfe CNP Consults: 03/13/17 22:11 Consult to Nephrology [CONS] Routine Consulting Provider: [facility] ANTONIO Reason for Consult: ESRD on HD Call Completed: Yes 03/14/17 09:00 Consult to Dialysis [CONS] ONCE Hospital course: Mr. Mendez is a 41 year old male - Time Spent with Patient Total time spent providing and/or coordinating discharge services: - Constitutional Vitals: Temp Pulse Resp BP Pulse Ox 98.0 F 61 18 197/113 97 03/14/17 15:20 03/14/17 11:43 03/14/17 15:20 03/14/17 15:20 03/14/17 11:43
[2017-03-14 16:03] VITALS: BP 197/113
--- NOTE | 2017-03-16 12:40 | Electrocardiograph Report ---
[place] [id number] Test Date: 2017-03-13 Pat Name: Yogesh Mendez Department: 103 Room: 2N05 Gender: M Director Of Product Management: MADALYN : 1975 Requested By: Leena Fernandez Order Number: [id number] Reading MD: Jayce Johnston MD Measurements Intervals [place] Rate: 54 P: 41 CA: 157 QRS: 1 QRSD: 98 T: 109 QT: 535 QTc: 520 Interpretive Statements SINUS BRADYCARDIA LEFT ATRIAL ENLARGEMENT LEFT VENTRICULAR HYPERTROPHY AND ST-T CHANGE Electronically Signed On 03-16-2017 12:39:17 EST by Jayce Johnston MD
== END 2017-03-14 16:15 | disposition home or self-care (01) | DRG 304 ==
LOC: 2NNU 12:41 → EMEROO 12:41 → 2NNU 17:40
PROVIDERS: ADMIT Hospitalist; ATTEND Internal Medicine

== ENCOUNTER 2017-04-08 11:26 | Observation (INO) ==
[2017-04-08] MEDS ORDERED: Ondansetron ODT 4 MG TAB.RAPDIS SL ONE (11:55)
--- NOTE | 2017-04-08 11:58 | Emergency Department Note ---
Disposition Clinical Impression: Nausea & vomiting Qualifiers: Vomiting type: unspecified Vomiting Intractability: unspecified Qualified Code( s): R11.2 - Nausea with vomiting, unspecified Dyspnea Qualifiers: Dyspnea type: unspecified Qualified Code(s): R06.00 - Dyspnea, unspecified CHF (congestive heart failure) Qualifiers: Congestive heart failure type: unspecified congestive heart failure type Congestive heart failure chronicity: acute on chronic Qualified Code(s): I50.9 - Heart failure, unspecified Disposition: Admitted As Inpatient Condition: Fair Referrals: NONE,PCP [Primary Care Provider] - Forms: ED Satisfaction Letter Time of Disposition: 14:53 General Adult HPI - General Chief complaint: ED Shortness of Breath/Dyspnea Stated complaint: CORY Time Seen by Provider: 04/08/17 11:52 Source: patient Mode of arrival: ambulatory Limitations: no limitations Nursing Notes Reviewed: Yes Vital Signs Reviewed: Yes - History of Present Illness HPI Narrative: 41-year-old with a history of renal failure on dialysis who comes in today because of increasing shortness of breath unable to keep his medications down due to nausea vomiting. Denies any chest pain. Says he just can't keep his medications down. Patient is on dialysis his last dialysis was today and he was on for 3 hours. Pt Subjective Complaint: Nausea vomiting, dyspnea Onset (ago): day(s) Location: other (Lungs related to previous decortication that he's had for 3 years this is not new.) Pain Scale: 9 Quality: aching Consistency: constant Improves with: nothing Worsens with: nothing Associated symptoms: Reports: nausea/vomiting Treatments Prior to Arrival: none - Related Data Home Medications Medication Instructions Recorded Confirmed Calcium Acetate [Phos-LO] 1,334 mg PO TIDWM 05/12/15 03/13/17 cloNIDine HCl [Clonidine HCl] 0.2 mg PO TID 05/12/15 03/13/17 Sertraline [Zoloft] 100 mg PO HS 01/22/16 03/13/17 Renal Vitamin [Renal Caps Softgel] 1 mg PO DAILY 03/22/16 03/13/17 Oxycodone HCl 20 mg PO Q6H PRN 10/25/16 03/13/17 Oxymorphone HCl [Oxymorphone HCl 20 mg PO Q12H 02/12/17 03/13/17 ER] Acetaminophen [Tylenol] 650 mg PO Q4H PRN 03/13/17 03/13/17 Amlodipine Besylate 10 mg PO DAILY 03/13/17 03/13/17 Carvedilol [Coreg] 25 mg PO BID 03/13/17 03/13/17 Hydralazine HCl 100 mg PO TID 03/13/17 03/13/17 Isosorbide MONOnitrate (24 HR) 30 mg PO DAILY 03/13/17 03/13/17 [Imdur] Lisinopril [Zestril] 20 mg PO DAILY 03/13/17 03/13/17 Promethazine [Phenergan] 25 mg PO Q6H PRN 03/13/17 03/13/17 Previous Rx's Medication Instructions Recorded Aspirin Enteric Coated [Aspirin EC] 81 mg PO DAILY #30 tablet. 03/24/16 Nitroglycerin 0.4 mg SL Q5MIN PRN #20 tab.subl 02/15/17 Minoxidil 5 mg PO BID #60 tablet 03/14/17 Allergies Allergy/AdvReac Type Severity Reaction Status Date / Time Cephalosporins Allergy Hives Verified 03/13/17 12:45 codeine Allergy Hives Verified 03/13/17 12:45 Sulfa (Sulfonamide Allergy Hives Verified 03/13/17 12:45 Antibiotics) morphine AdvReac Difficulty Verified 03/13/17 12:45 Breathing All systems ED: reviewed and negative except as stated. Constitutional: Denies: fever, chills, weakness, weight change Eyes: Denies: eye pain, eye discharge, vision change ENT ED: Denies: ear pain, throat pain, dental pain, hearing loss, epistaxis, congestion, dysphagia Cardiovascular: Denies: chest pain, palpitations, dyspnea on exertion, edema, syncope Respiratory: Reports: dyspnea. Denies: cough, wheezes, hemoptysis, stridor Gastrointestinal: Reports: nausea, vomiting. Denies: abdominal pain, diarrhea, constipation, hematemesis, melena, hematochezia Genitourinary: Denies: urgency, dysuria, frequency, hematuria Musculoskeletal: Denies: back pain, neck pain, arthralgia, myalgia Integumentary: Denies: rash, abrasion, lesions Neurological: Denies: headache, weakness, numbness, paresthesias, confusion, abnormal gait, vertigo Psychiatric: Denies: anxiety, depression, suicidal thoughts, homicidal thoughts , auditory hallucinations, visual hallucinations Endocrine: Denies: fatigue Hematological/Lymphatic: Denies: easy bleeding, easy bruising Allergic/Immunologic: Denies: facial swelling, urticaria Past Medical History - Past Medical History Medical history: Reports: arthritis, CHF, dialysis, hypertension, pulmonary embolus, renal disease Surgical history: Reports: orthopedic, other (Rt. knee meniscus repair), vascular surgery, other (Kidney transplant in 2003 and removal of the same kidney 2013, end-stage renal disease secondary to obstructive uropathy, left approximately IV fistula with a stent placement, pleurodeses due to left pleural effusion, sinus surgery) Psychiatric history: Reports: anxiety, depression - Social History Smoking Status: Never smoker Smokeless Tobacco Status: No Alcohol use: Reports: none Drug use: Reports: none Physical Exam - General Limitations: no limitations General appearance: alert, in no apparent distress - Head Head exam: atraumatic, normocephalic, normal inspection - Eye Eye exam: Present: normal appearance, PERRL, EOMI - ENT ENT exam: normal exam, normal oropharynx, mucous membranes moist - Neck Neck exam: Present: normal inspection, full ROM, trachea midline - Chest Chest inspection: Present: normal inspection, symmetric chest wall rise - Respiratory Respiratory exam: Present: normal lung sounds bilaterally - Cardiovascular Cardiovascular exam: Present: regular rate, normal rhythm, normal heart sounds - Abdominal Exam Abdominal exam: Present: soft, Non-Tender. Absent: tenderness, distention, guarding, rebound, rigidity - Extremities Exam Extremities exam: Present: normal inspection, full ROM. Absent: tenderness, pedal edema - Expanded Lower Extremity Exam Neurovascular/Tendon exam: Absent: motor deficit, sensory deficit, tendon deficit Gait: not tested/not observed - Back Exam Back exam: Present: normal inspection, full ROM. Absent: tenderness - Neurological Exam Neurological exam: Present: alert, oriented X3 - Psychiatric Psychiatric exam: Present: normal affect, normal mood - Skin Skin exam: Present: warm, dry, intact, normal color Course - Reevaluation(s) Reevaluation #1: Patient and has not been able to take his medications which include narcotics and high blood pressure medicines. He is concerned that he may be in withdrawal. Patient will be admitted for further evaluation and treatment of the nausea vomiting. Time: 12:03 - Consultations Consultation #1: Discussed with , will see in consultation. Time: 14:24 Consultation #2: Discussed with , admit. Time: 14:52 Vital Signs Temperature 99.0 F 04/08/17 11:42 Pulse Rate 65 04/08/17 11:42 Respiratory Rate 16 04/08/17 11:42 Blood Pressure 213/102 04/08/17 11:42 O2 Sat by Pulse Oximetry 98 04/08/17 11:42 Temperature 99.0 F 04/08/17 11:42 Pulse Rate 58 04/08/17 12:57 Respiratory Rate 10 04/08/17 12:57 Blood Pressure 179/99 04/08/17 13:01 O2 Sat by Pulse Oximetry 97 04/08/17 12:57 Oxygen Delivery Oxygen Delivery Room Air Medical Decision Making - Lab Data Lab results reviewed: Yes I reviewed the patient's lab results. Result diagrams: 04/08/17 12:07 04/08/17 12:07 Lab Results 04/08/17 04/08/17 04/08/17 Range/Units 12:07 12:07 12:07 WBC 4.9 (4.3-11.1) K/mcL RBC 3.12 L (4.19-5.50) M/mcL Hgb 9.1 L (12.9-16.9) g/dL Hct 27.5 L (37.5-50.1) % MCV 88.1 (83.0-100.0) fL MCH 29.2 (28.0-33.3) pg MCHC 33.1 (31.6-35.5) g/dL RDW 13.9 (11.5-14.5) % Plt Count 176 (140-400) K/mcL MPV 9.1 L (9.4-12.4) fL Immature Gran % 0.2 (0-4) % Seg Neutrophils % 71.7 % Lymphocytes % 15.3 % Monocytes % 9.3 % Eosinophils % 2.5 % Basophils % 1.0 % Neutrophils # 3.5 (1.6-8.9) K/mcL Lymphocytes # 0.7 (0.6-4.6) K/mcL Monocytes # 0.5 (0.0-1.3) K/mcL Eosinophils # 0.1 (0.0-0.6) K/mcL Basophils # 0.1 (0.0-0.2) K/mcL Sodium 138 (136-145) mEq/L Potassium 3.5 (3.5-5.1) mEq/L Chloride 95 L (98-107) mEq/L Carbon Dioxide 35 H (23-29) mEq/L BUN 20 (6-20) mg/dL Creatinine 4.18 H (0.70-1.30) mg/dL Est GFR ( Amer) 19 L (> 60) Est GFR (Non-Af Amer) 16 L (> 60) BUN/Creatinine Ratio 5 L (6-26) Glucose 98 (70-105) mg/dL Calculated Osmolality 289 (280-300) Lactic Acid 0.7 (0.5-2.2) mmol/L Calcium 8.6 (8.6-10.3) mg/dL Troponin I (< 0.04) ng/mL B-Natriuretic Peptide (Less than 100) pg/mL 04/08/17 04/08/17 04/08/17 Range/Units 12:07 12:07 14:11 WBC (4.3-11.1) K/mcL RBC (4.19-5.50) M/mcL Hgb (12.9-16.9) g/dL Hct (37.5-50.1) % MCV (83.0-100.0) fL MCH (28.0-33.3) pg MCHC (31.6-35.5) g/dL RDW (11.5-14.5) % Plt Count (140-400) K/mcL MPV (9.4-12.4) fL Immature Gran % (0-4) % Seg Neutrophils % % Lymphocytes % % Monocytes % % Eosinophils % % Basophils % % Neutrophils # (1.6-8.9) K/mcL Lymphocytes # (0.6-4.6) K/mcL Monocytes # (0.0-1.3) K/mcL Eosinophils # (0.0-0.6) K/mcL Basophils # (0.0-0.2) K/mcL Sodium (136-145) mEq/L Potassium (3.5-5.1) mEq/L Chloride (98-107) mEq/L Carbon Dioxide (23-29) mEq/L BUN (6-20) mg/dL Creatinine (0.70-1.30) mg/dL Est GFR ( Amer) (> 60) Est GFR (Non-Af Amer) (> 60) BUN/Creatinine Ratio (6-26) Glucose (70-105) mg/dL Calculated Osmolality (280-300) Lactic Acid 0.6 (0.5-2.2) mmol/L Calcium (8.6-10.3) mg/dL Troponin I < 0.03 (< 0.04) ng/mL B-Natriuretic Peptide > 5000 H (Less than 100) pg/mL - Radiology Data Radiology results reviewed: Yes I reviewed the patient's radiology results. Chest X-Ray 04/08/17 11:55 IMPRESSION: Cardiomegaly with mild interstitial pulmonary edema and small left pleural effusions suggesting slight worsening of CHF. D/ / Giovany Willis MD / Giovany Willis MD Interpreting Provider: Giovany Willis MD - EKG Data EKG #1 EKG attestation: Yes I reviewed and interpreted this EKG. EKG shows normal: sinus rhythm Rate: normal Rhythm: NSR When compared to previous EKG there are: no significant changes (03/13/2017) Interpretation: no acute changes
[2017-04-08] MEDS ORDERED: *HR* HYDROmorphone (PF) 1 MG/ML SYRINGE IVP ONE ×2 (12:04→13:36)
[2017-04-08 12:15] LABS: Basophils # 0.1 K/mcL (0.0-0.2); Eosinophils # 0.1 K/mcL (0.0-0.6); Eosinophils % 2.5 %; Hematocrit 27.5 % (37.5-50.1); Hemoglobin 9.1 g/dL (12.9-16.9); Immature Granulocytes % 0.2 % (0-4); Lymphocytes # 0.7 K/mcL (0.6-4.6); Lymphocytes % 15.3 %; Mean Corpuscular HGB Conc 33.1 g/dL (31.6-35.5); Mean Corpuscular Hemoglobin 29.2 pg (28.0-33.3); Mean Corpuscular Volume 88.1 fL (83.0-100.0); Mean Platelet Volume 9.1 fL (9.4-12.4); Monocytes # 0.5 K/mcL (0.0-1.3); Monocytes % 9.3 %; Neutrophils # 3.5 K/mcL (1.6-8.9); Platelet Count 176 K/mcL (140-400); Red Blood Count 3.12 M/mcL (4.19-5.50); Red Cell Distribution Width 13.9 % (11.5-14.5); Segmented Neutrophils % 71.7 %
[2017-04-08 12:29] LABS: Calcium 8.6 mg/dL (8.6-10.3); Potassium 3.5 mEq/L (3.5-5.1)
[2017-04-08] MEDS ORDERED: Ondansetron 4 MG/2 ML VIAL IVP ONE (13:36)
[2017-04-08] MEDS ORDERED: Nitroglycerin 0.4 MG TAB.SUBL SL PRN (17:10)
[2017-04-08] MEDS ORDERED: Acetaminophen 325 MG TABLET PO PRN (17:10)
[2017-04-08] MEDS ORDERED: Naloxone 0.4 MG/ML INJ IVP PRN (17:12)
--- NOTE | 2017-04-08 17:25 | Internal Med History&Physical ---
<Fortino Paulino - Last Filed: 04/08/17 17:26> Date of Encounter: 04/08/17 Time of Encounter: 17:20 Assessment and Plan (1) Viral gastroenteritis Status: Acute Continues to have intractable nausea and vomiting due to viral gastroenteritis - NPO except for meds - We will hold off on IVF at this time as patient's chest x-ray reveals some mild interstitial pulmonary edema - CBCD, BMP in AM - Phenergan 12.5 mg IV q 4 hr PRN N/V is Zofran is helping with nausea - Zofran 4 mg every 6 PRN (2) Nausea & vomiting Status: Acute Intractable nausea and vomiting for the last 2 days. He reports some RLQ abdominal pain/pressure. He denies any coffee groud emisis or bilious vomiting. This is likely a viral gastroenteritis. See plan above. Qualifiers: Vomiting type: unspecified Vomiting Intractability: unspecified Qualified Code(s): R11.2 - Nausea with vomiting, unspecified (3) Hypertensive urgency Status: Acute Patient presents today with hypertensive urgency. SBP in the 180's. He has been unable to take his oral antihypertensives d/t intractable nausea and vomiting. Continue current management with home antihypertensives. Add Hydralazine 10mg IVP q6hrs PRN. Likely exacerbated by fluid overload. The patient may benefit from additional fluid removal with hemodialysis. (4) ESRD (end stage renal disease) Status: Acute History of ESRD. He has a Tuesday and Tuesday hemodialysis patient. He reports his most recent session was this afternoon when she received 3 hours of hemodialysis treatment. EDW may need adjustment given CXR still showing pulmonary edema after todays session. Consult nephrology- Nephrology to see the patient. (5) Ascites Status: Chronic Qualifiers: Ascites type: other type Qualified Code(s): R18.8 - Other ascites (6) CHF (congestive heart failure) Status: Acute Chest x-ray reveals cardiomegaly with mild interstitial pulmonary edema. Patient has history of CHF, and ESRD and is dialysis dependent for fluid removal. Nephrology consulted Qualifiers: Congestive heart failure type: unspecified congestive heart failure type Congestive heart failure chronicity: acute on chronic Qualified Code(s): I50.9 - Heart failure, unspecified (7) DVT prophylaxis Status: Acute Heparin 5000 units subcutaneous twice a day Internal Medicine - H&P: HPI Chief complaint: Shortness of breath, nausea and vomiting Admitted From: Home Plans for Post Hospital Care: Home History of present illness: Mr. Mendez is a 41 year old male with PMH of arthritis, CHF, HTN, PVD, anxiety, depression and ESRD who presents today with increasing shortness of breath and nausea and vomiting. He reports that he began experiencing shortness of breath 2 days ago and has been progressively getting worse since. Additionally is reporting nausea and vomiting. He denies any chest pain, palpitations, tachycardia, hematemesis. The patient is dialysis dependent and reports that he is compliant with his dialysis regimen. Last dialysis was started after noon for a three-hour session. Chest x-ray shows cardiomegaly with interstitial pulmonary edema and small left pleural effusion suggestive of worsening CHF. Past Med Surg Social Fam HX - Past Medical History Medical history: arthritis, CHF, dialysis, hypertension, pulmonary embolus, renal disease Psychiatric history: anxiety, depression - Past Surgical History Surgical History: orthopedic, other (Rt. 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, left approximately IV fistula with a stent placement, pleurodeses due to left pleural effusion, sinus surgery) - Social History Smoking Status: Never smoker Smokeless Tobacco Status: No Alcohol use: none Drug use: none - Family History Brother Family Member Ethnicity: Non- Living Status: Still Living Sister Family Member Ethnicity: Non- Living Status: Still Living Father Family Member Ethnicity: Non- Living Status: Still Living Hx Family Cardiac Disorders: No Hx Family Respiratory Disorders: No Hx Family Cancer: No Hx Family GI Disorders: No Hx Family Endocrine Disorder: No Hx Family Neuromuscular Disorders: No Hx Family Neurologic Disorders: No Hx Family HEENT Disorders: No Hx Family Autoimmune Disorders: No Mother Adopted: No Family Member Ethnicity: Non- Living Status: Hx Family Cardiac Disorders: No Hx Family Respiratory Disorders: Yes (COPD, emphysema) Hx Family Cancer: No Hx Family GI Disorders: No Hx Family Endocrine Disorder: No Hx Family Neuromuscular Disorders: No Hx Family Neurologic Disorders: No Hx Family HEENT Disorders: No Hx Family Autoimmune Disorders: No Internal Medicine - H&P: Meds Calcium Acetate [Phos-LO] 1,334 mg PO TIDWM 05/12/15 [History] cloNIDine HCl [Clonidine HCl] 0.2 mg PO TID 05/12/15 [History] Sertraline [Zoloft] 100 mg PO HS 01/22/16 [History] Renal Vitamin [Renal Caps Softgel] 1 mg PO DAILY 03/22/16 [History] Aspirin Enteric Coated [Aspirin EC] 81 mg PO DAILY #30 tablet.dr 03/24/16 [Rx] Nitroglycerin 0.4 mg SL Q5MIN PRN #20 tab.subl 02/15/17 [Rx] Acetaminophen [Tylenol] 650 mg PO Q4H PRN 03/13/17 [History] Amlodipine Besylate 10 mg PO DAILY 03/13/17 [History] Carvedilol [Coreg] 25 mg PO BID 03/13/17 [History] Hydralazine HCl 100 mg PO TID 03/13/17 [History] Isosorbide MONOnitrate (24 HR) [Imdur] 30 mg PO DAILY 03/13/17 [History] Lisinopril [Zestril] 20 mg PO DAILY 03/13/17 [History] Promethazine [Phenergan] 25 mg PO Q6H PRN 03/13/17 [History] Minoxidil 5 mg PO BID #60 tablet 03/14/17 [Rx] Oxymorphone HCl [Oxymorphone HCl ER] 30 mg PO Q8H 04/08/17 [History] 3 Allergy/AdvReac Type Severity Reaction Status Date / Time Cephalosporins Allergy Hives Verified 03/13/17 12:45 codeine Allergy Hives Verified 03/13/17 12:45 Sulfa (Sulfonamide Allergy Hives Verified 03/13/17 12:45 Antibiotics) morphine AdvReac Difficulty Verified 03/13/17 12:45 Breathing All Systems PM: A 10-system review of systems was performed and is negative for pertinent findings except as documented above in the HPI. - Constitutional Constitutional: no chills, no fever(s), no night sweats - EENT Eyes: no change in vision, no discharge, no pain, no photophobia Ears: no ear discharge, no ear pain, no tinnitus Nose, mouth and throat: no dysphagia, no nasal discharge, no neck pain, no sore throat - Cardiovascular Cardiovascular ROS IM: no chest pain, no diaphoresis, no dyspnea, no lightheadedness, no palpitations, no syncope - Respiratory Respiratory: cough (Nonproductive), dyspnea, no wheezing, no pain on inspiration , no chest congestion, no excessive phlegm production, no change in phlegm color , no pain with cough - Gastrointestinal Gastrointestinal: nausea, vomiting, no abdominal pain, no coffee ground emesis, no diarrhea, no hematemesis, no hematochezia, no melena - Musculoskeletal Musculoskeletal ROS IM: no numbness, no tingling - Integumentary Integumentary IM: no rash, no unusual bruising - Neurological Neurological ROS: no confusion, no convulsions, no focal weakness, no numbness, no tingling, no tremor(s) - Hematologic/Lymphatic Hematologic/Lymphatic: no easy bruising - Constitutional Vitals: Temp Pulse Resp BP Pulse Ox 97.8 F 54 16 180/94 98 04/08/17 16:50 04/08/17 16:50 04/08/17 16:50 04/08/17 16:50 04/08/17 16:50 General appearance: Present: cooperative, A&O X 3, no acute distress, answers questions appropriately - Neck Neck exam general surgery: Present: supple, trachea midline. Absent: lymphadenopathy - Respiratory Respiratory exam: Present: CTAB. Absent: accessory muscle use, rales, rhonchi, wheezes - Cardiovascular Cardiovascular exam: Present: RRR, +S1, +S2. Absent: diastolic murmur, gallop, rubs, systolic murmur - GI/Abdominal GI/Abdominal exam: Present: distended, firm, rigid (Righ Lower quadrant), tenderness (Right lower quadrant). Absent: guarding Internal Med - H&P Results - Labs CBC & Chem 7: 04/08/17 12:07 04/08/17 12:07 - Impressions ITS Impressions Abdomen/Pelvis CT 04/08/17 15:57 IMPRESSION: Abdominopelvic ascites. Kidneys are not identified. There is no identifiable sizable transplanted kidney in the pelvis. Right pleural effusion. Mild diffuse subcutaneous edema. No bowel obstruction is noted. Heart is enlarged. D/ / 04/08/2017 16:58:55 Meghna Osorio MD / earnold Interpreting Provider: Meghna Osorio MD - Diagnostic Studies Chest x-ray Status: image reviewed by me Additional comments: Cardiomegaly with mild interstitial pulmonary edema and small left pleural effusion status and worsening CHF CT scan - abdomen Status: image reviewed by me Additional comments: Abdominopelvic ascites. Kidneys are not identified. There is no identifiable sizable transplanted kidney in the pelvis. Right pleural effusion. Mild diffuse subcutaneous edema. No bowel obstruction is noted. Heart is enlarged. <Jazmine Gonzalez - Last Filed: 05/06/17 09:33> Date of Encounter: 05/06/17 Internal Medicine - H&P: HPI History of present illness: Mr. Mendez is a 41 year old male All Systems PM: A 10-system review of systems was performed and is negative for pertinent findings except as documented above in the HPI. - Constitutional Vitals: Temp Pulse Resp BP Pulse Ox 98.3 F 72 16 122/65 94 04/11/17 10:34 04/11/17 10:34 04/11/17 10:34 04/11/17 10:34 04/11/17 10:34 Internal Med - H&P Results - Labs CBC & Chem 7: 04/10/17 06:52 04/10/17 06:52 - Impressions ITS Impressions Abdomen/Pelvis CT 04/08/17 15:57 IMPRESSION: Abdominopelvic ascites. Kidneys are not identified. There is no identifiable sizable transplanted kidney in the pelvis. Right pleural effusion. Mild diffuse subcutaneous edema. No bowel obstruction is noted. Heart is enlarged. D/ / 04/08/2017 16:58:55 Meghna Osorio MD / earnold Interpreting Provider: Meghna Osorio MD - Attending Attestation I personally and independently interviewed and examined the patient with [employer] IMMUNOLOGY CHIEF, and I reviewed the patient's medical record with her. I am in agreement with the assessment and proposed treatment plan. I discussed my findings and recommendation with the patient and answer all questions. The patient's medical records were edited to accurately reflect this encounter.
[2017-04-08] MEDS: Ondansetron ODT 4 MG TAB.RAPDIS SL SCH ×2 (18:13→23:26)
[2017-04-08] MEDS: *HR* Heparin 5,000 UNIT/ML VIAL SQ SCH (18:14)
[2017-04-08] MEDS: *HR* HYDROmorphone (PF) 1 MG/ML SYRINGE IVP PRN ×2 (18:14→23:25)
[2017-04-08] MEDS: cloNIDine HCl 0.1 MG TABLET PO SCH (20:04)
[2017-04-08] MEDS: hydrALAZINE 25 MG TABLET PO SCH (20:05)
[2017-04-09] MEDS: *HR* Promethazine 25 MG/ML VIAL IVP PRN ×3 (00:28→15:42)
[2017-04-09] MEDS: *HR* HYDROmorphone (PF) 1 MG/ML SYRINGE IVP PRN ×5 (03:35→21:27)
[2017-04-09 04:17] LABS: Hematocrit 23.2 % (37.5-50.1); Mean Corpuscular HGB Conc 31.9 g/dL (31.6-35.5); Mean Corpuscular Hemoglobin 28.9 pg (28.0-33.3); Mean Corpuscular Volume 90.6 fL (83.0-100.0); Mean Platelet Volume 9.9 fL (9.4-12.4); Platelet Count 158 K/mcL (140-400); Red Blood Count 2.56 M/mcL (4.19-5.50); Red Cell Distribution Width 13.8 % (11.5-14.5)
[2017-04-09 04:30] LABS: Hemoglobin 7.4 g/dL (12.9-16.9)
[2017-04-09 04:35] LABS: Potassium 3.7 mEq/L (3.5-5.1)
[2017-04-09 05:04] LABS: Calcium 8.3 mg/dL (8.6-10.3)
[2017-04-09] MEDS: *HR* Heparin 5,000 UNIT/ML VIAL SQ SCH ×2 (05:58→17:17)
[2017-04-09] MEDS: Ondansetron ODT 4 MG TAB.RAPDIS SL SCH ×4 (05:58→21:28)
--- NOTE | 2017-04-09 08:38 | Electrocardiograph Report ---
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
[2017-04-09] MEDS: hydrALAZINE 25 MG TABLET PO SCH ×3 (09:05→21:28)
[2017-04-09] MEDS: cloNIDine HCl 0.1 MG TABLET PO SCH ×3 (09:05→21:29)
[2017-04-09] MEDS: Lisinopril 20 MG TABLET PO SCH (09:06)
[2017-04-09] MEDS: Renal Vitamin 1 MG CAPSULE PO SCH (09:06)
[2017-04-09] MEDS: amLODIPine 5 MG TABLET PO SCH (09:06)
[2017-04-09] MEDS: Isosorbide MONOnitrate (24 HR) 30 MG TAB.ER.24H PO SCH (09:06)
[2017-04-09] MEDS: Calcium Acetate 667 MG CAPSULE PO SCH ×3 (09:06→17:18)
[2017-04-09] MEDS: Aspirin Enteric Coated 81 MG Tablet PO SCH (09:06)
--- NOTE | 2017-04-09 09:26 | Nephrology Consult Note ---
Date of Encounter: 04/09/17 Time of Encounter: 08:30 Assessment and Plan (1) ESRD (end stage renal disease) on dialysis Current Visit: No Status: Chronic Fluid overload on CXR, orthopnea. Will do UF today for fluid removal. History of Present Illness - Reason for Consult end stage renal disease - History of Present Illness Mr. Terry is a 41 year old male with ESRD who dialyzes in [facility], last diaylsis Tuesday. Other PMH- arthritis, CHF, dialysis, hypertension, pulmonary embolus, orthopedic, (Rt. knee meniscus repair), vascular surgery, Kidney transplant in 2003 and removal of the same kidney 2013, end-stage renal disease secondary to obstructive uropathy, left AV fistula with a stent placement, pleurodeses due to left pleural effusion, sinus surgery, anxiety, depression. Mr. Terry presented to ER with shortness of breath and nausea with vomiting for past threee days. He states he had not been able to keep medication down. CXR showed some mild interstitial pulmonary edema. This morning he is sitting on edge of bed, states he is unable to lay down due to breathing difficulties. He states he has been able to keep medications down today. Past Med Surg Social Fam HX - Past Medical History Medical history: arthritis, CHF, dialysis, hypertension, pulmonary embolus, renal disease Psychiatric history: anxiety, depression - Past Surgical History Surgical History: orthopedic, other (Rt. 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, left approximately IV fistula with a stent placement, pleurodeses due to left pleural effusion, sinus surgery) - Social History Smoking Status: Never smoker Smokeless Tobacco Status: No Alcohol use: none Drug use: none - Family History Brother Family Member Ethnicity: Non- Living Status: Still Living Sister Family Member Ethnicity: Non- Living Status: Still Living Father Family Member Ethnicity: Non- Living Status: Still Living Hx Family Cardiac Disorders: No Hx Family Respiratory Disorders: No Hx Family Cancer: No Hx Family GI Disorders: No Hx Family Endocrine Disorder: No Hx Family Neuromuscular Disorders: No Hx Family Neurologic Disorders: No Hx Family HEENT Disorders: No Hx Family Autoimmune Disorders: No Mother Adopted: No Family Member Ethnicity: Non- Living Status: Hx Family Cardiac Disorders: No Hx Family Respiratory Disorders: Yes (COPD, emphysema) Hx Family Cancer: No Hx Family GI Disorders: No Hx Family Endocrine Disorder: No Hx Family Neuromuscular Disorders: No Hx Family Neurologic Disorders: No Hx Family HEENT Disorders: No Hx Family Autoimmune Disorders: No Medications and Allergies Calcium Acetate [Phos-LO] 1,334 mg PO TIDWM 05/12/15 [History] cloNIDine HCl [Clonidine HCl] 0.2 mg PO TID 05/12/15 [History] Sertraline [Zoloft] 100 mg PO HS 01/22/16 [History] Renal Vitamin [Renal Caps Softgel] 1 mg PO DAILY 03/22/16 [History] Aspirin Enteric Coated [Aspirin EC] 81 mg PO DAILY #30 tablet.dr 03/24/16 [Rx] Nitroglycerin 0.4 mg SL Q5MIN PRN #20 tab.subl 02/15/17 [Rx] Acetaminophen [Tylenol] 650 mg PO Q4H PRN 03/13/17 [History] Amlodipine Besylate 10 mg PO DAILY 03/13/17 [History] Carvedilol [Coreg] 25 mg PO BID 03/13/17 [History] Hydralazine HCl 100 mg PO TID 03/13/17 [History] Isosorbide MONOnitrate (24 HR) [Imdur] 30 mg PO DAILY 03/13/17 [History] Lisinopril [Zestril] 20 mg PO DAILY 03/13/17 [History] Promethazine [Phenergan] 25 mg PO Q6H PRN 03/13/17 [History] Minoxidil 5 mg PO BID #60 tablet 03/14/17 [Rx] Oxymorphone HCl [Oxymorphone HCl ER] 30 mg PO Q8H 04/08/17 [History] 3 Allergy/AdvReac Type Severity Reaction Status Date / Time Cephalosporins Allergy Hives Verified 03/13/17 12:45 codeine Allergy Hives Verified 03/13/17 12:45 Sulfa (Sulfonamide Allergy Hives Verified 03/13/17 12:45 Antibiotics) morphine AdvReac Difficulty Verified 03/13/17 12:45 Breathing Review of Systems All Systems: reviewed and no additional remarkable complaints except as stated Exam - Vital Signs Vital signs: Initial Vital Signs Temp Pulse Resp BP Pulse Ox 99.0 F 65 16 213/102 98 04/08/17 11:42 04/08/17 11:42 04/08/17 11:42 04/08/17 11:42 04/08/17 11:42 Vital Signs - Last 8 Hours Temp Pulse Resp BP Pulse Ox 04/09/17 08:23 98.4 F 64 16 142/80 94 04/09/17 05:06 98.1 F 57 15 140/83 93 Intake and Output 04/08/17 04/09/17 04/09/17 23:59 07:59 15:59 Other: # Voids 1 1 Weight 62 kg Patient Weight 04/09/17 23:59 Weight 62 kg - General Appearance General appearance: well-developed, well-nourished, appears started age EENT: mucous membranes moist Neck: no JVD, no carotid bruit Respiratory: clear Cardiology: regular rate, regular rhythm Gastrointestinal: normoactive bowel sounds, no tenderness Integumentary: warm and dry Neurologic: alert and oriented x3 Results - Lab Results 04/09/17 02:41 04/09/17 02:41 Most recent lab results Calcium 8.3 mg/dL (8.6-10.3) L 04/09/17 02:41 Consult Discharge Plan - Plan Referrals: NONE,PCP [Primary Care Provider] -
[2017-04-09] MEDS ORDERED: 0.9 % Sodium Chloride 250 ML IVC PRN (09:55)
[2017-04-09] MEDS ORDERED: 0.9 % Sodium Chloride 1,000 ML PRIME SCH (10:00)
[2017-04-09 11:08] LABS: Hepatitis B Surface Antigen Nonreactive (Nonreactive)
--- NOTE | 2017-04-09 12:25 | Internal Med Progress Note ---
Date of Encounter: 04/09/17 Time of Encounter: 12:05 - Assessment and plan (1) ESRD (end stage renal disease) Current Visit: Yes Status: Chronic Assessment and plan: Continue HD per schedule (2) DVT prophylaxis Current Visit: Yes Status: Acute Assessment and plan: Heaprin SQ (3) HTN (hypertension) Current Visit: Yes Status: Chronic Assessment and plan: Uncontrolled on admission, better controlled now, continue home meds Qualifiers: Hypertension type: unspecified Qualified Code(s): I10 - Essential (primary ) hypertension (4) Viral gastroenteritis Current Visit: Yes Status: Acute Assessment and plan: Continue supportive care - Subjective Interval history: Seen and examined at [facility] 41M with ESRD on HD, HTN Admitted for HTN Urgency and gastroenteritis No new complains Blood pressure better controlled Patient says he is still sick to his stomach - Constitutional Vitals: Temp Pulse Resp BP Pulse Ox 99.7 F H 64 16 122/71 96 04/09/17 10:35 04/09/17 10:35 04/09/17 10:35 04/09/17 10:35 04/09/17 10:35 General appearance: Present: cooperative, A&O X 3, no acute distress, answers questions appropriately - Head Head exam: Present: atraumatic, normocephalic - Eye Eye exam: Present: PERRL, conjuntiva pink, sclera anicteric Pupils: Present: PERRL - Neck Neck exam general surgery: Present: supple, trachea midline. Absent: lymphadenopathy - Respiratory Respiratory exam: Present: CTAB. Absent: accessory muscle use, rales, rhonchi, wheezes - Cardiovascular Cardiovascular exam: Present: RRR, +S1, +S2. Absent: diastolic murmur, gallop, rubs, systolic murmur - GI/Abdominal GI/Abdominal exam: Present: normal bowel sounds, soft, no peritoneal signs. Absent: distended, tenderness - Extremities Exam Extremities exam: Present: warm, radial pulses palpable and symmetrical. Absent : calf tenderness, cyanotic, pedal edema - Neurological Exam Neurological exam: Present: alert, CN II-XII intact, oriented X3, no focal deficits. Absent: pronater drift, facial droop, speech deficit - Skin Skin exam: Present: dry, intact Internal Medicine: Result - Labs CBC & Chem 7: 04/09/17 02:41 04/09/17 02:41 Labs: Short CBC 04/09/17 Range/Units 02:41 WBC 3.7 L (4.3-11.1) K/mcL Hgb 7.4 L D (12.9-16.9) g/dL Hct 23.2 L (37.5-50.1) % Plt Count 158 (140-400) K/mcL BMP 04/09/17 02:41 Sodium 137 Potassium 3.7 Chloride 97 L Carbon Dioxide 31 H BUN 28 H Creatinine 5.21 H Glucose 86 Calcium 8.3 L - Impressions Impressions Abdomen/Pelvis CT 04/08/17 15:57 IMPRESSION: Abdominopelvic ascites. Kidneys are not identified. There is no identifiable sizable transplanted kidney in the pelvis. Right pleural effusion. Mild diffuse subcutaneous edema. No bowel obstruction is noted. Heart is enlarged. D/ / 04/08/2017 16:58:55 Meghna Osorio MD / guido Interpreting Provider: Meghna Osorio MD Consult Discharge Plan - Plan Referrals: NONE,PCP [Primary Care Provider] -
[2017-04-10] MEDS: *HR* Promethazine 25 MG/ML VIAL IVP PRN ×2 (00:20→07:46)
[2017-04-10] MEDS: *HR* HYDROmorphone (PF) 1 MG/ML SYRINGE IVP PRN ×3 (01:41→11:05)
[2017-04-10] MEDS: *HR* Heparin 5,000 UNIT/ML VIAL SQ SCH ×2 (05:51→18:07)
[2017-04-10] MEDS: Ondansetron ODT 4 MG TAB.RAPDIS SL SCH ×3 (05:51→18:04)
[2017-04-10 07:08] LABS: Eosinophils # 0.1 K/mcL (0.0-0.6); Hematocrit 23.9 % (37.5-50.1); Immature Granulocytes % 0.3 % (0-4); Lymphocytes # 0.8 K/mcL (0.6-4.6); Lymphocytes % 19.5 %; Mean Corpuscular HGB Conc 33.5 g/dL (31.6-35.5); Mean Corpuscular Hemoglobin 29.5 pg (28.0-33.3); Mean Corpuscular Volume 88.2 fL (83.0-100.0); Mean Platelet Volume 9.8 fL (9.4-12.4); Monocytes # 0.5 K/mcL (0.0-1.3); Monocytes % 12.3 %; Neutrophils # 2.6 K/mcL (1.6-8.9); Platelet Count 161 K/mcL (140-400); Red Blood Count 2.71 M/mcL (4.19-5.50); Red Cell Distribution Width 13.9 % (11.5-14.5); Segmented Neutrophils % 63.9 %
[2017-04-10 07:36] LABS: Calcium 7.8 mg/dL (8.6-10.3)
[2017-04-10] MEDS: hydrALAZINE 25 MG TABLET PO SCH ×3 (07:43→20:05)
[2017-04-10] MEDS: Lisinopril 20 MG TABLET PO SCH (07:44)
[2017-04-10] MEDS: Calcium Acetate 667 MG CAPSULE PO SCH ×3 (07:44→16:17)
[2017-04-10] MEDS: Aspirin Enteric Coated 81 MG Tablet PO SCH (07:45)
[2017-04-10] MEDS: Isosorbide MONOnitrate (24 HR) 30 MG TAB.ER.24H PO SCH (07:45)
[2017-04-10] MEDS: cloNIDine HCl 0.1 MG TABLET PO SCH ×3 (07:45→20:05)
[2017-04-10] MEDS: amLODIPine 5 MG TABLET PO SCH (07:45)
[2017-04-10] MEDS: Renal Vitamin 1 MG CAPSULE PO SCH (07:45)
--- NOTE | 2017-04-10 09:10 | Nephrology Progress Note ---
Date of Encounter: 04/10/17 Time of Encounter: 08:55 - Assessment and Plan (1) ESRD (end stage renal disease) on dialysis Current Visit: No Status: Chronic Had UF yesterday with improvement in respiratory status.. Will do HD tomorrow , keeping MWF schedule. Subjective Interval history: Admits some nausea, but states able to keep meds down. States breathing easier, following UF yesterday. Able to lay down. Objective - Vital Signs Vital signs: Vital Signs Temp Pulse Resp BP Pulse Ox 04/10/17 06:42 98.1 F 64 15 117/68 94 04/10/17 04:17 98.0 F 63 14 105/45 95 04/10/17 00:19 98.2 F 61 16 93/52 95 04/09/17 19:27 98.3 F 60 16 107/58 95 04/09/17 15:13 98.1 F 62 16 107/46 94 04/09/17 14:36 97.3 F L 18 103/57 04/09/17 13:40 99/47 04/09/17 13:25 101/58 04/09/17 13:10 104/54 04/09/17 12:55 108/57 04/09/17 12:40 105/60 04/09/17 12:25 116/58 04/09/17 12:10 107/57 04/09/17 11:55 114/62 04/09/17 11:40 98.4 F 18 114/66 04/09/17 10:35 99.7 F H 64 16 122/71 96 Intake and Output 04/09/17 04/10/17 04/10/17 23:59 07:59 15:59 Intake Total 120 / 120 Output Total 0 / 0 Balance 120 / 120 Intake: Oral 120 / 120 Output: Urine 0 / 0 Other: # Voids 1 Weight 57.9 kg Patient Weight 04/10/17 23:59 Weight 57.9 kg - General Appearance General appearance: Present: well-developed, well-nourished, appears started age EENT: Present: mucous membranes moist Neck: Present: no JVD Respiratory: Present: clear Cardiology: Present: no edema, regular rate, regular rhythm Gastrointestinal: Present: normoactive bowel sounds, no tenderness Integumentary: Present: warm and dry Neurologic: Present: alert and oriented x3 - Lab 04/10/17 06:52 04/10/17 06:52 Most recent lab results Calcium 7.8 mg/dL (8.6-10.3) L 04/10/17 06:52 Consult Discharge Plan - Plan Referrals: NONE,PCP [Primary Care Provider] -
[2017-04-10] MEDS ORDERED: OXYMORPHONE HCL 30 MG PO SCH (11:30)
--- NOTE | 2017-04-10 13:16 | Internal Med Progress Note ---
Date of Encounter: 04/10/17 Time of Encounter: 13:15 - Assessment and plan (1) ESRD (end stage renal disease) Current Visit: Yes Status: Chronic Assessment and plan: Continue HD per schedule (2) DVT prophylaxis Current Visit: Yes Status: Acute Assessment and plan: Heaprin SQ (3) HTN (hypertension) Current Visit: Yes Status: Chronic Assessment and plan: Uncontrolled on admission, better controlled now, continue home meds Qualifiers: Hypertension type: unspecified Qualified Code(s): I10 - Essential (primary ) hypertension (4) Viral gastroenteritis Current Visit: Yes Status: Resolved Assessment and plan: Continue supportive care - Subjective Interval history: Seen and examined at [facility] 41M with ESRD on HD, HTN Admitted for HTN Urgency and gastroenteritis No new complains Blood pressure better controlled Per renal, patient can be discharged after HD a.m He has been receiving pain meds RTC D/C IV pain meds and switch to po Medically stable- we will advance his diet - Constitutional Vitals: Temp Pulse Resp BP Pulse Ox 98.7 F 74 15 111/62 97 04/10/17 12:14 04/10/17 12:14 04/10/17 12:14 04/10/17 12:14 04/10/17 12:14 General appearance: Present: cooperative, A&O X 3, no acute distress, answers questions appropriately - Head Head exam: Present: atraumatic, normocephalic - Eye Eye exam: Present: PERRL, conjuntiva pink, sclera anicteric Pupils: Present: PERRL - Neck Neck exam general surgery: Present: supple, trachea midline. Absent: lymphadenopathy - Respiratory Respiratory exam: Present: CTAB. Absent: accessory muscle use, rales, rhonchi, wheezes - Cardiovascular Cardiovascular exam: Present: RRR, +S1, +S2. Absent: diastolic murmur, gallop, rubs, systolic murmur - GI/Abdominal GI/Abdominal exam: Present: normal bowel sounds, soft, no peritoneal signs. Absent: distended, tenderness - Extremities Exam Extremities exam: Present: warm, radial pulses palpable and symmetrical. Absent : calf tenderness, cyanotic, pedal edema - Neurological Exam Neurological exam: Present: alert, CN II-XII intact, oriented X3, no focal deficits. Absent: pronater drift, facial droop, speech deficit - Skin Skin exam: Present: dry, intact Internal Medicine: Result - Labs CBC & Chem 7: 04/10/17 06:52 04/10/17 06:52 Labs: Short CBC 04/10/17 Range/Units 06:52 WBC 4.0 L (4.3-11.1) K/mcL Hgb 8.0 L (12.9-16.9) g/dL Hct 23.9 L (37.5-50.1) % Plt Count 161 (140-400) K/mcL Neutrophils # 2.6 (1.6-8.9) K/mcL BMP 04/10/17 06:52 Sodium 135 L Potassium 4.0 Chloride 94 L Carbon Dioxide 30 H BUN 42 H Creatinine 7.04 H Glucose 85 Calcium 7.8 L Consult Discharge Plan - Plan Referrals: NONE,PCP [Primary Care Provider] -
[2017-04-10] MEDS: *HR* HYDROmorphone 2 MG TABLET PO PRN ×2 (15:14→20:04)
[2017-04-10] MEDS ORDERED: Ondansetron 4 MG/2 ML VIAL IVP ONE (17:37)
[2017-04-10] MEDS ORDERED: *HR* HYDROmorphone (PF) 1 MG/ML SYRINGE IVP ONE ×2 (21:47→22:01)
[2017-04-11] MEDS ORDERED: *HR* HYDROmorphone 2 MG/ML SYRINGE IVP ONE (05:24)
[2017-04-11] MEDS: *HR* Heparin 5,000 UNIT/ML VIAL SQ SCH (05:29)
[2017-04-11] MEDS: Ondansetron ODT 4 MG TAB.RAPDIS SL SCH ×3 (05:30→11:38)
--- NOTE | 2017-04-11 07:40 | Nephrology Progress Note ---
Date of Encounter: 04/11/17 Time of Encounter: 07:38 - Assessment and Plan (1) ESRD (end stage renal disease) on dialysis Current Visit: No Status: Chronic The patient will undergo dialysis today. His blood pressures well controlled. Volume status appears to be fairly well controlled as well. He is anemic and this may explain at least some of his dyspnea. He will be started on Aranesp. (2) Anemia in chronic kidney disease (CKD) Current Visit: Yes Status: Acute Qualifiers: Chronic kidney disease stage: on chronic dialysis Qualified Code(s): N18.6 - End stage renal disease; D63.1 - Anemia in chronic kidney disease; D63.1 - Anemia in chronic kidney disease; Z99.2 - Dependence on renal dialysis; Z99.2 - Dependence on renal dialysis; Z99.2 - Dependence on renal dialysis; Z99.2 - Dependence on renal dialysis (3) Hypertension Current Visit: No Status: Chronic Qualifiers: Hypertension type: unspecified secondary hypertension Qualified Code(s): I15.9 - Secondary hypertension, unspecified; I15 - Secondary hypertension Subjective Interval history: The patient reports his nausea and vomiting are better. He continues to experience shortness of breath. He also has orthopnea. He is scheduled for his usual dialysis today. Objective - Vital Signs Vital signs: Vital Signs Temp Pulse Resp BP Pulse Ox 04/11/17 04:49 98.2 F 65 12 148/84 98 04/10/17 22:31 98.2 F 69 14 132/76 97 04/10/17 19:27 98.3 F 63 12 117/61 98 04/10/17 15:48 97.9 F 61 16 119/66 98 04/10/17 12:14 98.7 F 74 15 111/62 97 Intake and Output 04/10/17 04/10/17 04/11/17 15:59 23:59 07:59 Intake Total 580 / 580 240 / 240 Balance 580 / 580 240 / 240 Intake: Oral 580 / 580 240 / 240 Other: Meal Lunch Dinner Percent of Meal Consumed 50% 50% Weight 57.6 kg Patient Weight 04/11/17 23:59 Weight 57.6 kg - General Appearance Exam: Patient is alert and oriented. He is in no acute distress. Lungs bibasilar rales. Heart regular rate and rhythm with a 2/6 systolic ejection murmur. Abdomen is benign. There is no peripheral edema. There is a functioning AV access in the left upper extremity. - Lab 04/10/17 06:52 04/10/17 06:52 Most recent lab results Calcium 7.8 mg/dL (8.6-10.3) L 04/10/17 06:52 Consult Discharge Plan - Plan Referrals: NONE,PCP [Primary Care Provider] -
[2017-04-11] MEDS ORDERED: 0.9 % Sodium Chloride 250 ML IVC PRN (07:42)
[2017-04-11] MEDS ORDERED: Darbepoetin 100 MCG/0.5 ML SYRINGE SQ SCH (07:45)
[2017-04-11 08:28] LABS: Hepatitis B Surface Antibody 0.45 mIU/mL
[2017-04-11] MEDS: Isosorbide MONOnitrate (24 HR) 30 MG TAB.ER.24H PO SCH (09:24)
[2017-04-11] MEDS: Aspirin Enteric Coated 81 MG Tablet PO SCH (09:24)
[2017-04-11] MEDS: Calcium Acetate 667 MG CAPSULE PO SCH ×2 (09:25→11:37)
[2017-04-11] MEDS: hydrALAZINE 25 MG TABLET PO SCH (09:26)
[2017-04-11] MEDS: amLODIPine 5 MG TABLET PO SCH (09:26)
[2017-04-11] MEDS: cloNIDine HCl 0.1 MG TABLET PO SCH (09:26)
[2017-04-11] MEDS: Renal Vitamin 1 MG CAPSULE PO SCH (09:26)
[2017-04-11] MEDS: Lisinopril 20 MG TABLET PO SCH (09:26)
[2017-04-11] MEDS: *HR* HYDROmorphone 2 MG TABLET PO PRN (09:27)
[2017-04-11 09:37] LABS: % Iron Saturation 55 % (20-55); Iron 111 mcg/dL (65-175); Transferrin 144 mg/dL (203-362)
[2017-04-11 10:37] VITALS: BP 122/65
--- NOTE | 2017-04-11 11:21 | Discharge Summary ---
Date of Encounter: 04/11/17 Time of Encounter: 09:50 - Discharge Diagnosis (1) ESRD (end stage renal disease) Priority: Secondary Status: Chronic (2) DVT prophylaxis Priority: Primary Status: Acute (3) HTN (hypertension) Priority: Secondary Status: Chronic Qualifiers: Hypertension type: unspecified Qualified Code(s): I10 - Essential (primary ) hypertension (4) Viral gastroenteritis Priority: Primary Status: Resolved - Discharge Medications Home Medications: Calcium Acetate [Phos-LO] 1,334 mg PO TIDWM 05/12/15 [History] cloNIDine HCl [Clonidine HCl] 0.2 mg PO TID 05/12/15 [History] Sertraline [Zoloft] 100 mg PO HS 01/22/16 [History] Renal Vitamin [Renal Caps Softgel] 1 mg PO DAILY 03/22/16 [History] Aspirin Enteric Coated [Aspirin EC] 81 mg PO DAILY #30 tablet. 03/24/16 [Rx] Nitroglycerin 0.4 mg SL Q5MIN PRN #20 tab.subl 02/15/17 [Rx] Acetaminophen [Tylenol] 650 mg PO Q4H PRN 03/13/17 [History] Amlodipine Besylate 10 mg PO DAILY 03/13/17 [History] Carvedilol [Coreg] 25 mg PO BID 03/13/17 [History] Hydralazine HCl 100 mg PO TID 03/13/17 [History] Isosorbide MONOnitrate (24 HR) [Imdur] 30 mg PO DAILY 03/13/17 [History] Lisinopril [Zestril] 20 mg PO DAILY 03/13/17 [History] Promethazine [Phenergan] 25 mg PO Q6H PRN 03/13/17 [History] Minoxidil 5 mg PO BID #60 tablet 03/14/17 [Rx] Oxymorphone HCl [Oxymorphone HCl ER] 30 mg PO Q8H 04/08/17 [History] Allergies/Adverse Reactions: 3 Allergy/AdvReac Type Severity Reaction Status Date / Time Cephalosporins Allergy Hives Verified 03/13/17 12:45 codeine Allergy Hives Verified 03/13/17 12:45 Sulfa (Sulfonamide Allergy Hives Verified 03/13/17 12:45 Antibiotics) morphine AdvReac Difficulty Verified 03/13/17 12:45 Breathing Procedures/tests Complete & Pending: Procedures Performed prior 72 hours Category Date Time Status CT abd pelvis wo no iv no oral [CT] Stat Cat Scan 04/08/17 15:57 Completed Date of admission: 04/08/17 15:02 Primary care physician: PCP SANTOSH Consults: 04/11/17 07:45 Consult to Dialysis [CONS] ONCE 04/09/17 10:00 Consult to Dialysis [CONS] ONCE Discharging clinician: Ranjit Lewis Anticipated date of discharge: 04/11/17 - Patient Status Disposition: Left Against Medical Advice Condition: Good Functional capacity at discharge: independent ambulation Overall status at discharge: patient is back to baseline - Discharge Instructions Instructions: Gastritis (DC), Diet for Ulcers and Gastritis (GEN), Chronic Hypertension (DC) Follow Up With: NONE,PCP [Primary Care Provider] - - Diet and Activity Activity: resume usual activities as tolerated Diet: low fat, low cholesterol, low salt diet Interval History: See below Hospital course: Mr. Mendez is a 41 year old male with ESRD on HD, HTN, Chronic pain , opiate dependent He is admitted to observation for uncontrolled HTN and viral gastroenteritis He has been requesting pain meds IV, even though he is tolerating orally, he is asymptomatic, no objective evidence of diarrhea or vomiting since admission He has been stable He was going to be discharged after HD but requested "IV dilaudid to take him through HD". After being informed, he had oral doses ordered, he decided to leave AMA He did not wait for his HD prior to leaving He has all his meds at home Follow up with PCP - Time Spent with Patient Total time spent providing and/or coordinating discharge services: Less than 30 minutes - Constitutional Vitals: Temp Pulse Resp BP Pulse Ox 98.3 F 72 16 122/65 94 04/11/17 10:34 04/11/17 10:34 04/11/17 10:34 04/11/17 10:34 04/11/17 10:34 General appearance: Present: cooperative, A&O X 3, no acute distress, answers questions appropriately - Head Head exam: Present: atraumatic, normocephalic - Eye Eye exam: Present: PERRL, conjuntiva pink, sclera anicteric Pupils: Present: PERRL - Neck Neck exam general surgery: Present: supple, trachea midline. Absent: lymphadenopathy - Respiratory Respiratory exam: Present: CTAB. Absent: accessory muscle use, rales, rhonchi, wheezes - Cardiovascular Cardiovascular exam: Present: RRR, +S1, +S2. Absent: diastolic murmur, gallop, rubs, systolic murmur - GI/Abdominal GI/Abdominal exam: Present: normal bowel sounds, soft, no peritoneal signs. Absent: distended, tenderness - Extremities Exam Extremities exam: Present: warm, radial pulses palpable and symmetrical. Absent : calf tenderness, cyanotic, pedal edema - Neurological Exam Neurological exam: Present: alert, CN II-XII intact, oriented X3, no focal deficits. Absent: pronater drift, facial droop, speech deficit - Skin Skin exam: Present: dry, intact
[2017-04-11 11:26] LABS: Ferritin 1150 ng/ml (20-250)
== END 2017-04-11 13:08 | disposition left against medical advice (07) ==
LOC: EMEROO 11:26 → 2ANU 11:26 → SUATTDRO 15:02 → 2ANU 16:26
PROVIDERS: ADMIT Internal Medicine Nephrology; ATTEND Internal Medicine

== ENCOUNTER 2017-11-28 11:25 | Inpatient (IN) ==
--- NOTE | 2017-11-28 12:02 | Emergency Department Note ---
Disposition Clinical Impression: Pleural effusion, ESRD (end stage renal disease) on dialysis Ascites Qualifiers: Ascites type: other type Qualified Code(s): R18.8 - Other ascites CHF (congestive heart failure) Qualifiers: Heart failure type: unspecified Heart failure chronicity: chronic Qualified Code(s): I50.9 - Heart failure, unspecified Hypertension Qualifiers: Hypertension type: unspecified Qualified Code(s): I10 - Essential (primary) hypertension Disposition: Admitted As Inpatient Condition: Undetermined Referrals: Joss Balbuena MD [Primary Care Provider] - Forms: ED Satisfaction Letter Time of Disposition: 13:34 SOB HPI - General Chief Complaint: ED Shortness of Breath/Dyspnea Stated Complaint: "fluid overload" Time Seen by Provider: 11/28/17 11:52 Source: patient Mode of arrival: ambulatory Limitations: no limitations Nursing Notes Reviewed: Yes Vital Signs Reviewed: Yes - History of Present Illness 42-year-old male with history of chronic kidney disease on dialysis, and scar tissue of the left long, arrives to the emergency department with complaint of shortness of breath. The patient states he received dialysis today but she still fluid overloaded. The patient states that he has been expressing a large amount of abdominal distention without abdominal pain. The patient states that he has had a previous paracentesis in the past. The patient states that he feels as though he needs to have his "belly tapped". The patient denies any fevers, chills, abdominal pain. He is resting comfortably in the room. He is in no acute distress at this time but he does feel short of breath. The patient denies any other complaints. Patient states he is unsure of why he develops ascites in his abdomen as he does not have liver failure. The patient is s/p nephrectomy and kidney transplant and subsequent removal of that kidney. - Related Data Home Medications Medication Instructions Recorded Confirmed Calcium Acetate [Phos-LO] 1,334 mg PO TIDWM 05/12/15 04/08/17 cloNIDine HCl [Clonidine HCl] 0.2 mg PO TID 05/12/15 04/08/17 Sertraline [Zoloft] 100 mg PO HS 01/22/16 04/08/17 Renal Vitamin [Renal Caps Softgel] 1 mg PO DAILY 03/22/16 04/08/17 Acetaminophen [Tylenol] 650 mg PO Q4H PRN 03/13/17 04/08/17 Amlodipine Besylate 10 mg PO DAILY 03/13/17 04/08/17 Carvedilol [Coreg] 25 mg PO BID 03/13/17 04/08/17 Hydralazine HCl 100 mg PO TID 03/13/17 04/08/17 Isosorbide MONOnitrate (24 HR) 30 mg PO DAILY 03/13/17 04/08/17 [Imdur] Lisinopril [Zestril] 20 mg PO DAILY 03/13/17 04/08/17 Promethazine [Phenergan] 25 mg PO Q6H PRN 03/13/17 04/08/17 Oxymorphone HCl [Oxymorphone HCl 30 mg PO Q8H 04/08/17 04/08/17 ER] Previous Rx's Medication Instructions Recorded Aspirin Enteric Coated [Aspirin EC] 81 mg PO DAILY #30 tablet. 03/24/16 Nitroglycerin 0.4 mg SL Q5MIN PRN #20 tab.subl 02/15/17 Minoxidil 5 mg PO BID #60 tablet 03/14/17 Allergies Allergy/AdvReac Type Severity Reaction Status Date / Time Cephalosporins Allergy Hives Verified 11/28/17 11:53 codeine Allergy Hives Verified 11/28/17 11:53 Sulfa (Sulfonamide Allergy Hives Verified 11/28/17 11:53 Antibiotics) morphine AdvReac Difficulty Verified 11/28/17 11:53 Breathing All systems ED: reviewed and negative except as stated. Constitutional: Denies: fever, chills, weakness ENT ED: Denies: dysphagia Cardiovascular: Reports: dyspnea on exertion, edema. Denies: chest pain, orthopnea, syncope Respiratory: Reports: dyspnea. Denies: cough, sputum production Gastrointestinal: Denies: abdominal pain, nausea, vomiting, diarrhea Genitourinary: Denies: urgency, dysuria Musculoskeletal: Denies: back pain, neck pain Integumentary: Denies: rash Neurological: Denies: headache Past Medical History - Past Medical History Attestation: Yes The following information was validated with the patient. Source: patient, old records reviewed Medical history: Reports: arthritis, CHF, dialysis, hypertension, pulmonary embolus, renal disease Surgical history: Reports: orthopedic, other (Rt. knee meniscus repair), vascular surgery, other (Kidney transplant in 2003 and removal of the same kidney 2013, end-stage renal disease secondary to obstructive uropathy, left approximately IV fistula with a stent placement, pleurodeses due to left pleural effusion, sinus surgery) Psychiatric history: Reports: anxiety, depression - Social History Smoking Status: Never smoker Smokeless Tobacco Status: No Alcohol use: Reports: none Drug use: Reports: none Physical Exam - General Limitations: no limitations General appearance: alert, in no apparent distress - Head Head exam: atraumatic, normocephalic, normal inspection - Eye Eye exam: Present: normal appearance, PERRL, EOMI - ENT ENT exam: normal exam, normal oropharynx, mucous membranes moist - Neck Neck exam: Present: normal inspection, full ROM, trachea midline - Chest Chest inspection: Present: normal inspection, symmetric chest wall rise - Respiratory Respiratory exam: Present: other (Coarse breath sounds with rales noted on LLL) . Absent: respiratory distress, wheezes - Cardiovascular Cardiovascular exam: Present: regular rate, normal rhythm, normal heart sounds - Abdominal Exam Abdominal exam: Present: soft, Non-Tender, distention, ascites, hernia ( Umbilical), scar. Absent: tenderness, guarding, rebound, rigidity, incision, Soria's sign, Rovsing's sign - Extremities Exam Extremities exam: Present: normal inspection, full ROM. Absent: tenderness, pedal edema - Neurological Exam Neurological exam: Present: alert, oriented X3 - Skin Skin exam: Present: warm, dry, intact, normal color Course Vital Signs Temperature 98.5 F 11/28/17 11:36 Pulse Rate 63 11/28/17 11:36 Respiratory Rate 15 11/28/17 11:36 Blood Pressure 212/101 11/28/17 11:36 O2 Sat by Pulse Oximetry 99 11/28/17 11:36 Temperature 98.5 F 11/28/17 11:51 Pulse Rate 59 11/28/17 13:18 Respiratory Rate 16 11/28/17 13:18 Blood Pressure 199/107 11/28/17 13:18 O2 Sat by Pulse Oximetry 99 11/28/17 13:18 Oxygen Delivery Oxygen Delivery Room Air Shortness of Breath/Dyspnea - MDM Narrative Medical decision making narrative: Patient workup in the ED demonstrates that the patient has some vascular congestion and pleural effusion. Consult to interventional radiology was performed. They will likely perform paracentesis after receiving a formal ultrasound looking for ascites. Bedside [id number] ultrasound reveals ascites within the abdomen as well as no pericardial effusion on bedside echo. The patient's lab work is otherwise unremarkable. Patient will be admitted to the hospitalist, accepted by Dr. Merino. Hospitalist requested consultation to nephrology which were performed. - Lab Data Lab results reviewed: Yes I reviewed the patient's lab results. Result diagrams: 11/28/17 12:27 11/28/17 12: Lab Results 11/28/17 11/28/17 11/28/17 Range/Units 12:27 12: 12: WBC 4.0 L (4.3-11.1) K/mcL RBC 3.58 L (4.19-5.50) M/mcL Hgb 10.7 L (12.9-16.9) g/dL Hct 31.7 L (37.5-50.1) % MCV 88.5 (83.0-100.0) fL MCH 29.9 (28.0-33.3) pg MCHC 33.8 (31.6-35.5) g/dL RDW 13.2 (11.5-14.5) % Plt Count 165 (140-400) K/mcL MPV 9.0 L (9.4-12.4) fL Immature Gran % 0.3 (0-4) % Seg Neutrophils % 64.3 % Lymphocytes % 16.7 % Monocytes % 12.9 % Eosinophils % 4.5 % Basophils % 1.3 % Neutrophils # 2.6 (1.6-8.9) K/mcL Lymphocytes # 0.7 (0.6-4.6) K/mcL Monocytes # 0.5 (0.0-1.3) K/mcL Eosinophils # 0.2 (0.0-0.6) K/mcL Basophils # 0.1 (0.0-0.2) K/mcL PT 13.9 H (9.4-12.1) Seconds INR 1.2 APTT 31.0 (26.0-36.0) Seconds Sodium 137 (136-145) mEq/L Potassium 3.4 L (3.5-5.1) mEq/L Chloride 97 L (98-107) mEq/L Carbon Dioxide 30 H (23-29) mEq/L BUN 25 H (6-20) mg/dL Creatinine 4.91 H (0.70-1.30) mg/dL Est GFR ( Amer) 16 L (> 60) Est GFR (Non-Af Amer) 13 L (> 60) BUN/Creatinine Ratio 5 L (6-26) Glucose 63 L (70-105) mg/dL Calculated Osmolality 286 (280-300) Calcium 9.1 (8.6-10.3) mg/dL Total Bilirubin 0.6 (0.3-1.0) mg/dL Direct Bilirubin 0.1 (0.0-0.2) mg/dL Indirect Bilirubin 0.5 (0.0-1.2) mg/dL AST 11 L (13-39) Units/L ALT 10 (7-52) Units/L Alkaline Phosphatase 48 (34-104) Units/L Troponin I 0.03 (< 0.04) ng/mL Serum Total Protein 6.9 (6.4-8.9) g/dL Albumin 4.4 (3.5-5.7) g/dL Globulin 2.5 (2.4-3.5) g/dL Albumin/Globulin Ratio 1.8 (1.1-2.2) - Radiology Data Radiology results reviewed: Yes I reviewed the patient's radiology results. Chest X-Ray 11/28/17 11:56 IMPRESSION: Findings suggestive of mild pulmonary edema with persistent trace left pleural effusion and left basilar scarring. D/ / Tiffanie Weaver MD / Tiffanie Weaver MD Interpreting Provider: Tiffanie Weaver MD - EKG Data EKG attestation: Yes I reviewed and interpreted this EKG. EKG results narrative: Heart rate [address] elevation but mild ST depression that is noted in leads 1, V6 and aVL. The patient has some J-point elevation noted throughout. EKG similar in appearance overall to EKG from 11/22/2017.
[2017-11-28 12:43] LABS: Basophils # 0.1 K/mcL (0.0-0.2); Basophils % 1.3 %; Eosinophils # 0.2 K/mcL (0.0-0.6); Eosinophils % 4.5 %; Hematocrit 31.7 % (37.5-50.1); Hemoglobin 10.7 g/dL (12.9-16.9); Immature Granulocytes % 0.3 % (0-4); Lymphocytes # 0.7 K/mcL (0.6-4.6); Lymphocytes % 16.7 %; Mean Corpuscular HGB Conc 33.8 g/dL (31.6-35.5); Mean Corpuscular Hemoglobin 29.9 pg (28.0-33.3); Mean Corpuscular Volume 88.5 fL (83.0-100.0); Monocytes # 0.5 K/mcL (0.0-1.3); Monocytes % 12.9 %; Neutrophils # 2.6 K/mcL (1.6-8.9); Platelet Count 165 K/mcL (140-400); Red Blood Count 3.58 M/mcL (4.19-5.50); Red Cell Distribution Width 13.2 % (11.5-14.5); Segmented Neutrophils % 64.3 %
--- NOTE | 2017-11-28 12:44 | Emergency Department Note ---
Disposition Clinical Impression: Ascites Qualifiers: Ascites type: other type Qualified Code(s): R18.8 - Other ascites Disposition: Still a Patient Referrals: Joss Balbuena MD [Primary Care Provider] - Forms: ED Satisfaction Letter General Adult HPI - General Chief complaint: ED Shortness of Breath/Dyspnea Stated complaint: "fluid overload" Time Seen by Provider: 11/28/17 11:52 Source: patient Mode of arrival: ambulatory Limitations: no limitations - History of Present Illness Pain Scale: 8 - Related Data Home Medications Medication Instructions Recorded Confirmed Calcium Acetate [Phos-LO] 1,334 mg PO TIDWM 05/12/15 04/08/17 cloNIDine HCl [Clonidine HCl] 0.2 mg PO TID 05/12/15 04/08/17 Sertraline [Zoloft] 100 mg PO HS 01/22/16 04/08/17 Renal Vitamin [Renal Caps Softgel] 1 mg PO DAILY 03/22/16 04/08/17 Acetaminophen [Tylenol] 650 mg PO Q4H PRN 03/13/17 04/08/17 Amlodipine Besylate 10 mg PO DAILY 03/13/17 04/08/17 Carvedilol [Coreg] 25 mg PO BID 03/13/17 04/08/17 Hydralazine HCl 100 mg PO TID 03/13/17 04/08/17 Isosorbide MONOnitrate (24 HR) 30 mg PO DAILY 03/13/17 04/08/17 [Imdur] Lisinopril [Zestril] 20 mg PO DAILY 03/13/17 04/08/17 Promethazine [Phenergan] 25 mg PO Q6H PRN 03/13/17 04/08/17 Oxymorphone HCl [Oxymorphone HCl 30 mg PO Q8H 04/08/17 04/08/17 ER] Previous Rx's Medication Instructions Recorded Aspirin Enteric Coated [Aspirin EC] 81 mg PO DAILY #30 tablet.dr 03/24/16 Nitroglycerin 0.4 mg SL Q5MIN PRN #20 tab.subl 02/15/17 Minoxidil 5 mg PO BID #60 tablet 03/14/17 Allergies Allergy/AdvReac Type Severity Reaction Status Date / Time Cephalosporins Allergy Hives Verified 11/28/17 11:53 codeine Allergy Hives Verified 11/28/17 11:53 Sulfa (Sulfonamide Allergy Hives Verified 11/28/17 11:53 Antibiotics) morphine AdvReac Difficulty Verified 11/28/17 11:53 Breathing Constitutional: Denies: fever, chills, weakness ENT ED: Denies: dysphagia Cardiovascular: Reports: dyspnea on exertion, edema. Denies: chest pain, orthopnea, syncope Respiratory: Reports: dyspnea. Denies: cough, sputum production Gastrointestinal: Denies: abdominal pain, nausea, vomiting, diarrhea Genitourinary: Denies: urgency, dysuria Musculoskeletal: Denies: back pain, neck pain Integumentary: Denies: rash Neurological: Denies: headache Past Medical History - Past Medical History Medical history: Reports: arthritis, CHF, dialysis, hypertension, pulmonary embolus, renal disease Surgical history: Reports: orthopedic, other (Rt. knee meniscus repair), vascular surgery, other (Kidney transplant in 2003 and removal of the same kidney 2013, end-stage renal disease secondary to obstructive uropathy, left approximately IV fistula with a stent placement, pleurodeses due to left pleural effusion, sinus surgery) Psychiatric history: Reports: anxiety, depression - Social History Smoking Status: Never smoker Smokeless Tobacco Status: No Alcohol use: Reports: none Drug use: Reports: none Physical Exam - General Limitations: no limitations General appearance: alert, in no apparent distress Course Vital Signs Temperature 98.5 F 11/28/17 11:36 Pulse Rate 63 11/28/17 11:36 Respiratory Rate 15 11/28/17 11:36 Blood Pressure 212/101 11/28/17 11:36 O2 Sat by Pulse Oximetry 99 11/28/17 11:36 Temperature 98.5 F 11/28/17 11:51 Pulse Rate 63 11/28/17 11:51 Respiratory Rate 15 11/28/17 11:51 Blood Pressure 212/101 11/28/17 11:51 O2 Sat by Pulse Oximetry 99 11/28/17 11:51 Oxygen Delivery Oxygen Delivery Room Air Attestation Statement - Attestation Attestation: I examined this patient and my medical decision-making was reviewed with the Resident Physician. I agree with the documented findings, disposition and treatment plan as described except to the extent set forth below. 42 year old male presents to the ED with complaints of abdominal swelling s/p dialysis and does not have a history of cirrhosis and has only needed paracentesis once which was months ago. PAtinet appears uncomfortable and is now hypertensive martinez having shortness of breath. His abdome is distended and tympanic. We will do abdominal labs and then consult IR for paracentesis.
[2017-11-28 12:45] LABS: INR 1.2; Prothrombin Time 13.9 Seconds (9.4-12.1)
[2017-11-28 12:58] LABS: Troponin I 0.03 ng/mL (< 0.04)
[2017-11-28 13:01] LABS: Albumin 4.4 g/dL (3.5-5.7); Albumin/Globulin Ratio 1.8 (1.1-2.2); Bilirubin,Direct 0.1 mg/dL (0.0-0.2); Bilirubin,Indirect 0.5 mg/dL (0.0-1.2); Bilirubin,Total 0.6 mg/dL (0.3-1.0); Calcium 9.1 mg/dL (8.6-10.3); Globulin 2.5 g/dL (2.4-3.5); Potassium 3.4 mEq/L (3.5-5.1); Total Protein 6.9 g/dL (6.4-8.9)
[2017-11-28] MEDS ORDERED: *HR* OxyCODONE Immed Rel 5 MG TABLET PO STA (13:14)
--- NOTE | 2017-11-28 14:44 | Nephrology Consult Note ---
Date of Encounter: 11/29/17 Time of Encounter: 09:38 Assessment and Plan (1) ESRD (end stage renal disease) on dialysis Current Visit: Yes Status: Chronic Current regimen is MWF in [place] with Dr. Garcia. Plan for HD tomorrow. Last HD tx was yesterday without complication. Avoid nephrotoxins and renal dose all medications. (2) Ascites Current Visit: Yes Status: Chronic s/p paracentesis yesterday. Qualifiers: Ascites type: other type Qualified Code(s): R18.8 - Other ascites (3) HTN (hypertension) Current Visit: Yes Status: Chronic BP is stable 158/91. Qualifiers: Hypertension type: unspecified Qualified Code(s): I10 - Essential (primary ) hypertension History of Present Illness - Reason for Consult Consult date: 11/28/17 end stage renal disease - Chief Complaint fluid overload - History of Present Illness Mr. Mendez is a 41 year old male with ESRD who dialyzes in [facility] with Dr. Garcia. His last dialysis was yesterday. Other PMH- arthritis, CHF, hypertension, pulmonary embolus. He had a Kidney transplant in 2003 and removal of the same kidney 2013. Mr. Mendez presented today with shortness of breath after HD. He does not have a history of cirrhosis but has had a paracentesis in the past. Mr. Mendez presented yesterday with shortness of breath and abdominal distention. He did go for a paracentesis in and he thinks about a Liter was removed. Past Med Surg Social Fam HX - Past Medical History Medical history: arthritis, CHF, dialysis, hypertension, pulmonary embolus, renal disease Additional medical history: ascites Psychiatric history: anxiety, depression - Past Surgical History Surgical History: orthopedic, other (Rt. 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, left approximately IV fistula with a stent placement, pleurodeses due to left pleural effusion, sinus surgery) Additional surgical history: kidney transplant. fistula left arm. knee surgery. kidney removed - Social History Smoking Status: Never smoker Smokeless Tobacco Status: No Alcohol use: none Drug use: none - Family History Brother Family Member Ethnicity: Non- Living Status: Still Living Sister Family Member Ethnicity: Non- Living Status: Still Living Father Family Member Ethnicity: Non- Living Status: Still Living Hx Family Cardiac Disorders: No Hx Family Respiratory Disorders: No Hx Family Cancer: No Hx Family GI Disorders: No Hx Family Endocrine Disorder: No Hx Family Neuromuscular Disorders: No Hx Family Neurologic Disorders: No Hx Family HEENT Disorders: No Hx Family Autoimmune Disorders: No Mother Adopted: No Family Member Ethnicity: Non- Living Status: Hx Family Cardiac Disorders: No Hx Family Respiratory Disorders: Yes (COPD, emphysema) Hx Family Cancer: No Hx Family GI Disorders: No Hx Family Endocrine Disorder: No Hx Family Neuromuscular Disorders: No Hx Family Neurologic Disorders: No Hx Family HEENT Disorders: No Hx Family Autoimmune Disorders: No Medications and Allergies Calcium Acetate [Phos-LO] 667 mg PO TIDWM 05/12/15 [History] cloNIDine HCl [Clonidine HCl] 0.2 mg PO TID 05/12/15 [History] Sertraline [Zoloft] 100 mg PO HS 01/22/16 [History] Renal Vitamin [Renal Caps Softgel] 1 mg PO DAILY 03/22/16 [History] Nitroglycerin 0.4 mg SL Q5MIN PRN #20 tab.subl 02/15/17 [Rx] Amlodipine Besylate 10 mg PO DAILY 03/13/17 [History] Carvedilol [Coreg] 25 mg PO BID 03/13/17 [History] Hydralazine HCl 100 mg PO TID 03/13/17 [History] Isosorbide MONOnitrate (24 HR) [Imdur] 30 mg PO DAILY 03/13/17 [History] Lisinopril [Zestril] 20 mg PO DAILY 03/13/17 [History] Calcitriol [Rocaltrol] 0.25 mcg PO MOWEFR 11/28/17 [History] Minoxidil 2.5 mg PO DAILY 11/28/17 [History] OxyCODONE Immed Rel [Roxicodone 30 MG] 30 mg PO Q4HR PRN 11/28/17 [History] 3 Allergy/AdvReac Type Severity Reaction Status Date / Time Cephalosporins Allergy Hives Verified 11/28/17 13:52 codeine Allergy Hives Verified 11/28/17 13:52 Sulfa (Sulfonamide Allergy Hives Verified 11/28/17 13:52 Antibiotics) morphine AdvReac Difficulty Verified 11/28/17 13:52 Breathing Review of Systems Constitutional: no chills, no fever(s) Cardiovascular: dyspnea, no chest pain Respiratory: no cough Gastrointestinal: abdominal pain, no change in bowel habits, no diarrhea, no nausea, no vomiting Exam - Vital Signs Vital signs: Initial Vital Signs Temp Pulse Resp BP Pulse Ox 98.5 F 63 15 212/101 99 11/28/17 11:36 11/28/17 11:36 11/28/17 11:36 11/28/17 11:36 11/28/17 11:36 - General Appearance General appearance: well-developed, well-nourished EENT: ATNC, hearing intact, vision intact Neck: supple Respiratory: clear Cardiology: no edema, normal S1, normal S2 - Dialysis Access Dialysis Vascular Access: Arteriovenous Fistula thrill: Yes bruit: Yes Gastrointestinal: normoactive bowel sounds, no tenderness, no guarding Integumentary: no rash, warm and dry Neurologic: alert and oriented x3 Psychiatric: mood/affect appropriate Results - Lab Results 11/28/17 19:34 11/29/17 04:55 Most recent lab results Calcium 9.1 mg/dL (8.6-10.3) 11/28/17 12:27 Consult Discharge Plan - Plan Referrals: Joss Balbuena MD [Primary Care Provider] -
--- NOTE | 2017-11-28 15:40 | Internal Med History&Physical ---
Date of Encounter: 11/28/17 Time of Encounter: 15:00 Internal Medicine - H&P: HPI Chief complaint: Increased abdominal girth Admitted From: Home Plans for Post Hospital Care: Home History of present illness: Patient is a 42-year-old male with past medical history significant for CHF, pulmonary embolism, hypertension and kidney disease who was sent from the dialysis center at [place] (manager distribution Dr. Daniel) due to increased abdominal girth. Patient reports a one-week history of increased and abdominal girth in addition to weight gain. He reports of having ascites drained approximately 3 years ago but denies any history of cirrhosis. Patient does have a history of kidney transplant in 2003 and removal of the same kidney 2013, end-stage renal disease secondary to obstructive uropathy, left approximately IV fistula with a stent placement, and receives hemodialysis on Tuesday, Wednesdays and Fridays in [place]. In the ER, interventional radiology was consulted and paracentesis was performed in the ER. Patient will be admitted to medical surgical floor for further monitoring. Past Med Surg Social Fam HX - Past Medical History Medical history: arthritis, CHF, dialysis, hypertension, pulmonary embolus, renal disease Additional medical history: ascites Psychiatric history: anxiety, depression - Past Surgical History Surgical History: orthopedic, other (Rt. 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, left approximately IV fistula with a stent placement, pleurodeses due to left pleural effusion, sinus surgery) Additional surgical history: kidney transplant. fistula left arm. knee surgery. kidney removed - Social History Smoking Status: Never smoker Smokeless Tobacco Status: No Alcohol use: none Drug use: none - Family History Brother Family Member Ethnicity: Non- Living Status: Still Living Sister Family Member Ethnicity: Non- Living Status: Still Living Father Family Member Ethnicity: Non- Living Status: Still Living Hx Family Cardiac Disorders: No Hx Family Respiratory Disorders: No Hx Family Cancer: No Hx Family GI Disorders: No Hx Family Endocrine Disorder: No Hx Family Neuromuscular Disorders: No Hx Family Neurologic Disorders: No Hx Family HEENT Disorders: No Hx Family Autoimmune Disorders: No Mother Adopted: No Family Member Ethnicity: Non- Living Status: Hx Family Cardiac Disorders: No Hx Family Respiratory Disorders: Yes (COPD, emphysema) Hx Family Cancer: No Hx Family GI Disorders: No Hx Family Endocrine Disorder: No Hx Family Neuromuscular Disorders: No Hx Family Neurologic Disorders: No Hx Family HEENT Disorders: No Hx Family Autoimmune Disorders: No Internal Medicine - H&P: Meds Calcium Acetate [Phos-LO] 667 mg PO TIDWM 05/12/15 [History] cloNIDine HCl [Clonidine HCl] 0.2 mg PO TID 05/12/15 [History] Sertraline [Zoloft] 100 mg PO HS 01/22/16 [History] Renal Vitamin [Renal Caps Softgel] 1 mg PO DAILY 03/22/16 [History] Nitroglycerin 0.4 mg SL Q5MIN PRN #20 tab.subl 02/15/17 [Rx] Amlodipine Besylate 10 mg PO DAILY 03/13/17 [History] Carvedilol [Coreg] 25 mg PO BID 03/13/17 [History] Hydralazine HCl 100 mg PO TID 03/13/17 [History] Isosorbide MONOnitrate (24 HR) [Imdur] 30 mg PO DAILY 03/13/17 [History] Lisinopril [Zestril] 20 mg PO DAILY 03/13/17 [History] Calcitriol [Rocaltrol] 0.25 mcg PO MOWEFR 11/28/17 [History] Minoxidil 2.5 mg PO DAILY 11/28/17 [History] OxyCODONE Immed Rel [Roxicodone 10 MG] 10 mg PO QID 11/28/17 [History] 3 Allergy/AdvReac Type Severity Reaction Status Date / Time Cephalosporins Allergy Hives Verified 11/28/17 13:52 codeine Allergy Hives Verified 11/28/17 13:52 Sulfa (Sulfonamide Allergy Hives Verified 11/28/17 13:52 Antibiotics) morphine AdvReac Difficulty Verified 11/28/17 13:52 Breathing All Systems PM: A 10-system review of systems was performed and is negative for pertinent findings except as documented above in the HPI. - Constitutional Vitals: Temp Pulse Resp BP Pulse Ox 98.5 F 59 16 199/107 99 11/28/17 11:51 11/28/17 13:18 11/28/17 13:18 11/28/17 13:18 11/28/17 13:18 General appearance: Present: A&O X 3, no acute distress Exam: gen; nad - Eye Eye exam: Present: normal appearance - ENT ENT exam: Present: mucous membranes moist - Respiratory Respiratory exam: Present: CTAB. Absent: accessory muscle use, rales, rhonchi, wheezes - Cardiovascular Cardiovascular exam: Present: RRR, +S1, +S2. Absent: diastolic murmur, gallop, rubs, systolic murmur - GI/Abdominal GI/Abdominal exam: Present: distended, soft. Absent: tenderness - Extremities Exam Extremities exam: Absent: pedal edema - Neurological Exam Neurological exam: Present: alert, oriented X3, no focal deficits - Psychiatric Psychiatric exam: Present: normal mood - Skin Skin exam: Present: normal color Internal Med - H&P Results - Labs CBC & Chem 7: 11/28/17 12:27 11/28/17 12:27 - Assessment and plan (1) Ascites Current Visit: Yes Status: Chronic Assessment and plan: Interventional radiology was consulted from the ER and paracentesis was performed. LFTs within normal limits Will order abdominal CT for evaluation of liver Qualifiers: Ascites type: other type Qualified Code(s): R18.8 - Other ascites (2) ESRD (end stage renal disease) on dialysis Current Visit: Yes Status: Chronic Assessment and plan: Patient does have a history of kidney transplant in 2003 and removal of the same kidney 2013, end-stage renal disease secondary to obstructive uropathy, left approximately IV fistula with a stent placement, and receives hemodialysis on Tuesday, Wednesdays and Fridays in [place]. Nephrology consulted and appreciate any additional recommendations (3) HTN (hypertension) Current Visit: Yes Status: Chronic Assessment and plan: Patient's blood pressure elevated in the ER at 199/107 Continue patient's home BP meds and cover with hydralazine IV as needed Qualifiers: Hypertension type: unspecified Qualified Code(s): I10 - Essential (primary ) hypertension (4) Pleural effusion Current Visit: Yes Status: Chronic Assessment and plan: Chest x-ray showed findings suggestive of mild pulmonary edema with persistent trace left pleural effusion and left basilar scarring Will continue to monitor (5) Anemia in chronic kidney disease (CKD) Current Visit: No Status: Acute Assessment and plan: Hemoglobin at baseline; continue to monitor Qualifiers: Chronic kidney disease stage: on chronic dialysis Qualified Code(s): N18.6 - End stage renal disease; D63.1 - Anemia in chronic kidney disease; D63.1 - Anemia in chronic kidney disease; Z99.2 - Dependence on renal dialysis; Z99.2 - Dependence on renal dialysis; Z99.2 - Dependence on renal dialysis; Z99.2 - Dependence on renal dialysis (6) Intractable back pain Current Visit: No Status: Acute Assessment and plan: Continue patient's home meds (7) DVT prophylaxis Current Visit: No Status: Acute Assessment and plan: SCDs - Time Spent With Patient Total time spent is greater than 50% in coordination of care (as documented) at patient's floor/unit and/or counseling patient:
--- NOTE | 2017-11-28 15:45 | IR Procedure Note ---
Date of procedure: 11/28/17 Consent Obtained: Verbal consent, Written consent Timeout: Correct patient and procedure verified, Correct site verified, Time out performed, Skin prep completed Local anesthetic: Lidocaine 1% Indications: ascites Procedure Performed: paracentesis Was there an funeral director's assistant present: No Results/Findings: 1.5 L aspirated Estimated blood loss (cc): 1 Specimen: sample sent to lab
[2017-11-28 16:45] LABS: RBC,Peritoneal Fluid 0.002 M/mcL
[2017-11-28 16:58] LABS: Total Protein,Peritoneal Fluid 3.7 g/dL (No Ref Range)
[2017-11-28 17:51] LABS: Appearance of Peritoneal Fl CLOUDY (Clear)
[2017-11-28] MEDS ORDERED: Nitroglycerin 0.4 MG TAB.SUBL SL PRN (18:37)
[2017-11-28] MEDS ORDERED: Naloxone 0.4 MG/ML INJ IVP PRN (18:38)
[2017-11-28 19:50] LABS: Basophils # 0.1 K/mcL (0.0-0.2); Basophils % 1.5 %; Eosinophils # 0.2 K/mcL (0.0-0.6); Eosinophils % 4.6 %; Hematocrit 31.3 % (37.5-50.1); Hemoglobin 10.8 g/dL (12.9-16.9); Immature Granulocytes % 0.3 % (0-4); Lymphocytes % 24.9 %; Mean Corpuscular HGB Conc 34.5 g/dL (31.6-35.5); Mean Corpuscular Hemoglobin 30.4 pg (28.0-33.3); Mean Corpuscular Volume 88.2 fL (83.0-100.0); Mean Platelet Volume 10.1 fL (9.4-12.4); Monocytes # 0.5 K/mcL (0.0-1.3); Neutrophils # 2.2 K/mcL (1.6-8.9); Platelet Count 168 K/mcL (140-400); Red Blood Count 3.55 M/mcL (4.19-5.50); Red Cell Distribution Width 13.2 % (11.5-14.5); Segmented Neutrophils % 56.7 %
[2017-11-28] MEDS: hydrALAZINE 25 MG TABLET PO SCH (20:13)
[2017-11-28] MEDS: cloNIDine HCl 0.1 MG TABLET PO SCH (20:14)
[2017-11-28] MEDS ORDERED: *HR* OxyCODONE Immed Rel 5 MG TABLET PO PRN ×2 (21:00→23:45)
[2017-11-29] MEDS: *HR* OxyCODONE Immed Rel 5 MG TABLET PO PRN ×3 (02:38→23:48)
[2017-11-29 06:04] LABS: Calcium 8.8 mg/dL (8.6-10.3)
[2017-11-29] MEDS: hydrALAZINE 25 MG TABLET PO SCH ×3 (08:43→20:38)
[2017-11-29] MEDS: amLODIPine 5 MG TABLET PO SCH (08:44)
[2017-11-29] MEDS: Calcium Acetate 667 MG CAPSULE PO SCH ×3 (08:44→17:02)
[2017-11-29] MEDS: Isosorbide MONOnitrate (24 HR) 30 MG TAB.ER.24H PO SCH (08:44)
[2017-11-29] MEDS: Renal Vitamin 1 CAP CAPSULE PO SCH (08:44)
[2017-11-29] MEDS: cloNIDine HCl 0.1 MG TABLET PO SCH ×3 (08:44→20:38)
[2017-11-29] MEDS: Lisinopril 20 MG TABLET PO SCH (08:44)
[2017-11-29] MEDS: *HR* FentaNYL (PF) 100 MCG/2 ML VIAL IVP PRN ×2 (14:46→20:38)
--- NOTE | 2017-11-29 16:36 | Electrocardiograph Report ---
[address] [place], [place] [address] Test Date: 2017-11-28 Pat Name: Yogesh Mendez Department: Room: 2A44 Gender: M Sample Checker: : 1975 Requested By: [place] Oh Order Number: [id number] Reading MD: Danna Bob Measurements Intervals [place] Rate: 63 P: 38 CA: 197 QRS: -12 QRSD: 99 T: 128 QT: 472 QTc: 484 Interpretive Statements Sinus rhythm Probable left atrial enlargement LVH with secondary repolarization abnormality Borderline prolonged QT interval Electronically Signed On 11-29-2017 16:34:54 EDT by Danna Bob
[2017-11-29] MEDS ORDERED: Ondansetron 4 MG/2 ML VIAL IVP PRN (16:59)
[2017-11-29] MEDS: *HR* Heparin 5,000 UNIT/ML VIAL SQ SCH (17:11)
--- NOTE | 2017-11-29 18:01 | Internal Med Progress Note ---
Hospitalist Progress Note - Encounter Date of Encounter: 11/29/17 Time of Encounter: 11:30 - Subjective Interval History: Patient was sitting up in bed, ready to eat his lunch. However, on inquiring about pain, reports 10 over 10 severe left-sided abdominal pain associated with some swelling/distention. He did receive paracentesis yesterday, remote up to 1.5 L. No nausea, vomiting, diarrhea. No fever or chills. Patient requests IV narcotic pain medications. - Exam Vitals: Temp Pulse Resp BP Pulse Ox 98.0 F 69 16 112/64 94 11/29/17 15:44 11/29/17 15:44 11/29/17 15:44 11/29/17 15:44 11/29/17 15:44 Exam: General: Well-developed male, sitting up in bed, mild-moderate distress due to pain Chest: Normal thoracic expansion. Normal breath sounds. Clear to auscultation. Heart: Normal S1 & S2; rhythmic. No rubs or murmurs. Abdomen: soft, LLQ, RLQ and left trunk tenderness to light palpation; voluntary guarding+; Extremities: No clubbing, cyanosis or edema. No calf tenderness. Normal distal pulses. Neurological: Awake, alert and oriented to person, place and time. No focal deficits. - Assessment and Plan (1) Ascites Current Visit: Yes Status: Acute Assessment and Plan: Unclear etiology. Patient has no history of cirrhosis or viral hepatitis in the past. He does report one episode of paracentesis about 4 years ago, with no diagnosis determined. Status post ultrasound-guided paracentesis by IR with 1.5 L fluid removal. Peritoneal fluid analysis is not consistent with infection. Total protein noted to be high, suggestive of possible cardiac etiology. Will check for pericardial fluid albumin to determine SAAG; check transthoracic echocardiogram. Patient is noted to have significant abdominal tenderness and left-sided swelling. We will get Limited abdominal ultrasound to evaluate for redundant fluid/mass; pain control with PRN Oxycodone and IV Fentanyl; patient has drug-seeking behaviour, impacting his pain level assessment; (2) ESRD (end stage renal disease) on dialysis Current Visit: Yes Status: Chronic Assessment and Plan: Nephrology on board for dialysis needs. Plan for dialysis in a.m. (3) DVT prophylaxis Current Visit: Yes Status: Acute Assessment and Plan: On subcutaneous heparin. (4) HTN (hypertension) Current Visit: Yes Status: Chronic Assessment and Plan: Patient is noted to have difficult to control hypertension, noted to be on multiple antihypertensives. Resume home meds and monitor blood pressure closely. (5) Anemia in chronic kidney disease (CKD) Current Visit: Yes Status: Chronic (6) Pleuritic chest pain Current Visit: Yes Status: Chronic Assessment and Plan: Patient has history of chronic pleuritic chest pain secondary to scar tissue and is noted to be on oxycodone at home. Continue the same. (7) Anxiety and depression Current Visit: Yes Status: Chronic - Time Spent with Patient Total time spent is greater than 50% in coordination of care (as documented) at patient's floor/unit and/or counseling patient: Plan of Care Discussed with: patient Internal Medicine: Result - Labs CBC & Chem 7: 11/30/17 04:56 11/30/17 04:56 - ABG Interpretation ABG results: PT/INR, D-dimer PT 13.9 Seconds (9.4-12.1) H 11/28/17 12:27 Consult Discharge Plan - Plan Referrals: Joss Balbuena MD [Primary Care Provider] - (1) Ascites Qualifiers: Ascites type: other type Qualified Code(s): R18.8 - Other ascites (4) HTN (hypertension) Qualifiers: Hypertension type: essential hypertension Qualified Code(s): I10 - Essential (primary) hypertension (5) Anemia in chronic kidney disease (CKD) Qualifiers: Chronic kidney disease stage: on chronic dialysis Qualified Code(s): N18.6 - End stage renal disease; D63.1 - Anemia in chronic kidney disease; D63.1 - Anemia in chronic kidney disease; Z99.2 - Dependence on renal dialysis; Z99.2 - Dependence on renal dialysis; Z99.2 - Dependence on renal dialysis; Z99.2 - Dependence on renal dialysis
[2017-11-29 19:16] LABS: Hepatitis B Surface Antigen Nonreactive (Nonreactive)
[2017-11-30 01:58] LABS: Hepatitis B Surface Antibody 0.03 mIU/mL
[2017-11-30] MEDS: *HR* FentaNYL (PF) 100 MCG/2 ML VIAL IVP PRN ×3 (02:56→13:10)
[2017-11-30 05:18] LABS: Hematocrit 27.3 % (37.5-50.1); Mean Corpuscular HGB Conc 33.3 g/dL (31.6-35.5); Mean Corpuscular Hemoglobin 29.2 pg (28.0-33.3); Mean Corpuscular Volume 87.5 fL (83.0-100.0); Mean Platelet Volume 9.9 fL (9.4-12.4); Platelet Count 158 K/mcL (140-400); Red Blood Count 3.12 M/mcL (4.19-5.50); Red Cell Distribution Width 13.5 % (11.5-14.5)
[2017-11-30 05:19] LABS: Hemoglobin 9.1 g/dL (12.9-16.9)
[2017-11-30 05:30] LABS: Calcium 8.5 mg/dL (8.6-10.3); Potassium 4.4 mEq/L (3.5-5.1)
[2017-11-30] MEDS: *HR* Heparin 5,000 UNIT/ML VIAL SQ SCH (06:02)
[2017-11-30] MEDS ORDERED: 0.9 % Sodium Chloride 250 ML IVC PRN (07:07)
[2017-11-30] MEDS ORDERED: 0.9 % Sodium Chloride 1,000 ML PRIME SCH (07:15)
[2017-11-30] MEDS: cloNIDine HCl 0.1 MG TABLET PO SCH ×2 (07:58→14:36)
[2017-11-30] MEDS: hydrALAZINE 25 MG TABLET PO SCH ×2 (07:59→14:36)
[2017-11-30] MEDS: Isosorbide MONOnitrate (24 HR) 30 MG TAB.ER.24H PO SCH (08:00)
[2017-11-30] MEDS: amLODIPine 5 MG TABLET PO SCH (08:00)
[2017-11-30] MEDS: Lisinopril 20 MG TABLET PO SCH (08:00)
[2017-11-30] MEDS: Calcium Acetate 667 MG CAPSULE PO SCH ×2 (08:16→14:37)
[2017-11-30] MEDS: Renal Vitamin 1 CAP CAPSULE PO SCH (08:16)
[2017-11-30] MEDS ORDERED: 0.9 % Sodium Chloride 1,000 ML ONE (08:47)
--- NOTE | 2017-11-30 09:49 | Nephrology Progress Note ---
Date of Encounter: 11/30/17 Time of Encounter: 09:47 - Assessment and Plan (1) ESRD (end stage renal disease) on dialysis Current Visit: Yes Status: Chronic Current regimen is MWF in [place] with Dr. Garcia. HD in progress today. Avoid nephrotoxins and renal dose all medications. (2) Ascites Current Visit: Yes Status: Acute s/p paracentesis Tuesday11/28/17. He has requested IV pain medication from primary team. US yesterday was negative. Etiology of ascites is unclear. Qualifiers: Ascites type: other type Qualified Code(s): R18.8 - Other ascites (3) HTN (hypertension) Current Visit: Yes Status: Chronic BP is stable 107/52. Qualifiers: Hypertension type: essential hypertension Qualified Code(s): I10 - Essential (primary) hypertension Subjective Principal diagnosis: fluid overload Interval history: Pt seen and examined during HD, tolerating well. Does report abdominal pain. Objective - Vital Signs Vital signs: Vital Signs Temp Pulse Resp BP Pulse Ox 11/30/17 08:25 95 11/30/17 06:53 97.7 F 58 16 107/52 95 11/30/17 03:43 98.5 F 57 16 113/62 95 11/29/17 23:37 98.6 F 63 16 114/57 96 11/29/17 20:46 93 11/29/17 19:19 98.7 F 68 16 123/61 93 11/29/17 15:44 98.0 F 69 16 112/64 94 Intake and Output 11/29/17 11/30/17 11/30/17 23:59 07:59 15:59 Intake Total 0 / 0 Output Total 0 / 0 Balance 0 / 0 Intake: Oral 0 / 0 Output: Urine 0 / 0 Other: Weight 65.4 kg - General Appearance General appearance: Present: well-developed, well-nourished EENT: Present: ATNC, hearing intact, vision intact Neck: Present: supple Cardiology: Present: no edema, normal S1, normal S2 Dialysis Vascular Access: Arteriovenous Fistula thrill: Yes bruit: Yes Gastrointestinal: Present: normoactive bowel sounds, no tenderness, no guarding Integumentary: Present: no rash, warm and dry Neurologic: Present: alert and oriented x3 Psychiatric: Present: mood/affect appropriate, cooperative - Lab 11/30/17 04:56 11/30/17 04:56 Most recent lab results Calcium 8.5 mg/dL (8.6-10.3) L 11/30/17 04:56 Consult Discharge Plan - Plan Referrals: Joss Balbuena MD [Primary Care Provider] -
[2017-11-30 14:23] VITALS: BP 148/78
--- NOTE | 2017-11-30 15:17 | Discharge Summary ---
- NOTES TO OUTPATIENT PROVIDER Notes to Outpatient Provider: Ascites- unexplained; s/p paracentesis; continues to report severe abdominal pain, noted to have filled significant amount of Oxycodone in the last 4 weeks; Orders not resulted at time of discharge: Pending orders 12/01/17 04:00 Basic Metabolic Panel AM 040 CBC no Diff [Complete Blood Count w/o Diff] [HEME] [place] 04012/02/17 04:00 Basic Metabolic Panel AM 040 CBC no Diff [Complete Blood Count w/o Diff] [HEME] [place] 39912/03/17 04:00 Basic Metabolic Panel AM 040 CBC no Diff [Complete Blood Count w/o Diff] [HEME] AM 04012/04/17 04:00 Basic Metabolic Panel AM 040 CBC no Diff [Complete Blood Count w/o Diff] [HEME] AM 04012/05/17 04:00 Basic Metabolic Panel AM 040 CBC no Diff [Complete Blood Count w/o Diff] [HEME] AM 040 Date of Encounter: 11/30/17 Time of Encounter: 15:12 - Discharge Diagnosis (1) Ascites Priority: Primary Status: Acute Qualifiers: Ascites type: other type Qualified Code(s): R18.8 - Other ascites (2) ESRD (end stage renal disease) on dialysis Priority: Secondary Status: Chronic (3) HTN (hypertension) Priority: Secondary Status: Chronic Qualifiers: Hypertension type: essential hypertension Qualified Code(s): I10 - Essential (primary) hypertension (4) Anemia in chronic kidney disease (CKD) Priority: Secondary Status: Chronic Qualifiers: Chronic kidney disease stage: on chronic dialysis Qualified Code(s): N18.6 - End stage renal disease; D63.1 - Anemia in chronic kidney disease; D63.1 - Anemia in chronic kidney disease; Z99.2 - Dependence on renal dialysis; Z99.2 - Dependence on renal dialysis; Z99.2 - Dependence on renal dialysis; Z99.2 - Dependence on renal dialysis (5) Pleuritic chest pain Priority: Secondary Status: Chronic (6) Anxiety and depression Priority: Secondary Status: Chronic Hospital course: Mr. Mendez is a 42 year old male with history of chronic pain and end-stage renal disease, who was admitted with worsening abdominal distention and pain. Patient was noted to have a small amount of ascites with significant fluid in the left lateral abdominal wall which may represent fluid leak. He underwent paracentesis by IR with removal of around 1.5 L of fluid. Peritoneal fluid analysis was not indicative of infection. Fluid albumin is pending, total protein is 3.7. Limited abdominal ultrasound shows no acute abnormality. Echocardiogram shows preserved EF, moderate LV diastolic dysfunction, moderate concentric LVH. Continue beta vianca, LOVE inhibitor along with regular hemodialysis. Patient remained medically and hemodynamically stable. He continues to report significant abdominal pain and tenderness even to light touch, out of proportion to his clinical findings. He is noted to be on 10 mg oxycodone every 6 hours as needed at home and he is noted to have filled 224 tablets since 10/20/2017 on [facility] report. He will be discharged on a limited prescription for higher dosage; he is at high risk for somnolence and respiratory depression and failure due to being on HD, and he understands this. Discharge discussed with: patient, nurse - Time Spent with Patient Total time spent providing and/or coordinating discharge services: Greater than 30 minutes (40 min) - Discharge Medications Prescriptions: OxyCODONE Immed Rel [Roxicodone 15 MG] 15 mg PO Q6HR PRN 5 Days #20 tablet PRN Reason: Severe Pain Home Medications: Calcium Acetate [Phos-LO] 667 mg PO TIDWM 05/12/15 [History] cloNIDine HCl [Clonidine HCl] 0.2 mg PO TID 05/12/15 [History] Sertraline [Zoloft] 100 mg PO HS 01/22/16 [History] Renal Vitamin [Renal Caps Softgel] 1 mg PO DAILY 03/22/16 [History] Nitroglycerin 0.4 mg SL Q5MIN PRN #20 tab.subl 02/15/17 [Rx] Amlodipine Besylate 10 mg PO DAILY 03/13/17 [History] Carvedilol [Coreg] 25 mg PO BID 03/13/17 [History] Hydralazine HCl 100 mg PO TID 03/13/17 [History] Isosorbide MONOnitrate (24 HR) [Imdur] 30 mg PO DAILY 03/13/17 [History] Lisinopril [Zestril] 20 mg PO DAILY 03/13/17 [History] Calcitriol [Rocaltrol] 0.25 mcg PO MOWEFR 11/28/17 [History] Minoxidil 2.5 mg PO DAILY 11/28/17 [History] OxyCODONE Immed Rel [Roxicodone 15 MG] 15 mg PO Q6HR PRN 5 Days #20 tablet 11/30 [Rx] Allergies/Adverse Reactions: 3 Allergy/AdvReac Type Severity Reaction Status Date / Time Cephalosporins Allergy Hives Verified 11/28/17 13:52 codeine Allergy Hives Verified 11/28/17 13:52 Sulfa (Sulfonamide Allergy Hives Verified 11/28/17 13:52 Antibiotics) morphine AdvReac Difficulty Verified 11/28/17 13:52 Breathing Date of admission: 11/29/17 12:53 Primary care physician: Joss Balbuena MD Consults: 11/30/17 07:15 Consult to Dialysis [CONS] ONCE Discharging clinician: Courtney Frost Anticipated date of discharge: 11/30/17 - Constitutional Vitals: Temp Pulse Resp BP Pulse Ox 98.8 F 64 17 148/78 93 11/30/17 14:22 11/30/17 14:22 11/30/17 14:22 11/30/17 14:22 11/30/17 14:22 General appearance: Present: A&O X 3, answers questions appropriately Exam: . - Cardiovascular Cardiovascular exam: Present: RRR, +S1, +S2, systolic murmur. Absent: diastolic murmur, gallop, rubs - Patient Status Disposition: Home, Self-Care Condition: Good Functional capacity at discharge: independent ambulation Overall status at discharge: patient is progressing back to baseline - Discharge Instructions Follow Up With: Joss Balbuena MD [Primary Care Provider] - Additional Instructions: F/up with PCP in 1-2 weeks F/up with HD 3 times/week- MWF - Diet and Activity Activity: resume usual activities as tolerated Diet: low fat, low cholesterol, low salt diet, other (renal diet)
[2017-12-01 00:38] LABS: Fluid Source for Albumin ASCITES
== END 2017-11-30 16:08 | disposition home or self-care (01) | DRG 947 ==
LOC: 2ANU 11:25 → EMEROOARM 11:25 → SUATTDRO 13:40 → 2ANU 14:17
PROVIDERS: ADMIT Internal Medicine; ATTEND Internal Medicine